=== PATIENT | male | born 1945 | race Caucasian/White ===

== ENCOUNTER 2016-07-23 11:49 | Inpatient (IN) ==
--- NOTE | 2016-07-23 12:56 | Emergency Department Note ---
Disposition Clinical Impression: Fever of unknown origin, Acute renal insufficiency Altered mental status Qualifiers: Altered mental status type: unspecified Qualified Code(s): R41.82 - Altered mental status, unspecified Disposition: Admitted As Inpatient Condition: Fair Referrals: NO,PCP [Non-Partnered Physician] - Forms: ED Satisfaction Letter General Adult HPI - General Chief complaint: ED Shortness of Breath/Dyspnea Stated complaint: JOSIAH/Hallucinations/Swelling feet Time Seen by Provider: 07/23/16 12:44 Source: patient, family Limitations: no limitations - History of Present Illness HPI Narrative: 71-year-old male presents to the emergency department complaining of intermittent fevers, cough and vomiting up black fluid today. He has been in the hospital 2 times over the past 2-3 months for pneumonia. He has been on multiple antibiotics but states he still been spiking fevers. His girlfriend notes he is becoming confused and usually associated when he has a high fever around 102. He complains of lower extremity swelling and swelling in his abdomen. He denies any history of liver disease or heart disease. Denies any history of strokes or MIs. Today he vomited one time and noted that the fluid was black. He has had normal bowel movements without any melena or hematochezia. He denies any abdominal pain, pain into his back or pain in his chest. Denies any lightheadedness or passing out. Denies any weakness in his extremities. Denies any numbness in his extremities. Pain Scale: 5 - Related Data Home Medications Medication Instructions Recorded Confirmed Duloxetine HCl [Cymbalta] 60 mg PO BID 05/07/16 07/23/16 Gabapentin [Neurontin] 800 mg PO TID 05/07/16 07/23/16 HYDROcodone/Acet 10/325 mg [[place] 1 tab PO QID PRN 05/07/16 07/23/16 10-325 mg] Losartan Potassium [Cozaar] 100 mg PO DAILY 05/07/16 07/23/16 Lovastatin 40 mg PO DAILY 05/07/16 07/23/16 Montelukast [Singulair] 10 mg PO DAILY 05/07/16 07/23/16 Omeprazole [PriLOSEC] 40 mg PO BID 05/07/16 07/23/16 Tizanidine HCl [Zanaflex] 4 mg PO Q8H PRN 05/07/16 07/23/16 Aspirin 81 mg PO DAILY 05/24/16 07/23/16 Budesonide/Formoterol 160/4.5 2 puff IH BIDR 05/24/16 07/23/16 [Symbicort 160/4.5] Cholecalciferol (Vitamin D3) 50,000 unit PO OTT 05/24/16 07/23/16 [Vitamin D3] Fluticasone Propionate Nasal 1 spray NS DAILY PRN 05/24/16 07/23/16 [Flonase] Previous Rx's Medication Instructions Recorded Ipratropium/Albuterol Neb [Duoneb] 3 ml IH Q6HR PRN #30 inhsol 05/09/16 Amlodipine [Norvasc] 10 mg PO DAILY #30 tablet 05/27/16 Cyanocobalamin (B-12) [Vitamin B12] 1,000 mcg PO DAILY #30 tablet 05/27/16 Ferrous Sulfate 325 mg PO BIDWM #60 tablet 05/27/16 Folic Acid 5 mg PO DAILY #30 tablet 05/27/16 Allergies Allergy/AdvReac Type Severity Reaction Status Date / Time clonazepam [From Klonopin] AdvReac Nausea Verified 05/21/16 16:48 Oxycodone AdvReac Nausea Verified 05/24/16 10:21 Oxymorphone [From Opana] AdvReac Nausea Verified 05/24/16 10:20 All systems ED: reviewed and negative except as stated. Constitutional: Reports: fever Eyes: Denies: vision change Cardiovascular: Denies: chest pain, palpitations, dyspnea on exertion, syncope Respiratory: Reports: cough, wheezes Gastrointestinal: Denies: abdominal pain, nausea, vomiting, melena, hematochezia Musculoskeletal: Denies: back pain, neck pain Integumentary: Denies: rash Neurological: Denies: headache, weakness, numbness Past Medical History - Past Medical History Medical history: Reports: COPD, hyperlipidemia, hypertension, other Surgical history: Reports: herniorrhaphy Psychiatric history: Reports: no psych history - Social History Smoking Status: Former smoker Smokeless Tobacco Status: No Alcohol use: Reports: none Drug use: Reports: none Physical Exam General: He appears well, he is talkative and appropriate, he is alert and oriented 3 but does get intermittently confused. Cardiovascular: Regular rate and rhythm. S1, S2. No murmurs, rubs or gallops. Respiratory: Expiratory wheezes throughout. No respiratory distress. Intermittent dry coughing. Abdomen: Soft, nontender. No guarding, rebound or rigidity. Pulsatile abdominal mass. No palpable organomegaly including the liver. No epigastric tenderness. No palpable hernias. Eyes: Pupils equally round and reactive to light, extraocular muscles intact, conjunctiva clear, no scleral icterus HENT: Normocephalic, no signs of head injury. No oral mucosal lesions. Moist mucous membranes. No pharyngeal swelling. No tenderness over the TMJs. No difficulty swallowing, breathing or speaking. He does have some cervical, nontender adenopathy. Neuro: Cranial nerves intact. No motor or sensory deficit. 5/5 upper and lower shoulder strength throughout. Sensation intact throughout. Musculoskeletal: No joint tenderness or swelling. Bilateral lower extremity edema which is symmetric and involves the shins and ankles bilaterally. He has no tenderness or overlying redness. No signs of infection. Skin: No lesions. No diaphoresis. Normal turgor. Normal color Psych: Appropriate - General Limitations: no limitations General appearance: alert, in no apparent distress Course Course Narrative: 71-year-old male presents to the emergency department with ongoing intermittent fevers as high as 104. He gets very altered and confused and had reported hallucinations at home per his . He was recently in the hospital for pneumonia and has a history of COPD and underlying lung disease. A CT scan chest was performed one week ago on an outpatient basis which showed resolution of the pneumonia. On exam today he does appear intermittently confused but is awake and oriented. His vitals are stable. At this time is unclear what is causing his fever but after reviewing his chart he did have a CT scan of his neck performed 2 months ago which did show a mass on his vocal cords and some reactive adenopathy, there is concern that this could be malignancy and perhaps causing his fever. His labs reveal an acute renal insufficiency with a GFR of 39 in the presence of normal renal function previously. I feel the patient requires admission for acute renal failure and fever of unknown origin with altered mental status. Chest x-ray today is normal, urine is normal, blood cultures pending. I do not have a source of infection so I do not feel the patient is septic or needs septic protocol initiated at this time. Patient will require further evaluation in the hospital. I discussed with the on-call hospitalist, Dr. Ross who acccept for admission, no further orders at this time Vital Signs Temperature 99.1 F 07/23/16 12:17 Pulse Rate 102 07/23/16 12:17 Respiratory Rate 22 07/23/16 12:17 Blood Pressure 118/68 07/23/16 12:17 O2 Sat by Pulse Oximetry 95 07/23/16 12:17 Temperature 99.1 F 07/23/16 12:17 Pulse Rate 102 07/23/16 12:17 Respiratory Rate 18 07/23/16 13:41 Blood Pressure 118/68 07/23/16 12:17 O2 Sat by Pulse Oximetry 89 L 07/23/16 13:41 Oxygen Delivery Oxygen Delivery Room Air Medical Decision Making - Lab Data Result diagrams: 07/23/16 13:26 07/23/16 13:26 Lab Results 07/23/16 07/23/16 07/23/16 Range/Units 13:26 13:26 13:26 WBC 13.4 H (4.3-11.1) K/mcL RBC 3.48 L (4.19-5.50) M/mcL Hgb 10.4 L (12.9-16.9) g/dL Hct 32.3 L (37.5-50.1) % MCV 92.8 (83.0-100.0) fL MCH 29.9 (28.0-33.3) pg MCHC 32.2 (31.6-35.5) g/dL RDW 13.7 (11.5-14.5) % Plt Count 265 (140-400) K/mcL MPV 9.8 (9.4-12.4) fL Immature Gran % 0.4 (0-4) % Seg Neutrophils % 69.3 % Lymphocytes % 14.1 % Monocytes % 6.1 % Eosinophils % 9.5 % Basophils % 0.6 % Neutrophils # 9.3 H (1.6-8.9) K/mcL Lymphocytes # 1.9 (0.6-4.6) K/mcL Monocytes # 0.8 (0.0-1.3) K/mcL Eosinophils # 1.3 H (0.0-0.6) K/mcL Basophils # 0.1 (0.0-0.2) K/mcL Nucleated RBCs/100 WBC 0.2 H (0) /100 WBC Platelet Estimate Normal (Normal) Sodium 137 (136-145) mEq/L Potassium 4.5 (3.5-4.5) mEq/L Chloride 104 (98-109) mEq/L Carbon Dioxide 25 (19-29) mEq/L BUN 29 H (8-26) mg/dL Creatinine 1.75 H (0.72-1.25) mg/dL Est GFR ( Amer) 47 L (> 60) Est GFR (Non-Af Amer) 39 L (> 60) BUN/Creatinine Ratio 17 (6-26) Glucose 92 (70-99) mg/dL Calculated Osmolality 289 (280-300) Calcium 8.9 (8.6-10.8) mg/dL Total Bilirubin 0.5 (0.2-1.2) mg/dL Direct Bilirubin 0.2 (0.0-0.5) mg/dL Indirect Bilirubin 0.3 (0.0-1.2) mg/dL AST 23 (5-34) Units/L ALT 19 (0-55) Units/L Alkaline Phosphatase 69 (38-126) Units/L Ammonia (18-72) mcmol/L Troponin I 0.01 (0-0.03) ng/mL B-Natriuretic Peptide (0-100) pg/mL Serum Total Protein 6.6 (6.0-8.3) g/dL Albumin 3.1 L (3.5-5.0) g/dL Globulin 3.5 (2.4-3.5) g/dL Albumin/Globulin Ratio 0.9 L (1.1-2.2) Urine Color (Yellow) Urine Clarity (Clear) Urine pH (5.0-8.0) pH Units Ur Specific [place] (1.010-1.025) Urine Protein (Neg-Trace) mg/dL Urine Glucose (UA) (Normal) mg/dL Urine Ketones (Negative) mg/dL Urine Blood (Negative) Urine Nitrite (Negative) Urine Bilirubin (Negative) Urine Urobilinogen (Normal) mg/dL Ur Leukocyte Esterase (Negative) Ur Culture Indicated? (NO) 07/23/16 07/23/16 07/23/16 Range/Units 13:26 14:24 14:34 WBC (4.3-11.1) K/mcL RBC (4.19-5.50) M/mcL Hgb (12.9-16.9) g/dL Hct (37.5-50.1) % MCV (83.0-100.0) fL MCH (28.0-33.3) pg MCHC (31.6-35.5) g/dL RDW (11.5-14.5) % Plt Count (140-400) K/mcL MPV (9.4-12.4) fL Immature Gran % (0-4) % Seg Neutrophils % % Lymphocytes % % Monocytes % % Eosinophils % % Basophils % % Neutrophils # (1.6-8.9) K/mcL Lymphocytes # (0.6-4.6) K/mcL Monocytes # (0.0-1.3) K/mcL Eosinophils # (0.0-0.6) K/mcL Basophils # (0.0-0.2) K/mcL Nucleated RBCs/100 WBC (0) /100 WBC Platelet Estimate (Normal) Sodium (136-145) mEq/L Potassium (3.5-4.5) mEq/L Chloride (98-109) mEq/L Carbon Dioxide (19-29) mEq/L BUN (8-26) mg/dL Creatinine (0.72-1.25) mg/dL Est GFR ( Amer) (> 60) Est GFR (Non-Af Amer) (> 60) BUN/Creatinine Ratio (6-26) Glucose (70-99) mg/dL Calculated Osmolality (280-300) Calcium (8.6-10.8) mg/dL Total Bilirubin (0.2-1.2) mg/dL Direct Bilirubin (0.0-0.5) mg/dL Indirect Bilirubin (0.0-1.2) mg/dL AST (5-34) Units/L ALT (0-55) Units/L Alkaline Phosphatase (38-126) Units/L Ammonia 9 L (18-72) mcmol/L Troponin I (0-0.03) ng/mL B-Natriuretic Peptide 10 (0-100) pg/mL Serum Total Protein (6.0-8.3) g/dL Albumin (3.5-5.0) g/dL Globulin (2.4-3.5) g/dL Albumin/Globulin Ratio (1.1-2.2) Urine Color Yellow (Yellow) Urine Clarity Clear (Clear) Urine pH 6.0 (5.0-8.0) pH Units Ur Specific [place] 1.011 (1.010-1.025) Urine Protein Negative (Neg-Trace) mg/dL Urine Glucose (UA) Normal (Normal) mg/dL Urine Ketones Negative (Negative) mg/dL Urine Blood Negative (Negative) Urine Nitrite Negative (Negative) Urine Bilirubin Negative (Negative) Urine Urobilinogen Normal (Normal) mg/dL Ur Leukocyte Esterase Negative (Negative) Ur Culture Indicated? NO (NO) - EKG Data EKG #1 EKG results narrative: EKG shows a sinus rhythm with a rate of 94 bpm. There is no ST elevation or depression. UT, QRS, QT interval within normal limits. Normal axis. Normal R- wave progression. No T wave changes. Previous EKG on 05/06/16 shows similar wave morphology without any acute ischemic changes. Attestation Statement - Attestation Attestation: I examined this patient and my medical decision-making was reviewed with the [employer] MANAGER/PA/Advanced Practice Nurse/Resident Physician. I agree with the documented findings, disposition and treatment plan as described except to the extent set forth below. Patient presents to the emergency department from home. Family states is not having periods of confusion that are associated with fevers. Abdomen on for a few weeks. Has been treated for pneumonia couple of times. It continues. Had a fever 104 last night. On examination he is awake alert and appropriate for me. He is oriented 3. Lungs with diffuse expiratory wheezing. Abdomen soft nontender. Plan. Chest x-ray does not show any acute infections. He does have an elevated white blood cell count. Low-grade temp. Culture sent. Patient is admitted for further workup of his fever.
[2016-07-23] MEDS ORDERED: Ipratropium/Albuterol Neb 3 ML IH ONE (13:29)
[2016-07-23 13:41] LABS: Basophils # 0.1 K/mcL (0.0-0.2); Basophils % 0.6 %; Eosinophils # 1.3 K/mcL (0.0-0.6); Eosinophils % 9.5 %; Hematocrit 32.3 % (37.5-50.1); Hemoglobin 10.4 g/dL (12.9-16.9); Immature Granulocytes % 0.4 % (0-4); Lymphocytes # 1.9 K/mcL (0.6-4.6); Lymphocytes % 14.1 %; Mean Corpuscular HGB Conc 32.2 g/dL (31.6-35.5); Mean Corpuscular Hemoglobin 29.9 pg (28.0-33.3); Mean Corpuscular Volume 92.8 fL (83.0-100.0); Mean Platelet Volume 9.8 fL (9.4-12.4); Monocytes # 0.8 K/mcL (0.0-1.3); Monocytes % 6.1 %; Neutrophils # 9.3 K/mcL (1.6-8.9); Nucleated Red Blood Cells 0.2 /100 WBC (0); Platelet Count 265 K/mcL (140-400); Red Blood Count 3.48 M/mcL (4.19-5.50); Red Cell Distribution Width 13.7 % (11.5-14.5); Segmented Neutrophils % 69.3 %
[2016-07-23 13:53] LABS: Albumin 3.1 g/dL (3.5-5.0); Albumin/Globulin Ratio 0.9 (1.1-2.2); Bilirubin,Direct 0.2 mg/dL (0.0-0.5); Bilirubin,Indirect 0.3 mg/dL (0.0-1.2); Bilirubin,Total 0.5 mg/dL (0.2-1.2); Calcium 8.9 mg/dL (8.6-10.8); Globulin 3.5 g/dL (2.4-3.5); Total Protein 6.6 g/dL (6.0-8.3)
[2016-07-23 13:54] LABS: Potassium 4.5 mEq/L (3.5-4.5)
[2016-07-23] MEDS ORDERED: 0.9 % Sodium Chloride 1,000 ML IV ONE ×2 (14:03→14:20)
[2016-07-23 14:05] LABS: Platelet Estimate Normal (Normal)
[2016-07-23 14:38] LABS: Bilirubin,Urine Negative (Negative); Blood,Urine Negative (Negative); Clarity,Urine Clear (Clear); Color,Urine Yellow (Yellow); Glucose,Urine (UA) Normal (Normal); Ketones,Urine Negative (Negative); Leukocyte Esterase,Urine Negative (Negative); Nitrite,Urine Negative (Negative); Protein,Urine Negative (Neg-Trace); Specific Gravity,Urine 1.011 (1.010-1.025); Urobilinogen,Urine Normal (Normal)
[2016-07-23] MEDS ORDERED: Acetaminophen 325 MG TABLET PO PRN (16:49)
--- NOTE | 2016-07-23 16:49 | Internal Med History&Physical ---
<John Chaudhary - Last Filed: 07/23/16 17:09> Date of Encounter: 07/23/16 Time of Encounter: 16:00 Assessment and Plan (1) Sepsis Current visit: No Status: Acute - 4/4 SIRS criteria (tachycardia, tachypnea, leukocytosis and intermittent fevers per patient). - Possible sources of infection include pneumonia (bacterial, histoplasmosis, aspergillosis) and GI. 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 - UA doesn't suggest UTI. - Blood cultures pending. - Check respiratory infection panel, HIV, viral hepatitis panel, ESR, CRP, ferritin. - Plan to have CT chest & A/P with IV contrast for further evaluation once renal function improves. - Start vancomycin, Zosyn and Levaquin. - IV NS bolus and maintenance. - Closely monitor. Qualifiers: Sepsis type: sepsis due to unspecified organism Qualified Code(s): A41.9 - Sepsis, unspecified organism (2) Healthcare-associated pneumonia Current visit: No Status: Acute - Concern of HCAP given recent hospitalization, despite CXR seems to be unremarkable. - Check respiratory infection panel. - Start vancomycin, Zosyn, Levaquin. (3) LAURYN (acute kidney injury) Current visit: No Status: Acute - SCr 1.75 on initial presentation, elevated from baseline ~ 1.1. - Likely secondary to dehydration (given reported poor oral intake) and/or sepsis. - IV NS bolus and maintenance. - Continue to monitor renal function and electrolytes. (4) Anemia Current visit: No Status: Chronic - Hgb 10.4 today, relative stable compared to 9.9 two months ago. - Concern of possible hemoptysis/hematemesis given reported coughing/throwing up black content. - Fecal Hemoccult pending. - Closely monitor H&H. Qualifiers: Anemia type: folate deficiency Folate deficiency anemia type: dietary Qualified Code(s): 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 (5) COPD (chronic obstructive pulmonary disease) Current visit: No Status: Chronic - bronchodilator prn. Qualifiers: COPD type: COPD with acute lower respiratory infection Qualified Code(s): J44.0 - Chronic obstructive pulmonary disease with acute lower respiratory infection (6) HTN (hypertension) Current visit: No Status: Chronic - Continue home regimen anti-hypertensive. Qualifiers: Hypertension type: essential hypertension Qualified Code(s): I10 - Essential (primary) hypertension (7) DVT prophylaxis Current visit: No Status: Acute - EPCD. - No pharmacological DVT prophylaxis for now given the concern of potential hemoptysis/hematemesis. Internal Medicine - H&P: HPI Chief complaint: Intermittent fever & altered mental status History of present illness: Mr. Sweet is a 71 yo male with PMH of COPD, HTN and black lung disease. Patient presented with intermittent fevers and AMS. Per patient's family at bedside, patient has fever as high as 104 at home and it's associated with altered mental status. Patient also recalls cough/throwing up black content. Patient has significant cough and chronic shortness of breath. Patient also complains of abdominal distension & bilateral lower extremity swelling. Patient also has some difficulty urinating but denies dysuria or hematuria. Patient denies weight loss, night sweat, nausea, vomiting, diarrhea, hematochezia, melena, vision change, hearing change, numbness/tingling, focal weakness. Patient does have some right ear pain and occasional pink discharge from ear to nose. Patient was seen by Dr. Mazariegos of [facility] who thinks patient has TMJ arthritis. Patient was hospitalized in April & May 2016 for pneumonia. Patient and his family have significant concern about the intermittent fever and likes to have complete work-up. Patient agrees to be checked for HIV. Past Med Surg Social Fam HX - Past Medical History Medical history: COPD, hyperlipidemia, hypertension, other Psychiatric history: no psych history - Past Surgical History Surgical History: herniorrhaphy - Social History Smoking Status: Former smoker Smokeless Tobacco Status: No Alcohol use: none Drug use: none Internal Medicine - H&P: Meds Duloxetine HCl [Cymbalta] 60 mg PO BID 05/07/16 [History] Gabapentin [Neurontin] 800 mg PO TID 05/07/16 [History] HYDROcodone/Acet 10/325 mg [[place] 10-325 mg] 1 tab PO QID PRN 05/07/16 [History] Losartan Potassium [Cozaar] 100 mg PO DAILY 05/07/16 [History] Lovastatin 40 mg PO DAILY 05/07/16 [History] Montelukast [Singulair] 10 mg PO DAILY 05/07/16 [History] Omeprazole [PriLOSEC] 40 mg PO BID 05/07/16 [History] Tizanidine HCl [Zanaflex] 4 mg PO Q8H PRN 05/07/16 [History] Ipratropium/Albuterol Neb [Duoneb] 3 ml IH Q6HR PRN #30 inhsol 05/09/16 [Rx] Aspirin 81 mg PO DAILY 05/24/16 [History] Budesonide/Formoterol 160/4.5 [Symbicort 160/4.5] 2 puff IH BIDR 05/24/16 [ History] Cholecalciferol (Vitamin D3) [Vitamin D3] 50,000 unit PO OTT 05/24/16 [History] Fluticasone Propionate Nasal [Flonase] 1 spray NS DAILY PRN 05/24/16 [History] Amlodipine [Norvasc] 10 mg PO DAILY #30 tablet 05/27/16 [Rx] Cyanocobalamin (B-12) [Vitamin B12] 1,000 mcg PO DAILY #30 tablet 05/27/16 [Rx] Ferrous Sulfate 325 mg PO BIDWM #60 tablet 05/27/16 [Rx] Folic Acid 5 mg PO DAILY #30 tablet 05/27/16 [Rx] Allergies clonazepam [From Klonopin] Adverse Reaction (Verified 05/21/16 16:48) Nausea Oxycodone Adverse Reaction (Verified 05/24/16 10:21) Nausea Oxymorphone [From Opana] Adverse Reaction (Verified 05/24/16 10:20) Nausea tiotropium [From Spiriva with HandiHaler] Adverse Reaction (Verified 07/23/16 16 :41) Itching All Systems PM: A 10-system review of systems was performed and is negative for pertinent findings except as documented above in the HPI. - Constitutional Constitutional: anorexia, chills, fever(s), no weight loss - EENT Eyes: no change in vision Ears: no decreased hearing Nose, mouth and throat: no dysphagia, no nasal congestion, no odynophagia, no sore throat - Cardiovascular Cardiovascular ROS IM: no chest pain, no lightheadedness, no palpitations, no syncope - Respiratory Respiratory: cough, dyspnea, hemoptysis - Gastrointestinal Gastrointestinal: as per HPI, no abdominal pain, no diarrhea, no hematochezia, no melena, no nausea, no vomiting - Genitourinary Genitourinary ROS male: difficulty urinating, no dysuria, no hematuria - Musculoskeletal Musculoskeletal ROS IM: back pain, no arthralgias, no myalgias - Integumentary Integumentary IM: no pruritus, no rash - Neurological Neurological ROS: no focal weakness, no numbness, no tingling - Hematologic/Lymphatic Hematologic/Lymphatic: easy bruising, no easy bleeding - Constitutional Vitals: Temp Pulse Resp BP Pulse Ox 98.1 F 92 18 138/80 97 07/23/16 16:41 07/23/16 15:13 07/23/16 16:41 07/23/16 16:41 07/23/16 15:13 General appearance: Present: cooperative, A&O X 3, no acute distress - Head Head exam: Present: atraumatic, normocephalic - Eye Eye exam: Present: PERRL, conjuntiva pink, sclera anicteric - Neck Neck exam general surgery: Present: supple, trachea midline. Absent: lymphadenopathy - Respiratory Respiratory exam: Present: rhonchi, wheezes. Absent: accessory muscle use, rales - Cardiovascular Cardiovascular exam: Present: +S1, +S2, tachycardia. Absent: diastolic murmur, gallop, rubs, systolic murmur - GI/Abdominal GI/Abdominal exam: Present: distended, normal bowel sounds, soft, no peritoneal signs. Absent: tenderness - Extremities Exam Extremities exam: Present: pedal edema (Mild), warm, radial pulses palpable and symetrical. Absent: calf tenderness, cyanotic - Neurological Exam Neurological exam: Present: CN II-XII intact, oriented X3, no focal deficits. Absent: pronater drift, facial droop, speech deficit - Skin Skin exam: Present: dry, intact, warm Internal Med - H&P Results - Labs CBC & Chem 7: 07/23/16 13:26 07/23/16 13:26 <Kael Ross - Last Filed: 07/23/16 18:59> Date of Encounter: 07/23/16 Internal Medicine - H&P: HPI History of present illness: Mr. Sweet is a 71 year old male Past Med Surg Social Fam HX - Family History Mother Living Status: Hx Family Cardiac Disorders: Yes (HTN) Father Living Status: Hx Family Cardiac Disorders: Yes (HTN) All Systems PM: A 10-system review of systems was performed and is negative for pertinent findings except as documented above in the HPI. - Constitutional Vitals: Temp Pulse Resp BP Pulse Ox 98.5 F 92 16 131/59 96 07/23/16 16:51 07/23/16 16:51 07/23/16 16:51 07/23/16 16:51 07/23/16 16:51 Internal Med - H&P Results - Labs CBC & Chem 7: 07/23/16 13:26 07/23/16 13:26 - Attending Attestation I have seen and examined this patient independently. I have discussed the case with the resident, Dr. Ernestina Chaudhary. I agree with the data gathering in the HPI, physical examination findings, assessment and plan as documented by the resident. Fever, needs workup, will start empiric coverage. LAURYN, will give iv fluids prior to CT. D/W patient.
[2016-07-23] MEDS ORDERED: Levofloxacin 750 MG/150 ML 750 MG/150 ML BAG IVPB SCH (17:00)
[2016-07-23] MEDS ORDERED: Vancomycin 1,000 MG in D5% in Water 250 ML IVPB SCH (17:00)
[2016-07-23] MEDS ORDERED: 0.9 % Sodium Chloride 1,000 ML IVC ONE (17:10)
[2016-07-23] MEDS ORDERED: Vancomycin 1,500 MG in D5% in Water 250 ML IVPB ONE (17:52)
--- NOTE | 2016-07-23 17:55 | Electrocardiograph Report ---
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
[2016-07-23 18:32] LABS: % Iron Saturation 6 % (20-55); C-Reactive Protein 63 mg/L (Less than 5); Iron 18 mcg/dL (65-175); Transferrin 222 mg/dL (174-364)
[2016-07-23 18:54] LABS: Ferritin 94 ng/ml (22-275)
[2016-07-23] MEDS: 0.9 % Sodium Chloride 1,000 ML IVC SCH (19:08)
[2016-07-23] MEDS: Budesonide/Formoterol 160/4.5 MDI IH SCH (21:05)
[2016-07-23] MEDS: Ipratropium/Albuterol Neb 3 ML IH PRN (21:05)
[2016-07-23] MEDS: Gabapentin 400 MG CAPSULE PO SCH (21:21)
[2016-07-23] MEDS: Piperacillin/Tazobactam 3.375 GM in D5% in Water (Mini-Bag+) 100 ML IVPB SCH (23:24)
[2016-07-24 00:15] LABS: Adenovirus Not Detected (Not Detect); Bordetella Pertussis Not Detected (Not Detect); Chlamydophila pneumoniae Not Detected (Not Detect); Coronavirus 229E Not Detected (Not Detect); Coronavirus HKU1 Not Detected (Not Detect); Coronavirus NL63 Not Detected (Not Detect); Coronavirus OC43 Not Detected (Not Detect); Human Metapneumovirus Not Detected (Not Detect); Human Rhinovirus/Enterovirus Not Detected (Not Detect); Influenza A Subtype 2009 H1 Not Detected (Not Detect); Influenza A Untypeable Not Detected (Not Detect); Influenza B Not Detected (Not Detect); Mycoplasma pneumoniae Not Detected (Not Detect); Parainfluenza Virus 1 Not Detected (Not Detect); Parainfluenza Virus 2 Not Detected (Not Detect); Parainfluenza Virus 3 Not Detected (Not Detect); Parainfluenza Virus 4 Not Detected (Not Detect); Respiratory Syncytial Virus Not Detected (Not Detect)
[2016-07-24 01:37] LABS: HIV-1&2 Antibody & p24 Ag Nonreactive (Nonreactive); Hepatitis A Antibody IgM Nonreactive (Nonreactive); Hepatitis B Core IgM Nonreactive (Nonreactive); Hepatitis B Surface Antigen Nonreactive (Nonreactive); Hepatitis C Virus Antibody Nonreactive (Nonreactive)
[2016-07-24 05:02] LABS: Basophils % 0.5 %; Eosinophils # 1.2 K/mcL (0.0-0.6); Eosinophils % 16.5 %; Hematocrit 32.3 % (37.5-50.1); Hemoglobin 10.1 g/dL (12.9-16.9); Immature Granulocytes % 0.4 % (0-4); Lymphocytes # 1.6 K/mcL (0.6-4.6); Lymphocytes % 21.3 %; Mean Corpuscular HGB Conc 31.3 g/dL (31.6-35.5); Mean Corpuscular Hemoglobin 29.3 pg (28.0-33.3); Mean Corpuscular Volume 93.6 fL (83.0-100.0); Mean Platelet Volume 9.3 fL (9.4-12.4); Monocytes # 0.5 K/mcL (0.0-1.3); Monocytes % 6.5 %; Neutrophils # 4.1 K/mcL (1.6-8.9); Platelet Count 232 K/mcL (140-400); Red Blood Count 3.45 M/mcL (4.19-5.50); Red Cell Distribution Width 13.7 % (11.5-14.5); Segmented Neutrophils % 54.8 %
[2016-07-24 05:26] LABS: BUN/Creatinine Ratio 14 (6-26); Calcium 8.8 mg/dL (8.6-10.8); Carbon Dioxide 25 mEq/L (19-29); Chloride 111 mEq/L (98-109); Glucose 88 mg/dL (70-99); Osmolality,Calculated 297 (280-300); Sodium 143 mEq/L (136-145); eGFR For African Americans > 60 (> 60); eGFR For Non-African Americans 60 (> 60)
[2016-07-24 05:27] LABS: Blood Urea Nitrogen 17 mg/dL (8-26)
[2016-07-24 05:28] LABS: Potassium 4.3 mEq/L (3.5-4.5)
[2016-07-24] MEDS: 0.9 % Sodium Chloride 1,000 ML IVC SCH ×2 (07:36→23:06)
[2016-07-24] MEDS: amLODIPine 5 MG TABLET PO SCH (07:37)
[2016-07-24] MEDS: Piperacillin/Tazobactam 3.375 GM in D5% in Water (Mini-Bag+) 100 ML IVPB SCH ×3 (07:37→23:06)
[2016-07-24] MEDS: Gabapentin 400 MG CAPSULE PO SCH ×3 (07:38→20:28)
[2016-07-24] MEDS: Aspirin 81 MG TAB.CHEW PO SCH (07:38)
[2016-07-24] MEDS: Budesonide/Formoterol 160/4.5 MDI IH SCH ×2 (08:18→20:00)
[2016-07-24] MEDS: Ipratropium/Albuterol Neb 3 ML IH PRN (13:28)
--- NOTE | 2016-07-24 14:16 | Internal Med Progress Note ---
<Iraida Botello Niharika - Last Filed: 07/24/16 14:11> Date of Encounter: 07/24/16 Time of Encounter: 09:10 - Assessment and plan (1) Sepsis Current Visit: Yes Status: Acute Assessment and plan: 4/4 SIRS criteria on admission (tachycardia, tachypnea, leukocytosis, intermittent fevers per patient) Today--T:97.9F, P:106, R:17, BP:131/68, O2:93% (RA) Pneumonia possible source of infection UA completed and not suggestive of UTI Blood cultures pending Respiratory panel, HIV, viral hepatitis panel negative CRP elevated at 63, ESR elevated at 30 CT abd/pelvis, CT chest, CT neck with contrast ordered Vanc, Zosyn, Levaquin for antibiotic coverage IVF Continue to monitor Qualifiers: Sepsis type: sepsis due to unspecified organism Qualified Code(s): A41.9 - Sepsis, unspecified organism (2) Healthcare-associated pneumonia Current Visit: No Status: Acute Assessment and plan: Possible HCAP given recent hospitalization Respiratory panel negative Antibiotic coverage with Vanc, Zosyn, Levaquin (3) LAURYN (acute kidney injury) Current Visit: No Status: Acute Assessment and plan: Creatinine 1.20 today (1.75 yesterday) IVF for rehydration Continue to monitor (4) Anemia Current Visit: No Status: Chronic Assessment and plan: Hgb 10.1 today (10.4 yesterday), 9.9 two months ago Concern for possible hemoptysis/hematemesis given reported coughing/throating up black stuff Continue to monitor Qualifiers: Anemia type: folate deficiency Folate deficiency anemia type: dietary Qualified Code(s): 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 (5) COPD (chronic obstructive pulmonary disease) Current Visit: No Status: Chronic Assessment and plan: Bronchodilators prn Qualifiers: COPD type: COPD with acute lower respiratory infection Qualified Code(s): J44.0 - Chronic obstructive pulmonary disease with acute lower respiratory infection (6) HTN (hypertension) Current Visit: No Status: Chronic Assessment and plan: Continue home medications Qualifiers: Hypertension type: essential hypertension Qualified Code(s): I10 - Essential (primary) hypertension (7) DVT prophylaxis Current Visit: No Status: Acute Assessment and plan: EPCDs for DVT prophylaxis now - Subjective Interval history: Pt reports that he is feeling better today. He denies any subjective fevers over night and that his abdominal distention seems to have improved. He continues to have a cough and shortness of breath which he states is chronic for him. He reports that the cough is still productive. He denies any blood or dark tarry stools since arrival. He admits that before being admitted to [facility], he had an episode of dark emesis which filled the toilet. - Constitutional Vitals: Temp Pulse Resp BP Pulse Ox 97.9 F 98 16 115/65 91 L 07/24/16 11:20 07/24/16 11:20 07/24/16 11:20 07/24/16 11:20 07/24/16 11:20 General appearance: Present: cooperative, A&O X 3, no acute distress - Head Head exam: Present: atraumatic, normocephalic - Eye Eye exam: Present: PERRL, conjuntiva pink, sclera anicteric Pupils: Present: PERRL - ENT ENT exam: Present: mucous membranes moist - Neck Neck exam general surgery: Present: lymphadenopathy (Left anterior cervical lymphadenopathy), supple, trachea midline - Respiratory Respiratory exam: Present: wheezes (Course breath sounds and wheezing scattered throughout) - Cardiovascular Cardiovascular exam: Present: +S1, +S2, tachycardia. Absent: diastolic murmur, gallop, rubs, systolic murmur - GI/Abdominal GI/Abdominal exam: Present: normal bowel sounds, soft, tenderness (RUQ and epigastric pain, negative Nye's sign). Absent: distended, guarding, rebound , rigid - Extremities Exam Extremities exam: Present: warm, radial pulses palpable and symetrical. Absent : calf tenderness, cyanotic, pedal edema - Neurological Exam Neurological exam: Present: CN II-XII intact, oriented X3, no focal deficits. Absent: pronater drift, facial droop, speech deficit - Skin Skin exam: Present: dry, intact Internal Medicine: Result - Labs CBC & Chem 7: 07/24/16 04:45 07/24/16 04:45 Labs: Short CBC 07/24/16 Range/Units 04:45 WBC 7.5 (4.3-11.1) K/mcL Hgb 10.1 L (12.9-16.9) g/dL Hct 32.3 L (37.5-50.1) % Plt Count 232 (140-400) K/mcL Neutrophils # 4.1 (1.6-8.9) K/mcL [facility] 07/24/16 04:45 Sodium 143 Potassium 4.3 Chloride 111 H Carbon Dioxide 25 BUN 17 D Creatinine 1.20 Glucose 88 Calcium 8.8 - VTE Documentation of Mechanical Device: Intermittent pneumatic compression device Consult Discharge Plan - Plan Referrals: Leonor Russo CNP [Primary Care Provider] - 07/31/16 1:00 pm <Kael Ross - Last Filed: 07/24/16 18:18> Date of Encounter: 07/24/16 - Constitutional Vitals: Temp Pulse Resp BP Pulse Ox 98.5 F 101 18 129/65 95 07/24/16 15:56 07/24/16 15:56 07/24/16 15:56 07/24/16 15:56 07/24/16 15:56 Internal Medicine: Result - Labs CBC & Chem 7: 07/24/16 04:45 07/24/16 04:45 Labs: Short CBC 07/24/16 Range/Units 04:45 WBC 7.5 (4.3-11.1) K/mcL Hgb 10.1 L (12.9-16.9) g/dL Hct 32.3 L (37.5-50.1) % Plt Count 232 (140-400) K/mcL Neutrophils # 4.1 (1.6-8.9) K/mcL [facility] 07/24/16 04:45 Sodium 143 Potassium 4.3 Chloride 111 H Carbon Dioxide 25 BUN 17 D Creatinine 1.20 Glucose 88 Calcium 8.8 - Impressions Impressions Abdomen/Pelvis CT 07/24/16 15:00 IMPRESSION: No acute intra-abdominal abnormality identified. Cholelithiasis without evidence of acute cholecystitis. No bowel obstruction, excessive amount of stool, or ascites. Normal appendix. Small hiatal hernia. D/ / Fernando Roach MD / Fernando Roach MD Interpreting Provider: Fernando Roach MD Chest CT 07/24/16 15:00 IMPRESSION: Scattered small ground-glass opacities throughout the lungs worrisome for diffuse multifocal pneumonia predominantly within the base of the left lower lobe and posterior segment of the right upper lobe. These opacities were not present on the exam of 07/12/2016. No worrisome adenopathy identified in the chest. No finding worrisome for malignancy. D/ / Fernando Roach MD / Fernando Roach MD Interpreting Provider: Fernando Roach MD Soft Tissue Neck CT 07/24/16 15:00 IMPRESSION: No acute abnormality of the soft tissue structures of the neck. Small normal sized lymph nodes in each side of the neck. No evident adenopathy. Overall the lymph nodes appear smaller than on the prior study. No other significant change from the prior study. D/ / Fernando Roach MD / Fernando Roach MD Interpreting Provider: Fernando Roach MD - Attending Attestation The patient was seen and examined with the resident during rounds. I agree with the physical examination findings, assessment and plan as documented by the resident, Dr. Botello. Fever reported prior to admission. No evidence of fever while inhouse. Continue with therapy for HCAP.
[2016-07-24] MEDS: *HR* HYDROcodone/Acet 10/325 mg TABLET PO PRN (15:36)
[2016-07-24] MEDS: Vancomycin 750 MG in D5% in Water 250 ML IVPB SCH (19:47)
[2016-07-24] MEDS: tiZANidine 4 MG TABLET PO PRN (22:00)
[2016-07-25 05:00] LABS: Basophils # 0.1 K/mcL (0.0-0.2); Basophils % 0.7 %; Eosinophils # 1.6 K/mcL (0.0-0.6); Eosinophils % 20.8 %; Hematocrit 31.1 % (37.5-50.1); Hemoglobin 10.1 g/dL (12.9-16.9); Immature Granulocytes % 0.4 % (0-4); Lymphocytes # 1.8 K/mcL (0.6-4.6); Lymphocytes % 24.4 %; Mean Corpuscular HGB Conc 32.5 g/dL (31.6-35.5); Mean Corpuscular Hemoglobin 30.1 pg (28.0-33.3); Mean Corpuscular Volume 92.8 fL (83.0-100.0); Mean Platelet Volume 9.4 fL (9.4-12.4); Monocytes # 0.5 K/mcL (0.0-1.3); Monocytes % 7.1 %; Neutrophils # 3.5 K/mcL (1.6-8.9); Platelet Count 239 K/mcL (140-400); Red Blood Count 3.35 M/mcL (4.19-5.50); Red Cell Distribution Width 13.6 % (11.5-14.5); Segmented Neutrophils % 46.6 %
[2016-07-25 05:04] LABS: BUN/Creatinine Ratio 11 (6-26); Blood Urea Nitrogen 11 mg/dL (8-26); Calcium 9.3 mg/dL (8.6-10.8); Carbon Dioxide 27 mEq/L (19-29); Chloride 108 mEq/L (98-109); Glucose 92 mg/dL (70-99); Osmolality,Calculated 291 (280-300); Sodium 141 mEq/L (136-145); eGFR For African Americans > 60 (> 60); eGFR For Non-African Americans > 60 (> 60)
[2016-07-25 05:41] LABS: Platelet Estimate Normal (Normal)
[2016-07-25] MEDS: Budesonide/Formoterol 160/4.5 MDI IH SCH ×2 (08:08→20:50)
[2016-07-25] MEDS: Ipratropium/Albuterol Neb 3 ML IH PRN (08:08)
[2016-07-25] MEDS: amLODIPine 5 MG TABLET PO SCH (08:41)
[2016-07-25] MEDS: Piperacillin/Tazobactam 3.375 GM in D5% in Water (Mini-Bag+) 100 ML IVPB SCH ×2 (08:43→17:36)
[2016-07-25] MEDS: Gabapentin 400 MG CAPSULE PO SCH ×3 (08:43→20:55)
[2016-07-25] MEDS: Aspirin 81 MG TAB.CHEW PO SCH (08:43)
[2016-07-25] MEDS: *HR* HYDROcodone/Acet 10/325 mg TABLET PO PRN (08:47)
--- NOTE | 2016-07-25 11:22 | Pulmonology Consult Note ---
<Ruben Boston - Last Filed: 07/25/16 11:18> Date of Encounter: 07/25/16 Time of Encounter: 11:19 Assessment and Plan (1) Fever of unknown origin Current Visit: Yes Status: Acute At this point there is no clear-cut explanation for the patient's fever. It should be noted that the patient has had no documented fevers on any of his admissions to the hospital. CT scan of the abdomen is unremarkable, CT scan of the soft tissues of the neck show small normal sized lymph nodes that have decreased in size from previous studies. CT scan of the chest did show scattered extremely small focal areas of groundglass opacities particularly in the left lower lobe. Differential at this time is broad and includes infectious , inflammatory, and malignant causes. As far as infectious causes there is been no pathogen isolated, hepatitis HIV panel are negative. Risk for TB is low given no reported history of exposure but we will test for this. We will perform bronchoscopy with BAL and brushings and sent for microbiology for further examination. The risks and benefits of the procedure were explained to patient and he is agreeable to proceed. Vasculitis is also a concern given his fevers are the patient is not having hemoptysis or hematuria. If the current evaluation does not reveal any cause it may be worthwhile to check an ANCA and get input from rheumatology. (2) COPD (chronic obstructive pulmonary disease) Current Visit: No Status: Chronic Patient may have an element of exacerbation with cough, shortness of breath and wheezing present on exam. Patient is currently on broad-spectrum antibiotics, short acting long-acting bronchodilators. We will add a 5 day course of prednisone 40 mg daily. Qualifiers: COPD type: COPD with acute lower respiratory infection Qualified Code(s): J44.0 - Chronic obstructive pulmonary disease with acute lower respiratory infection History of Present Illness Consult date: 07/25/16 Requesting physician: Kael Ross Reason for consult: other (Fever) Chief complaint: Fever History of present illness: Patient is a 71-year-old male with history of COPD who presents with recurring fevers. Patient states that at home several times a week at night he will have fevers and chills with temperatures measured as high as 104 degrees Fahrenheit. Prior to presentation he did have one episode of vomiting with black emesis. He states his been going on for months now and has had multiple admissions and physician evaluations without a clear-cut cause. In the past several months she has been admitted for pneumonia twice and has been treated with antibiotics. He states he felt a little better for short time on antibiotics but once off the antibiotics his symptoms return. He feels that his breathing is at about his baseline and he does report a mild cough but he said it is not too severe for him. He denies hemoptysis, hematuria. Past Med Surg Social Fam HX - Past Medical History Medical history: COPD, hyperlipidemia, hypertension, other Psychiatric history: no psych history - Past Surgical History Surgical History: herniorrhaphy - Social History Smoking Status: Former smoker Smokeless Tobacco Status: No Alcohol use: none Drug use: none - Family History Mother Living Status: Hx Family Cardiac Disorders: Yes (HTN) Father Living Status: Hx Family Cardiac Disorders: Yes (HTN) Medications and Allergies Duloxetine HCl [Cymbalta] 60 mg PO BID 05/07/16 [History] Gabapentin [Neurontin] 800 mg PO TID 05/07/16 [History] HYDROcodone/Acet 10/325 mg [[place] 10-325 mg] 1 tab PO QID PRN 05/07/16 [History] Losartan Potassium [Cozaar] 100 mg PO DAILY 05/07/16 [History] Lovastatin 40 mg PO DAILY 05/07/16 [History] Montelukast [Singulair] 10 mg PO HS 05/07/16 [History] Omeprazole [PriLOSEC] 40 mg PO BID 05/07/16 [History] Tizanidine HCl [Zanaflex] 4 mg PO Q8H PRN 05/07/16 [History] Ipratropium/Albuterol Neb [Duoneb] 3 ml IH Q6HR PRN #30 inhsol 05/09/16 [Rx] Aspirin 81 mg PO DAILY 05/24/16 [History] Budesonide/Formoterol 160/4.5 [Symbicort 160/4.5] 2 puff IH BIDR 05/24/16 [ History] Cholecalciferol (Vitamin D3) [Vitamin D3] 50,000 unit PO OTT 05/24/16 [History] Fluticasone Propionate Nasal [Flonase] 1 spray NS DAILY PRN 05/24/16 [History] Amlodipine [Norvasc] 10 mg PO DAILY #30 tablet 05/27/16 [Rx] Cyanocobalamin (B-12) [Vitamin B12] 1,000 mcg PO DAILY #30 tablet 05/27/16 [Rx] Ferrous Sulfate 325 mg PO BIDWM #60 tablet 05/27/16 [Rx] Folic Acid 5 mg PO DAILY #30 tablet 05/27/16 [Rx] Allergies clonazepam [From Klonopin] Adverse Reaction (Verified 05/21/16 16:48) Nausea Oxycodone Adverse Reaction (Verified 05/24/16 10:21) Nausea Oxymorphone [From Opana] Adverse Reaction (Verified 05/24/16 10:20) Nausea tiotropium [From Spiriva with HandiHaler] Adverse Reaction (Verified 07/23/16 16 :41) Itching All Systems: A 10-system review of systems was performed and is negative for pertinent findings except as documented above in the HPI. - Constitutional Constitutional: chills, fever(s), night sweats, no weight loss - EENT Nose, mouth and throat: no sinus pain, no sinus pressure, no throat swelling - Cardiovascular Cardiovascular: no chest pain, no diaphoresis, no dyspnea, no edema - Respiratory Respiratory: cough, dyspnea (Baseline), no hemoptysis, no wheezing, no chest congestion, no excessive phlegm production, no change in phlegm color - Gastrointestinal Gastrointestinal: abdominal pain (Lower), vomiting, no diarrhea, no nausea - Genitourinary Genitourinary: no hematuria, no urinary frequency, no urinary hesitancy, no urinary incontinence, no urinary urgency - Musculoskeletal Musculoskeletal: no weakness, no joint swelling, no stiffness - Neurological Neurological: no dizziness, no numbness, no tingling Physical Examination General appearance: no acute distress ENT: oropharynx moist Effort: normal Auscultation: bilateral: wheezes Cardiovascular: regular rate and rhythm Gastrointestinal: normoactive bowel sounds, soft, non-tender, non-distended Extremities: no cyanosis, no edema, no clubbing normal mental status, non-focal exam mood appropriate, affect normal Results - Laboratory Findings CBC and BMP: 07/25/16 04:25 07/25/16 04:25 Abnormal lab findings: Abnormal lab results RBC 3.35 M/mcL (4.19-5.50) L 07/25/16 04:25 Hgb 10.1 g/dL (12.9-16.9) L 07/25/16 04:25 Hct 31.1 % (37.5-50.1) L 07/25/16 04:25 Eosinophils # 1.6 K/mcL (0.0-0.6) H 07/25/16 04:25 Nucleated RBCs/100 WBC 0.2 /100 WBC (0) H 07/23/16 13:26 ESR 30 mm/hr (0-10) H 07/23/16 17:34 Iron 18 mcg/dL (65-175) L 07/23/16 17:34 % Saturation 6 % (20-55) L 07/23/16 17:34 Ammonia 9 mcmol/L (18-72) L 07/23/16 14:34 C-Reactive Protein 63 mg/L (Less than 5) H 07/23/16 17:34 Albumin 3.1 g/dL (3.5-5.0) L 07/23/16 13:26 Albumin/Globulin Ratio 0.9 (1.1-2.2) L 07/23/16 13:26 - Clinical Findings Intake & Output: Intake & Output 07/24/16 07/25/16 07/25/16 23:59 07:59 15:59 Intake Total 1670 / 1670 100 / 100 400 / 400 Output Total 500 / 500 1300 / 1300 Balance 1170 / 1170 -1200 / -1200 400 / 400 Weight 71.5 kg Consult Discharge Plan - Plan Referrals: Leonor Russo, OUTB[employer] SALES AGENT [Primary Care Provider] - 07/31/16 1:00 pm <Yesenia Osorio - Last Filed: 07/25/16 12:47> All Systems: A 10-system review of systems was performed and is negative for pertinent findings except as documented above in the HPI. Physical Examination Vital Signs: Vital Signs, Last 4 Hours Temp Pulse Resp BP Pulse Ox 07/25/16 11:22 98.0 F 92 18 135/74 92 L Results - Laboratory Findings CBC and BMP: 07/25/16 04:25 07/25/16 04:25 Abnormal lab findings: Abnormal lab results RBC 3.35 M/mcL (4.19-5.50) L 07/25/16 04:25 Hgb 10.1 g/dL (12.9-16.9) L 07/25/16 04:25 Hct 31.1 % (37.5-50.1) L 07/25/16 04:25 Eosinophils # 1.6 K/mcL (0.0-0.6) H 07/25/16 04:25 Nucleated RBCs/100 WBC 0.2 /100 WBC (0) H 07/23/16 13:26 ESR 30 mm/hr (0-10) H 07/23/16 17:34 Iron 18 mcg/dL (65-175) L 07/23/16 17:34 % Saturation 6 % (20-55) L 07/23/16 17:34 Ammonia 9 mcmol/L (18-72) L 07/23/16 14:34 C-Reactive Protein 63 mg/L (Less than 5) H 07/23/16 17:34 Albumin 3.1 g/dL (3.5-5.0) L 07/23/16 13:26 Albumin/Globulin Ratio 0.9 (1.1-2.2) L 07/23/16 13:26 - Clinical Findings Intake & Output: Intake & Output 07/24/16 07/25/16 07/25/16 23:59 07:59 15:59 Intake Total 1670 / 1670 100 / 100 400 / 400 Output Total 500 / 500 1300 / 1300 Balance 1170 / 1170 -1200 / -1200 400 / 400 Weight 71.5 kg - Attending Attestation I examined this patient and my medical decision-making was reviewed with the MANAGER MARKETING COMMUNICATIONS/PA/Advanced Practice Nurse/Resident Physician. I agree with the documented findings, disposition and treatment plan as described except to the extent set forth below. Patient seen and examined. Labs, radiology, chart personally reviewed. 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 Patient has expiratory wheezing on examination. Reviewed Ct chest result with patient and bronchoscopy recommended to evaluate for any infectious etiologies. I suspect AECOPD. I feel patient needs to follow up as outpatient and need PFT. Explained to patient all risks, alternatives, and benefits of the procedure and he understand and agreed to have it done.
--- NOTE | 2016-07-25 11:42 | Anesthesia Evaluation PreOp ---
Date of Encounter: 07/25/16 Time of Encounter: 11:39 - Past History Planned Operation: Bronchoscopy Cardiac History: HTN (maintained on Norvasc, Cozaar,), Hyperlipidemia ( maintained on Lovastatin) Pulmonary History: Former smoker, COPD (w/ associated black lung dz - maintained on Symbicort, DuoNeb, Singulair. Acute lower respiratory infection) , Other (HCAP - health care associated pneumonia) MANAGER INPATIENT History: Other (Anxiety/Depression maintained on Cymbalta. Chronic Pain maintained on Gabapentin) Other Medical History: Renal (LAURYN), Other (4/4 SIRS criteria [tachycardia, tachypnea, leukocytosis, intermittent fevers. Sepsis of unknown organism) Anesthesia History: No Prior Anesthetic Complications, Past Anesthesia (Hernia repair) Alcohol Use: none Drug use: none Medications and Allergies Duloxetine HCl [Cymbalta] 60 mg PO BID 05/07/16 [History] Gabapentin [Neurontin] 800 mg PO TID 05/07/16 [History] HYDROcodone/Acet 10/325 mg [[place] 10-325 mg] 1 tab PO QID PRN 05/07/16 [History] Losartan Potassium [Cozaar] 100 mg PO DAILY 05/07/16 [History] Lovastatin 40 mg PO DAILY 05/07/16 [History] Montelukast [Singulair] 10 mg PO HS 05/07/16 [History] Omeprazole [PriLOSEC] 40 mg PO BID 05/07/16 [History] Tizanidine HCl [Zanaflex] 4 mg PO Q8H PRN 05/07/16 [History] Ipratropium/Albuterol Neb [Duoneb] 3 ml IH Q6HR PRN #30 inhsol 05/09/16 [Rx] Aspirin 81 mg PO DAILY 05/24/16 [History] Budesonide/Formoterol 160/4.5 [Symbicort 160/4.5] 2 puff IH BIDR 05/24/16 [ History] Cholecalciferol (Vitamin D3) [Vitamin D3] 50,000 unit PO OTT 05/24/16 [History] Fluticasone Propionate Nasal [Flonase] 1 spray NS DAILY PRN 05/24/16 [History] Amlodipine [Norvasc] 10 mg PO DAILY #30 tablet 05/27/16 [Rx] Cyanocobalamin (B-12) [Vitamin B12] 1,000 mcg PO DAILY #30 tablet 05/27/16 [Rx] Ferrous Sulfate 325 mg PO BIDWM #60 tablet 05/27/16 [Rx] Folic Acid 5 mg PO DAILY #30 tablet 05/27/16 [Rx] Budesonide/Formoterol 160/4.5 [Symbicort 160/4.5] 2 puff IH BIDR 30 Days [Rx] Levofloxacin [Levaquin] 750 mg PO DAILY #1 tablet 07/28/16 [Rx] Montelukast [Singulair] 10 mg PO HS 30 Days 07/28/16 [Rx] PredniSONE 40 mg PO DAILY 1 Days 07/28/16 [Rx] Allergies clonazepam [From Klonopin] Adverse Reaction (Verified 05/21/16 16:48) Nausea Oxycodone Adverse Reaction (Verified 05/24/16 10:21) Nausea Oxymorphone [From Opana] Adverse Reaction (Verified 05/24/16 10:20) Nausea tiotropium [From Spiriva with HandiHaler] Adverse Reaction (Verified 07/23/16 16 :41) Itching - Meds/Allergy Pre-op Review Medications Reviewed: Yes Allergies Reviewed: Yes Beta Blockers on Current Med List: No Anesthesia Results - Labs 07/28/16 04:18 07/28/16 04:18 Laboratory Tests 05/27/16 07/23/16 07:15 17:34 POC Glucose 109 H Iron 18 L % Saturation 6 L Laboratory Results Impressions Chest X-Ray 07/23/16 12:54 IMPRESSION: No acute process. D/ 07/23/2016 13:19:30 Jonathan Dill MD / phylicia Interpreting Provider: Jonathan Dill MD Abdomen/Pelvis CT 07/24/16 15:00 IMPRESSION: No acute intra-abdominal abnormality identified. Cholelithiasis without evidence of acute cholecystitis. No bowel obstruction, excessive amount of stool, or ascites. Normal appendix. Small hiatal hernia. D/ / Fernando Roach MD / Fernando Roach MD Interpreting Provider: Fernando Roach MD Chest CT 07/24/16 15:00 IMPRESSION: Scattered small ground-glass opacities throughout the lungs worrisome for diffuse multifocal pneumonia predominantly within the base of the left lower lobe and posterior segment of the right upper lobe. These opacities were not present on the exam of 07/12/2016. No worrisome adenopathy identified in the chest. No finding worrisome for malignancy. D/ / Fernando Roach MD / Fernando Roach MD Interpreting Provider: Fernando Roach MD Soft Tissue Neck CT 07/24/16 15:00 IMPRESSION: No acute abnormality of the soft tissue structures of the neck. Small normal sized lymph nodes in each side of the neck. No evident adenopathy. Overall the lymph nodes appear smaller than on the prior study. No other significant change from the prior study. D/ / Fernando Roach MD / Fernando Roach MD Interpreting Provider: Fernando Roach MD Laboratory Tests 07/25/16 04:25 Est GFR (Non-Af Amer) > 60 - Imaging EKG: image reviewed (94bpm SR) Anesthesia Exam Vital Signs Temp Pulse Resp BP Pulse Ox 07/25/16 11:22 98.0 F 92 18 135/74 92 L 07/25/16 06:56 98.1 F 97 17 100/72 90 L 07/25/16 03:36 98.0 F 56 15 115/56 96 07/24/16 23:25 97.9 F 112 15 102/56 94 L 07/24/16 20:00 98.6 F 94 17 110/59 94 L 07/24/16 15:56 98.5 F 101 18 129/65 95 07/24/16 13:28 16 91 L Intake and Output 07/24/16 07/25/16 07/25/16 23:59 07:59 15:59 Intake Total 1670 / 1670 100 / 100 400 / 400 Output Total 500 / 500 1300 / 1300 Balance 1170 / 1170 -1200 / -1200 400 / 400 Intake: IV Fluids 1350 / 1350 100 / 100 0.9 % Sodium Chloride 1, 1000 / 1000 000 ML @ 100 mls/hr IVC . Q10H ANNA Rx#:[id number] Zosyn 3.375 GM In 100 / 100 100 / 100 Dextrose 5% (Minibag+) 100 ML 100 ML @ 25 mls/hr IVPB Q8HR ANNA Rx#: [id number] Vancocin 750 MG In 250 / 250 Dextrose 5% 250 ML @ 250 mls/hr IVPB Q24H ANNA Rx#: [id number] Oral 320 / 320 0 / 0 400 / 400 Output: Urine 500 / 500 1300 / 1300 Other: Meal Dinner Percent of Meal Consumed 100% Weight 71.5 kg Patient Weight 07/25/16 23:59 Weight 71.5 kg Height: 5'6" Weight: 157# NPO (# of Hours): MNOc - HEENT Pupil (Motor): Pupils equal, EOMI - MANAGER INPATIENT LOC: Oriented Anesthesia Assess/Plan ASA Score: 4 (SIRS/Sepsis, Black Lung Dz, COPD w/acute pneumonia, HTN, Chol, JHONY ) Modified Alyssa Scale for Level of Consciousness: Cooperative, oriented, and tranquil Anesthetic Plan: General Monitoring Plan: Standard Monitors Recovery Plan: PACU Anes Supervising Prov Stmt: Bronchoscopy rescheduled. Not performed with Anesthesia on this date.
[2016-07-25] MEDS: predniSONE 20 MG TABLET PO SCH (11:45)
[2016-07-25] MEDS ORDERED: methylPREDNISolone 125 MG/2 ML VIAL IVP ONE (13:51)
[2016-07-25] MEDS: 0.9 % Sodium Chloride 1,000 ML IVC SCH ×2 (14:00→14:52)
[2016-07-25] MEDS ORDERED: *HR* FentaNYL (PF) 100 MCG/2 ML VIAL IVP PRN (15:52)
[2016-07-25] MEDS ORDERED: Albuterol 2.5 MG/3 ML NEBULIZER IH ONE (15:52)
[2016-07-25] MEDS ORDERED: Lidocaine Viscous Oral Soln 15 ML SOLUTION MM ONE (15:52)
[2016-07-25] MEDS ORDERED: *HR* Midazolam HCl 5 MG/5 ML VIAL IVP PRN (15:52)
[2016-07-25] MEDS ORDERED: *HR* EPINEPHrine 1 MG/10 ML SYRINGE INTRATRACH PRN (15:52)
--- NOTE | 2016-07-25 15:52 | Pre-Sedation Evaluation ---
Pre-sedation evaluation - Pre-sedation checklist Date of procedure: 07/25/16 Procedure: bronchoscopy Recent Vitals: Last Vital Signs Temp 98.0 F 07/25/16 11:22 Pulse 92 07/25/16 11:22 Resp 18 07/25/16 11:22 BP 135/74 07/25/16 11:22 Pulse Ox 92 L 07/25/16 11:22 H&P (including ROS) documented in medical record: Yes Previous reaction to sedatives/anesthetics: No Dietary Status: No solid food in preceding 4 hrs and no liquid in preceding 2 hrs Dentition: No loose teeth or bridges Possible difficult airway: No ASA Classification *see protocol: CLASS II-Mild systemic disease Plan of Care: Pt appropriate candidate for procedure/moderate/conscious sedation , Risks/benefits of procedure/sedation discussed w/ patient/family
[2016-07-25] MEDS ORDERED: 0.9 % Sodium Chloride 1,000 ML IVC SCH (16:00)
--- NOTE | 2016-07-25 16:22 | Internal Med Progress Note ---
Date of Encounter: 07/25/16 Time of Encounter: 16:19 - Assessment and plan (1) Fever of unknown origin Current Visit: Yes Status: Acute Assessment and plan: Patient with subjective report of fever since the last couple of months. No fevers since admission. On broad spectrum antibiotics. The testing for influenza, Legionella, strep pneumo, multiple bilateral panel has been negative. Hepatitis profile also negative. We will continue with current antibiotic therapy, a consultation with pulmonology has been requested. Patient will undergo a bronchoscopy today. CT scan of the neck, chest, abdomen and pelvis was obtained. Reports noted, no source of infection is identified at this point. We will continue monitoring, continue with current management. Plan of care was discussed in detail with the patient. He expressed understanding. - Time Spent With Patient 25 - 35 minutes - Subjective Interval history: Patient denies fever, he feels better today. There is no documentation of fevers since admission. - Constitutional Vitals: Temp Pulse Resp BP Pulse Ox 98.2 F 79 18 167/85 92 L 07/25/16 15:53 07/25/16 15:53 07/25/16 15:53 07/25/16 15:53 07/25/16 15:53 General appearance: Present: cooperative, A&O X 3, no acute distress - Head Head exam: Present: atraumatic, normocephalic - Eye Eye exam: Present: PERRL, conjuntiva pink, sclera anicteric Pupils: Present: PERRL - Neck Neck exam general surgery: Present: supple, trachea midline. Absent: lymphadenopathy - Respiratory Respiratory exam: Present: decreased breath sounds. Absent: accessory muscle use, rales, rhonchi, wheezes - Cardiovascular Cardiovascular exam: Present: RRR, +S1, +S2. Absent: diastolic murmur, gallop, rubs, systolic murmur - GI/Abdominal GI/Abdominal exam: Present: normal bowel sounds, soft, no peritoneal signs. Absent: distended, tenderness - Extremities Exam Extremities exam: Present: warm, radial pulses palpable and symetrical. Absent : calf tenderness, cyanotic, pedal edema - Neurological Exam Neurological exam: Present: CN II-XII intact, oriented X3, no focal deficits. Absent: pronater drift, facial droop, speech deficit - Skin Skin exam: Present: dry, intact Internal Medicine: Result - Labs CBC & Chem 7: 01/04/17 04:25 07/25/16 04:25 Labs: Short CBC 07/25/16 Range/Units 04:25 WBC 7.5 (4.3-11.1) K/mcL Hgb 10.1 L (12.9-16.9) g/dL Hct 31.1 L (37.5-50.1) % Plt Count 239 (140-400) K/mcL Neutrophils # 3.5 (1.6-8.9) K/mcL BMP 07/25/16 04:25 Sodium 141 Potassium 4.0 Chloride 108 Carbon Dioxide 27 BUN 11 Creatinine 1.04 Glucose 92 Calcium 9.3 - VTE Documentation of Mechanical Device: Intermittent pneumatic compression device Consult Discharge Plan - Plan Referrals: Leonor Russo CNP [Primary Care Provider] - 07/31/16 1:00 pm
[2016-07-25] MEDS ORDERED: 0.9 % Sodium Chloride 500 ML IVC SCH (16:30)
[2016-07-25] MEDS ORDERED: *HR* Midazolam HCl 5 MG/5 ML VIAL IVP ONE (16:32)
[2016-07-25] MEDS ORDERED: *HR* FentaNYL (PF) 100 MCG/2 ML VIAL ONE (16:33)
[2016-07-25] MEDS ORDERED: Lidocaine Viscous Oral Soln 15 ML SOLUTION ONE (16:33)
[2016-07-25] MEDS ORDERED: Albuterol 2.5 MG/3 ML NEBULIZER ONE (16:48)
[2016-07-25] MEDS: Vancomycin 750 MG in D5% in Water 250 ML IVPB SCH (19:20)
[2016-07-25] MEDS: Levofloxacin 750 MG/150 ML 750 MG/150 ML BAG IVPB SCH (20:54)
[2016-07-25] MEDS: tiZANidine 4 MG TABLET PO PRN (20:55)
[2016-07-25 21:36] LABS: Appearance of Body Fluid Cloudy (Clear); Volume of Body Fluid 20 mL
[2016-07-26] MEDS: Piperacillin/Tazobactam 3.375 GM in D5% in Water (Mini-Bag+) 100 ML IVPB SCH ×4 (00:34→23:59)
[2016-07-26 05:08] LABS: Basophils % 0.2 %; Hematocrit 30.5 % (37.5-50.1); Hemoglobin 9.9 g/dL (12.9-16.9); Immature Granulocytes % 0.9 % (0-4); Lymphocytes # 0.9 K/mcL (0.6-4.6); Mean Corpuscular HGB Conc 32.5 g/dL (31.6-35.5); Mean Corpuscular Volume 92.4 fL (83.0-100.0); Mean Platelet Volume 9.5 fL (9.4-12.4); Monocytes # 0.1 K/mcL (0.0-1.3); Monocytes % 1.9 %; Neutrophils # 4.3 K/mcL (1.6-8.9); Platelet Count 253 K/mcL (140-400); Red Cell Distribution Width 13.3 % (11.5-14.5)
[2016-07-26 05:26] LABS: BUN/Creatinine Ratio 11 (6-26); Blood Urea Nitrogen 11 mg/dL (8-26); Calcium 9.1 mg/dL (8.6-10.8); Carbon Dioxide 24 mEq/L (19-29); Chloride 107 mEq/L (98-109); Glucose 157 mg/dL (70-99); Magnesium 1.5 mg/dL (1.6-2.6); Osmolality,Calculated 291 (280-300); Potassium 4.1 mEq/L (3.5-4.5); Sodium 139 mEq/L (136-145); eGFR For African Americans > 60 (> 60); eGFR For Non-African Americans > 60 (> 60)
[2016-07-26] MEDS: Vancomycin 750 MG in D5% in Water 250 ML IVPB SCH ×2 (06:11→17:20)
[2016-07-26] MEDS ORDERED: Magnesium Sulfate 2 GM in D5% in Water 100 ML IVPB ONE (08:34)
[2016-07-26] MEDS: amLODIPine 5 MG TABLET PO SCH (09:00)
[2016-07-26] MEDS: predniSONE 20 MG TABLET PO SCH (09:00)
[2016-07-26] MEDS: Aspirin 81 MG TAB.CHEW PO SCH (09:00)
[2016-07-26] MEDS: Gabapentin 400 MG CAPSULE PO SCH ×3 (09:00→20:19)
[2016-07-26] MEDS: Budesonide/Formoterol 160/4.5 MDI IH SCH ×2 (09:38→20:00)
[2016-07-26] MEDS: Ipratropium/Albuterol Neb 3 ML IH PRN (13:27)
--- NOTE | 2016-07-26 15:39 | Gastroenterology Consult Note ---
<Ruben Watson Candido - Last Filed: 07/26/16 15:37> Date of Encounter: 07/26/16 Time of Encounter: 11:05 - Assessment and plan (1) ELIZABETH (iron deficiency anemia) Current Visit: Yes Status: Acute Assessment and plan: Hgb 9.9, iron 18, and ferritin 94. FOBT positive 07/25/16. pt reports negative EGD and colonoscopy with a polyp and hemorrhoids that were completed 1 year ago. Will complete EGD today and colonoscopy tomorrow. Clear liquid diet today, no red or purple. NPO at midnight. If unable tolerate NuLytely please use MiraLAX prep. If not clear by 6 AM, give 2 tap water enemas. Qualifiers: Iron deficiency anemia type: chronic blood loss Qualified Code(s): D50.0 - Iron deficiency anemia secondary to blood loss (chronic) (2) Fever of unknown origin Current Visit: Yes Status: Acute - Time Spent With Patient Total time spent is greater than 50% in coordination of care (as documented) at patient's floor/unit and/or counseling patient: GI History of Present Illness - Data of Consult Patient: new to practice Consult date: 07/26/16 Requesting Physician: Kael Ross - Consult Narrative Reason for consult: ELIZABETH History of present illness: Mr. Sweet is a 71 year old male with PMHx of COPD, HLD, HTN, and black lung disease who presented with fevers and AMS. Prior to admission, he had one episode of vomiting with black emesis. He reports his fever has been ongoing for several months, without a clear cause. He has had two recent admissions for PNA and treated with antibiotics. After off antibiotics, his fevers return. The pt was also noted to be anemic dating back to May 2016. Hgb on admission was 10.4 and this AM 9.9. Iron level low at 18 but ferritin WNL at 94. FOBT positive on 07/25/16. Procedures: None NSAIDs: ASA Anticoagulation: None Past Med Surg Social Fam HX - Past Medical History Medical history: COPD, hyperlipidemia, hypertension, other Psychiatric history: no psych history - Past Surgical History Surgical History: herniorrhaphy - Social History Smoking Status: Former smoker Smokeless Tobacco Status: No Alcohol use: none Drug use: none - Family History Mother Living Status: Hx Family Cardiac Disorders: Yes (HTN) Father Living Status: Hx Family Cardiac Disorders: Yes (HTN) - Gastrointestinal Gastrointestinal: Present: as per HPI - Constitutional Constitutional: as per HPI - EENT Eyes: as per HPI Ears: Present: as per HPI Nose, mouth and throat: Present: as per HPI - Cardiovascular Cardiovascular ROS: Present: as per HPI - Respiratory Respiratory IM: Present: as per HPI - Genitourinary Genitourinary: Absent: change in color, Urinary frequency - Neurological ROS Neurological GI: Present: as per HPI - Hematologic/Lymphatic Hematologic/Lymphatic pediatric: Present: as per HPI - Musculoskeletal Musculoskeletal ROS GI: Present: as per HPI - Integumentary Integumentary GI: Present: as per HPI - Psychiatric ROS Psychiatric GI: Present: as per HPI - Endocrine Endocrine IM: Present: as per HPI - Constitutional Vitals: Temp Pulse Resp BP Pulse Ox 97.8 F 113 18 136/71 93 L 07/26/16 15:29 07/26/16 15:29 07/26/16 15:29 07/26/16 15:29 07/26/16 15:29 General appearance: Present: cooperative, A&O X 3, no acute distress, answers questions appropriately - Head Head exam: Present: atraumatic, normocephalic - Eye Eye exam: Present: normal appearance, sclera anicteric - ENT ENT exam: Present: mucous membranes moist - Neck Neck exam general surgery: Present: normal inspection, trachea midline - Respiratory Respiratory exam: Present: decreased breath sounds, CTAB. Absent: rales, rhonchi - Cardiovascular Cardiovascular exam: Present: RRR, +S1, +S2 - GI/Abdominal GI/Abdominal exam: Present: soft, no peritoneal signs. Absent: distended, firm , guarding, tenderness - Rectal Rectal exam: Present: deferred - Extremities Exam Extremities exam: Present: warm - Neurological Exam Neurological exam: Present: no focal deficits - Psychiatric Psychiatric exam: Present: normal affect, normal mood - Skin Skin exam: Present: dry, intact, normal color, warm Results - Labs CBC & Chem 7: 07/26/16 04:39 07/26/16 04:39 Labs: Last Result ESR 30 mm/hr (0-10) H 07/23/16 17:34 Calcium 9.1 mg/dL (8.6-10.8) 07/26/16 04:39 Iron 18 mcg/dL (65-175) L 07/23/16 17:34 % Saturation 6 % (20-55) L 07/23/16 17:34 Transferrin 222 mg/dL (174-364) 07/23/16 17:34 Ferritin 94 ng/ml (22-275) 07/23/16 17:34 Troponin I 0.01 ng/mL (0-0.03) 07/23/16 13:26 C-Reactive Protein 63 mg/L (Less than 5) H 07/23/16 17:34 Stool Occult Blood Positive (Negative) A 07/25/16 11:30 Entire Visit Hgb 9.9 g/dL (12.9-16.9) L 07/26/16 04:39 Hct 30.5 % (37.5-50.1) L 07/26/16 04:39 Ferritin 94 ng/ml (22-275) 07/23/16 17:34 Total Bilirubin 0.5 mg/dL (0.2-1.2) 07/23/16 13:26 AST 23 Units/L (5-34) 07/23/16 13:26 ALT 19 Units/L (0-55) 07/23/16 13:26 Ammonia 9 mcmol/L (18-72) L 07/23/16 14:34 Consult Discharge Plan - Plan Referrals: Leonor Russo, MEDICAL ORDERLY [Primary Care Provider] - 07/31/16 1:00 pm <Jimbo Lal - Last Filed: 07/26/16 17:35> Time of Encounter: 17:00 - Time Spent With Patient Total time spent is greater than 50% in coordination of care (as documented) at patient's floor/unit and/or counseling patient: GI History of Present Illness - Data of Consult Requesting Physician: Kael Ross - Consult Narrative History of present illness: Mr. Sweet is a 71 year old male - Constitutional Vitals: Temp Pulse Resp BP Pulse Ox 97.8 F 113 18 136/71 93 L 07/26/16 15:29 07/26/16 15:29 07/26/16 15:29 07/26/16 15:29 07/26/16 15:29 Results - Labs CBC & Chem 7: 07/26/16 04:39 07/26/16 04:39 Labs: Last Result ESR 30 mm/hr (0-10) H 07/23/16 17:34 Calcium 9.1 mg/dL (8.6-10.8) 07/26/16 04:39 Iron 18 mcg/dL (65-175) L 07/23/16 17:34 % Saturation 6 % (20-55) L 07/23/16 17:34 Transferrin 222 mg/dL (174-364) 07/23/16 17:34 Ferritin 94 ng/ml (22-275) 07/23/16 17:34 Troponin I 0.01 ng/mL (0-0.03) 07/23/16 13:26 C-Reactive Protein 63 mg/L (Less than 5) H 07/23/16 17:34 Stool Occult Blood Positive (Negative) A 07/25/16 11:30 Entire Visit Hgb 9.9 g/dL (12.9-16.9) L 07/26/16 04:39 Hct 30.5 % (37.5-50.1) L 07/26/16 04:39 Ferritin 94 ng/ml (22-275) 07/23/16 17:34 Total Bilirubin 0.5 mg/dL (0.2-1.2) 07/23/16 13:26 AST 23 Units/L (5-34) 07/23/16 13:26 ALT 19 Units/L (0-55) 07/23/16 13:26 Ammonia 9 mcmol/L (18-72) L 07/23/16 14:34 - Attending Attestation I examined this patient and my medical decision-making was reviewed with the TRANSACTION PROCESSOR/PA/Advanced Practice Nurse/Resident Physician. I agree with the documented findings, disposition and treatment plan as described except to the extent set forth below. Patient with anemia and right upper quadrant pain. EGD and colonoscopy to rule out causes for anemia and for abdominal pain. If scopes negative then he will need ultrasound the gallbladder for his abdominal pain to rule out gallbladder etiology
[2016-07-26] MEDS: *HR* HYDROcodone/Acet 10/325 mg TABLET PO PRN (15:40)
[2016-07-26] MEDS: Levofloxacin 750 MG/150 ML 750 MG/150 ML BAG IVPB SCH (15:41)
--- NOTE | 2016-07-26 15:46 | Internal Med Progress Note ---
Date of Encounter: 07/26/16 Time of Encounter: 09:00 - Assessment and plan (1) Fever of unknown origin Current Visit: Yes Status: Acute Assessment and plan: Patient with subjective report of fever since the last couple of months. No fevers since admission. On broad spectrum antibiotics. The testing for influenza, Legionella, strep pneumo, multiple bilateral panel has been negative. Hepatitis profile also negative. We will continue with current antibiotic therapy, a consultation with pulmonology was requested. Patient had bronchoscopy yesterday, report noted. CT scan of the neck, chest, abdomen and pelvis was obtained. Reports noted, no source of infection is identified at this point. We will continue monitoring, continue with current management. Workup for autoimmune conditions requested. Negative RF. ANCA and NASEEM pending. Plan of care was discussed in detail with the patient. He expressed understanding. Iron def anemia, GI consulted. Will do both egd and colonoscopy tomorrow. - Time Spent With Patient 25 - 35 minutes - Subjective Interval history: Patient denies fever, he feels better today. There is no documentation of fevers since admission. - Constitutional Vitals: Temp Pulse Resp BP Pulse Ox 97.8 F 113 18 136/71 93 L 07/26/16 15:29 07/26/16 15:29 07/26/16 15:29 07/26/16 15:29 07/26/16 15:29 General appearance: Present: cooperative, A&O X 3, no acute distress - Head Head exam: Present: atraumatic, normocephalic - Eye Eye exam: Present: PERRL, conjuntiva pink, sclera anicteric Pupils: Present: PERRL - Neck Neck exam general surgery: Present: supple, trachea midline. Absent: lymphadenopathy - Respiratory Respiratory exam: Present: decreased breath sounds. Absent: accessory muscle use, rales, rhonchi, wheezes - Cardiovascular Cardiovascular exam: Present: RRR, +S1, +S2. Absent: diastolic murmur, gallop, rubs, systolic murmur - GI/Abdominal GI/Abdominal exam: Present: normal bowel sounds, soft, no peritoneal signs. Absent: distended, tenderness - Extremities Exam Extremities exam: Present: warm, radial pulses palpable and symetrical. Absent : calf tenderness, cyanotic, pedal edema - Neurological Exam Neurological exam: Present: CN II-XII intact, oriented X3, no focal deficits. Absent: pronater drift, facial droop, speech deficit - Skin Skin exam: Present: dry, intact Internal Medicine: Result - Labs CBC & Chem 7: 07/26/16 04:39 07/26/16 04:39 Labs: Short CBC 07/26/16 Range/Units 04:39 WBC 5.3 (4.3-11.1) K/mcL Hgb 9.9 L (12.9-16.9) g/dL Hct 30.5 L (37.5-50.1) % Plt Count 253 (140-400) K/mcL Neutrophils # 4.3 (1.6-8.9) K/mcL BMP 07/26/16 04:39 Sodium 139 Potassium 4.1 Chloride 107 Carbon Dioxide 24 BUN 11 Creatinine 1.02 Glucose 157 H Calcium 9.1 - VTE Documentation of Mechanical Device: Intermittent pneumatic compression device Consult Discharge Plan - Plan Referrals: Leonor Russo CNP [Primary Care Provider] - 07/31/16 1:00 pm
[2016-07-26] MEDS ORDERED: SODIUM CHLORIDE/NAHCO3/KCL/PEG 4,000 ML SOLN.RECON PO ONE (17:00)
[2016-07-27 05:18] LABS: Basophils % 0.1 %; Eosinophils % 0.1 %; Hematocrit 27.6 % (37.5-50.1); Immature Granulocytes % 0.8 % (0-4); Lymphocytes # 1.5 K/mcL (0.6-4.6); Lymphocytes % 14.6 %; Mean Corpuscular HGB Conc 32.6 g/dL (31.6-35.5); Mean Corpuscular Hemoglobin 30.3 pg (28.0-33.3); Mean Corpuscular Volume 92.9 fL (83.0-100.0); Monocytes # 0.7 K/mcL (0.0-1.3); Monocytes % 6.6 %; Neutrophils # 8.1 K/mcL (1.6-8.9); Platelet Count 275 K/mcL (140-400); Red Blood Count 2.97 M/mcL (4.19-5.50); Red Cell Distribution Width 13.9 % (11.5-14.5); Segmented Neutrophils % 77.8 %
[2016-07-27 05:35] LABS: BUN/Creatinine Ratio 14 (6-26); Blood Urea Nitrogen 15 mg/dL (8-26); Calcium 8.6 mg/dL (8.6-10.8); Carbon Dioxide 26 mEq/L (19-29); Chloride 109 mEq/L (98-109); Glucose 109 mg/dL (70-99); Osmolality,Calculated 295 (280-300); Potassium 3.9 mEq/L (3.5-4.5); Sodium 142 mEq/L (136-145); eGFR For African Americans > 60 (> 60); eGFR For Non-African Americans > 60 (> 60)
[2016-07-27 05:47] LABS: C-Reactive Protein 18 mg/L (Less than 5)
[2016-07-27] MEDS: Vancomycin 750 MG in D5% in Water 250 ML IVPB SCH (06:17)
[2016-07-27] MEDS: amLODIPine 5 MG TABLET PO SCH (07:51)
[2016-07-27] MEDS: Gabapentin 400 MG CAPSULE PO SCH ×3 (07:51→20:37)
[2016-07-27] MEDS: Aspirin 81 MG TAB.CHEW PO SCH (07:51)
[2016-07-27] MEDS: predniSONE 20 MG TABLET PO SCH (07:51)
[2016-07-27] MEDS: Budesonide/Formoterol 160/4.5 MDI IH SCH ×2 (08:06→19:31)
[2016-07-27] MEDS ORDERED: Lidocaine -MPF 2% 2 ML VIAL ONE (08:55)
[2016-07-27] MEDS ORDERED: *HR* Propofol 200 MG/20 ML VIAL IVP ONE (08:55)
--- NOTE | 2016-07-27 09:53 | Anesthesia Evaluation PreOp ---
Date of Encounter: 07/27/16 Time of Encounter: 09:51 - Past History Planned Operation: EGD/Colonoscopy Cardiac History: HTN (maintained on NOrvasc & Cozaar,), Hyperlipidemia ( maintained on Lovastatin) Pulmonary History: Former smoker, COPD (w/ associated black lung dz - maintained on Symbicort, DuoNeb, Singulair. 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 Chronic pain maintained on Gabapentin) Other Medical History: Renal (LAURYN), Other (4/4 SIRS criteria this admission [ tacycardia, tachypnea, leukocytosis, intermittent fevers. Sepsis of unknown origin]) Anesthesia History: No Prior Anesthetic Complications, Past Anesthesia (Hernia repair, Ankle surgery, EGD/Colonoscopy) Alcohol Use: none Drug use: none Medications and Allergies Duloxetine HCl [Cymbalta] 60 mg PO BID 05/07/16 [History] Gabapentin [Neurontin] 800 mg PO TID 05/07/16 [History] HYDROcodone/Acet 10/325 mg [[place] 10-325 mg] 1 tab PO QID PRN 05/07/16 [History] Losartan Potassium [Cozaar] 100 mg PO DAILY 05/07/16 [History] Lovastatin 40 mg PO DAILY 05/07/16 [History] Montelukast [Singulair] 10 mg PO HS 05/07/16 [History] Omeprazole [PriLOSEC] 40 mg PO BID 05/07/16 [History] Tizanidine HCl [Zanaflex] 4 mg PO Q8H PRN 05/07/16 [History] Ipratropium/Albuterol Neb [Duoneb] 3 ml IH Q6HR PRN #30 inhsol 05/09/16 [Rx] Aspirin 81 mg PO DAILY 05/24/16 [History] Budesonide/Formoterol 160/4.5 [Symbicort 160/4.5] 2 puff IH BIDR 05/24/16 [ History] Cholecalciferol (Vitamin D3) [Vitamin D3] 50,000 unit PO OTT 05/24/16 [History] Fluticasone Propionate Nasal [Flonase] 1 spray NS DAILY PRN 05/24/16 [History] Amlodipine [Norvasc] 10 mg PO DAILY #30 tablet 05/27/16 [Rx] Cyanocobalamin (B-12) [Vitamin B12] 1,000 mcg PO DAILY #30 tablet 05/27/16 [Rx] Ferrous Sulfate 325 mg PO BIDWM #60 tablet 05/27/16 [Rx] Folic Acid 5 mg PO DAILY #30 tablet 05/27/16 [Rx] Allergies clonazepam [From Klonopin] Adverse Reaction (Verified 05/21/16 16:48) Nausea Oxycodone Adverse Reaction (Verified 05/24/16 10:21) Nausea Oxymorphone [From Opana] Adverse Reaction (Verified 05/24/16 10:20) Nausea tiotropium [From Spiriva with HandiHaler] Adverse Reaction (Verified 07/23/16 16 :41) Itching - Meds/Allergy Pre-op Review Medications Reviewed: Yes Allergies Reviewed: Yes Beta Blockers on Current Med List: No Anesthesia Results - Labs 07/27/16 04:59 07/27/16 04:59 Laboratory Results Impressions Chest X-Ray 07/23/16 12:54 IMPRESSION: No acute process. D/ / 07/23/2016 13:19:30 Jonathan Dill MD / yer Interpreting Provider: Jonathan Dill MD Abdomen/Pelvis CT 07/24/16 15:00 IMPRESSION: No acute intra-abdominal abnormality identified. Cholelithiasis without evidence of acute cholecystitis. No bowel obstruction, excessive amount of stool, or ascites. Normal appendix. Small hiatal hernia. D/ / Fernando Roach MD / Fernando Roach MD Interpreting Provider: Fernando Roach MD Chest CT 07/24/16 15:00 IMPRESSION: Scattered small ground-glass opacities throughout the lungs worrisome for diffuse multifocal pneumonia predominantly within the base of the left lower lobe and posterior segment of the right upper lobe. These opacities were not present on the exam of 07/12/2016. No worrisome adenopathy identified in the chest. No finding worrisome for malignancy. D/ / Fernando Roach MD / Fernando Roach MD Interpreting Provider: Fernando Roach MD Soft Tissue Neck CT 07/24/16 15:00 IMPRESSION: No acute abnormality of the soft tissue structures of the neck. Small normal sized lymph nodes in each side of the neck. No evident adenopathy. Overall the lymph nodes appear smaller than on the prior study. No other significant change from the prior study. D/ / Fernando Roach MD / Fernando Roach MD Interpreting Provider: Fernando Roach MD Anesthesia Exam Vital Signs Temp Pulse Resp BP Pulse Ox 07/27/16 08:06 18 97 07/27/16 06:50 97.9 F 85 16 115/61 95 07/27/16 04:14 98.0 F 87 16 112/63 93 L 07/26/16 23:42 97.4 F L 102 18 138/72 93 L 07/26/16 20:30 95 07/26/16 20:02 18 95 07/26/16 19:39 97.9 F 104 20 122/76 93 L 07/26/16 15:29 97.8 F 113 18 136/71 93 L 07/26/16 13:27 24 95 07/26/16 11:17 98.3 F 108 16 148/68 95 07/26/16 11:14 98.0 F 108 17 149/77 95 Intake and Output 07/26/16 07/27/16 07/27/16 23:59 07:59 15:59 Intake Total 620 / 620 350 / 350 Balance 620 / 620 350 / 350 Intake: IV Fluids 500 / 500 350 / 350 Levaquin 750mg/150 mL 750 150 / 150 mg In 150 ml @ 100 mls/ hr IVPB Q24H ANNA Rx#: [id number] Zosyn 3.375 GM In 100 / 100 100 / 100 Dextrose 5% (Minibag+) 100 ML 100 ML @ 25 mls/hr IVPB Q8HR ANNA Rx#: [id number] Vancocin 750 MG In 250 / 250 250 / 250 Dextrose 5% 250 ML @ 250 mls/hr IVPB Q12H ANNA Rx#: [id number] Oral 120 / 120 Other: Meal NPO for breakfast Weight 70.579 kg Patient Weight 07/27/16 23:59 Weight 70.579 kg Height: 5'6" Weight: 157# BMI = 25 NPO (# of Hours): MNoc - HEENT Pupil (Motor): Pupils equal, EOMI Mallampati: II Teeth: Edentulous Oral Opening: Greater than 3 - 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: Oriented 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 Motor: Normal RUE, Normal LUE, Normal RLE, Normal LLE, Normal Face 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 Sensory: Normal: RUE, LUE, RLE, LLE, Face - Cardiac Rhythm: Regular Murmur: None - Pulmonary Breath Sounds: bilateral Clear Respiratory Effort: Symmetrical Anesthesia Assess/Plan ASA Score: 4 (Sepsis, COPD, HTN, Chol, Black lung dz) Modified Alyssa Scale for Level of Consciousness: Cooperative, oriented, and tranquil Anesthetic Plan: MAC Monitoring Plan: Standard Monitors Recovery Plan: PACU Anes Supervising Prov Stmt: Pt seen/evaluated, R&B Discussed, questions answered and consent obtained. Ayesha Ny MD
[2016-07-27] MEDS: Piperacillin/Tazobactam 3.375 GM in D5% in Water (Mini-Bag+) 100 ML IVPB SCH ×2 (11:30→15:21)
--- NOTE | 2016-07-27 13:50 | Internal Med Progress Note ---
<Benito Basilio - Last Filed: 07/27/16 13:48> Date of Encounter: 07/27/16 Time of Encounter: 08:25 - Assessment and plan (1) Intermittent fever of unknown origin Current Visit: Yes Status: Acute Assessment and plan: Patient with subjective report of fever for the last couple of months. No fevers since admission. On broad spectrum antibiotics. The testing for influenza, Legionella, strep pneumo, multiple bilateral panel has been negative. Hepatitis profile also negative. We will continue with current antibiotic therapy, a consultation with pulmonology was requested. Patient had bronchoscopy 07/25/16, report noted. CT scan of the neck, chest, abdomen and pelvis was obtained. Reports noted, no source of infection is identified at this point. We will continue monitoring, continue with current management. Workup for autoimmune conditions requested. Negative RF. ANCA and NASEEM pending Plan of care was discussed in detail with the patient. He expressed understanding Iron def anemia, GI consulted, both egd and colonoscopy performed today Transfuse as necessary We will consult rheumatology, but she recommendations for continuing management/ care Continue Levaquin and Zosyn Breathing treatments as needed (2) Anemia Current Visit: No Status: Chronic Assessment and plan: Hgb 9.0 today (9.9 yesterday), 9.9 two months ago Patient underwent EGD and colonoscopy today, no signs of active bleeding was seen Transfuse as needed Continue to monitor Qualifiers: Anemia type: folate deficiency Folate deficiency anemia type: dietary Qualified Code(s): 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 (3) LAURYN (acute kidney injury) Current Visit: No Status: Resolved Assessment and plan: Patient LAURYN resolved on 07/24/16 with rehydration We will continue monitor Avoid potential nephrotoxic agents (4) History of chronic obstructive pulmonary disease Current Visit: No Status: Chronic Assessment and plan: Treating with prospector antibiotics Duo nebs as needed Oral prednisone 40 mg by mouth daily (5) DVT prophylaxis Current Visit: No Status: Acute Assessment and plan: EPCDs for DVT prophylaxis now - Subjective Interval history: Patient reports feeling tired today, stemming from all night continually going to the bathroom with his colon prep for colonoscopy today. He denies other complaints at the moment. He denies shortness of breath, denies chest pain, denies fever/chills. - Constitutional Vitals: Temp Pulse Resp BP Pulse Ox 97.8 F 82 16 123/69 94 L 07/27/16 11:34 07/27/16 11:34 07/27/16 11:34 07/27/16 11:34 07/27/16 11:34 General appearance: Present: cooperative, A&O X 3, pleasant, no acute distress, answers questions appropriately - Head Head exam: Present: atraumatic, normocephalic - Eye Eye exam: Present: conjuntiva pink, sclera anicteric - Neck Neck exam general surgery: Present: supple, trachea midline - Respiratory Respiratory exam: Present: CTAB. Absent: accessory muscle use, rales, rhonchi, wheezes - Cardiovascular Cardiovascular exam: Present: RRR, +S1, +S2. Absent: diastolic murmur, gallop, rubs, systolic murmur - GI/Abdominal GI/Abdominal exam: Present: normal bowel sounds, soft, no peritoneal signs. Absent: distended, tenderness - Extremities Exam Extremities exam: Present: warm, radial pulses palpable and symetrical. Absent : calf tenderness, cyanotic, pedal edema - Neurological Exam Neurological exam: Present: alert, oriented X3, no focal deficits. Absent: facial droop, speech deficit - Skin Skin exam: Present: dry, intact Internal Medicine: Result - Labs CBC & Chem 7: 07/27/16 04:59 07/27/16 04:59 Labs: Short CBC 07/27/16 Range/Units 04:59 WBC 10.4 D (4.3-11.1) K/mcL Hgb 9.0 L (12.9-16.9) g/dL Hct 27.6 L (37.5-50.1) % Plt Count 275 (140-400) K/mcL Neutrophils # 8.1 (1.6-8.9) K/mcL BMP 07/27/16 04:59 Sodium 142 Potassium 3.9 Chloride 109 Carbon Dioxide 26 BUN 15 Creatinine 1.09 Glucose 109 H Calcium 8.6 - VTE Documentation of Mechanical Device: Intermittent pneumatic compression device Consult Discharge Plan - Plan Referrals: Leonor Russo CNP [Primary Care Provider] - 07/31/16 1:00 pm <Kael Ross - Last Filed: 07/27/16 18:39> - Assessment and plan (1) Fever of unknown origin Current Visit: Yes Status: Acute - Constitutional Vitals: Temp Pulse Resp BP Pulse Ox 97.5 F L 87 15 107/72 93 L 07/27/16 15:15 07/27/16 15:15 07/27/16 15:15 07/27/16 15:15 07/27/16 15:15 Internal Medicine: Result - Labs CBC & Chem 7: 07/27/16 04:59 07/27/16 04:59 Labs: Short CBC 07/27/16 Range/Units 04:59 WBC 10.4 D (4.3-11.1) K/mcL Hgb 9.0 L (12.9-16.9) g/dL Hct 27.6 L (37.5-50.1) % Plt Count 275 (140-400) K/mcL Neutrophils # 8.1 (1.6-8.9) K/mcL BMP 07/27/16 04:59 Sodium 142 Potassium 3.9 Chloride 109 Carbon Dioxide 26 BUN 15 Creatinine 1.09 Glucose 109 H Calcium 8.6 - Attending Attestation I examined this patient and my medical decision-making was reviewed with the FOOD ASSEMBLER/PA/Advanced Practice Nurse/Resident Physician. I agree with the documented findings, disposition and treatment plan as described except to the extent set forth below. Afebrile since admission, follow cultures. possible d/c tomorrow. appreciate rheum input.
--- NOTE | 2016-07-27 17:03 | Rheumatology Consult Note ---
Date of Encounter: 07/27/16 Time of Encounter: 16:00 Rheumatology Assess and Plan (1) Interstitial lung disease Current Visit: Yes Status: Acute This patient has recurrent pneumonias with no identified infectious source at this time. Infectious workup is pending. Given recurrence of symptoms and ground glass opacities will consider autoimmune workup. - His review of systems is not overall too suggestive of an inflammatory autoimmune disease but pulmonary manifestations could be an initial presentation. - ANCAs and NASEEM pending - Will add CK, Cristina-1, SSA and CCP in the workup - Currently he seems to be improved and will continue to follow. - If he is discharged over the weekend, I can follow-up results and see him as follow-up in clinic. (2) History of fever Current Visit: Yes Status: Acute Fever at this time has resolved with antibiotics. No infectious source. Previous suspected infectious sources noted in Right TMJ and tonsillar region on MRI to which he has followed with ENT. - Agree with antibiotics at this time. - Infectious workup still pending. Possibility of autoimmune disease. Rheumatology HPI Consult date: 07/27/16 Requesting physician: Benito Basilio Consult reason: Fevers, abnormal ct of chest Chief complaint: Fevers History of present illness: Mr. Swete is a 71 year old male with a PMH of COPD, HTN and recurrent pneumonia who presents to [facility] on fevers. This patient reports that he has been hospitalized twice for recurrent pneumonias, he reports. 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 He states that with each hospitalization, he is placed on antibiotics and he then starts to feel better. He reports having a cough chronically and is always mildly short of breath and his symptoms have no necessarily worsened. He also had an ER visit on 05/[address] showed an effusion in the right TMJ with erosions. He thought to have tonsillitis and less likely septic joint. He was given antibiotics and followed up with ENT. He was admitted again for shortness of breath and presumed pneumonia on 05/24/16. He reports at home, having fevers, worsening cough and worsening shortness of breath. Upon coming to the ED, he was afebrile, but CT scan showed scattered ground glass opacities. Workup showed elevated inflammatory markers, Anemia. Initial elevated creatinine that corrected and a nromal UA. Bronchoscopy showed a mucous plug, blood-tinged and couly return on fluid. Cultures unremarkable at this point. The patient states that he denies a history of frequent sinus infections, otitis media, nasal bleeding/crusting, oral ulcerations, dry eyes, dry mouth, swollen glands. Recently with TMJ pain and tonsillitis though. He states he had hematuria in the past but attributed this to prostatitis. No history of muscle weakness, no triphasic color changes to his fingers, no rashes, no history of blood clot. No swelling of joints. He reports feeling well at this time. Autoimmune Labs RF negative Infectious Labs Bronch - AFB negative, Cultures (normal nichol) 07/23/16 - Blood cultures negative x 2 08/07 - HIV and Acute hepatitis Panel Negative 08/07 - Viral panel negative for influenza, PCR for chlamydia and mycoplasma neg Other Labs 07/27/16 CBC - Hb 9 BMP - Cr WNL (1.75 no 07/23/16) ESR 37 CRP 18 (63 on 07/23/16) 07/23/16 UA WNL Radiology 07/24/16 - CT Chest - Scattered small ground-glass opacities throughout the lungs worrisome for diffuse m 07/24/16 - CT Abd/pelvis - Reviewed. 07/12/16 - CT Chest - Residual airspace in the RUL with bronchiectasis. Left lower lobe infiltrate resolved. 05/06 - CT Neck - Small erosions on the right mandibular condyle with associated effusion. Asymmetric right palatine tonsil. Mild 05/06 - CT Chest - Focal airspace consolidation in left lower lobe, nodule appacities in right upper lung. 05/06 - Ct Abd/Pelvis - cholelithiasis 05/06 CT Head - No sinus abnormalities. Small vessed chronic changes. 05/06 - CT Hip right - Degenerative change of the hip, lumbar spine and SI joints. Past Med Surg Social Fam HX - Past Medical History Medical history: COPD, hyperlipidemia, hypertension, other Psychiatric history: no psych history - Past Surgical History Surgical History: herniorrhaphy - Social History Smoking Status: Former smoker Smokeless Tobacco Status: No Alcohol use: none Drug use: none - Family History Mother Living Status: Hx Family Cardiac Disorders: Yes (HTN) Father Living Status: Hx Family Cardiac Disorders: Yes (HTN) Medications and Allergies Duloxetine HCl [Cymbalta] 60 mg PO BID 05/07/16 [History] Gabapentin [Neurontin] 800 mg PO TID 05/07/16 [History] HYDROcodone/Acet 10/325 mg [[place] 10-325 mg] 1 tab PO QID PRN 05/07/16 [History] Losartan Potassium [Cozaar] 100 mg PO DAILY 05/07/16 [History] Lovastatin 40 mg PO DAILY 05/07/16 [History] Montelukast [Singulair] 10 mg PO HS 05/07/16 [History] Omeprazole [PriLOSEC] 40 mg PO BID 05/07/16 [History] Tizanidine HCl [Zanaflex] 4 mg PO Q8H PRN 05/07/16 [History] Ipratropium/Albuterol Neb [Duoneb] 3 ml IH Q6HR PRN #30 inhsol 05/09/16 [Rx] Aspirin 81 mg PO DAILY 05/24/16 [History] Budesonide/Formoterol 160/4.5 [Symbicort 160/4.5] 2 puff IH BIDR 05/24/16 [ History] Cholecalciferol (Vitamin D3) [Vitamin D3] 50,000 unit PO OTT 05/24/16 [History] Fluticasone Propionate Nasal [Flonase] 1 spray NS DAILY PRN 05/24/16 [History] Amlodipine [Norvasc] 10 mg PO DAILY #30 tablet 05/27/16 [Rx] Cyanocobalamin (B-12) [Vitamin B12] 1,000 mcg PO DAILY #30 tablet 05/27/16 [Rx] Ferrous Sulfate 325 mg PO BIDWM #60 tablet 05/27/16 [Rx] Folic Acid 5 mg PO DAILY #30 tablet 05/27/16 [Rx] Allergies clonazepam [From Klonopin] Adverse Reaction (Verified 05/21/16 16:48) Nausea Oxycodone Adverse Reaction (Verified 05/24/16 10:21) Nausea Oxymorphone [From Opana] Adverse Reaction (Verified 05/24/16 10:20) Nausea tiotropium [From Spiriva with HandiHaler] Adverse Reaction (Verified 07/23/16 16 :41) Itching All Systems Review: A 10-system review of systems was performed and is negative for pertinent findings except as documented above in the HPI. Review of Systems: General - no recent weight loss, weight gain, fatigue, + fevers Eyes - no redness, loss of vision, dryness/itching/foreign body sensation ENT - no dryness of mouth, oral ulcerations, nasal ulcerations, sore throat. + recent TMJ evaluation. + recent tonsillitis. Cardiovascular - no chest pain, palpitations, lightheadedness, syncope Respiratory - + chronic shortness of breath, no pleuritic chest pain and no cough Gastrointestinal - no nausea, vomiting, diarrhea, bloating, black/tarry stools, blood in stools or heartburn. + hemoccult. Genitourinary - no pain on urination, hematuria, frothy urine or ulcerations. No history of gonorrheal/chlamydial infections Musculoskeletal - no morning stiffness, joint swelling, muscle aches, tendon/ ligament swelling or tenderness. + chronic back pain. Integumentary - no easy bruising, rashes, hives, photosensitivity, skin thickening, alopecia, color changes of hands. Neurological - no muscle weakness or paresthesias Hematologic/lymphatic - no tender or swollen glands, history of anemia or blood clots Rheumatology Exam Vital Signs, Last 4 Hours Temp Pulse Resp BP Pulse Ox 07/27/16 15:15 97.5 F L 87 15 107/72 93 L Exam: General - Alert and oriented x 3, no acute distress and appears comfortable HEENT - Conjunctiva clear, no facial rash, no nasal or oral mucosal lesions/ ulcerations. Mild tenderness at right TMJ. Heme/Lymph - No cervical or supraclavicular lymph node enlargement or tenderness. No pallor. Heart - S1S2 regular in rate and rhythm without murmurs, clicks or rubs. Lungs - Unlabored breathing, clear to auscultation bilaterally without wheezes or crackles Abdomen - Soft, nontender, nondistended. Unable to palpate any hepatosplenomegaly Skin - No clubbing, nodules, tophi, psoriasis, erythema, petichiae, malar rash, telangiectasias, sclerodactyly, nail pitting, onycholysis, digital ulcers Neurological - In bed and did not assess gait, muscle strength 5/5 in all four extremities Musculoskeletal - Full ROM of upper and lower extremities, no synovitis, no joint tenderness Rheumatology Results 07/27/16 04:59 07/27/16 04:59 Immunology Rheumatoid Factor < 15 IU/mL (0-29) 07/26/16 04:39 All other labs normal. Consult Discharge Plan - Plan Referrals: Leonor Russo CNP [Primary Care Provider] - 07/31/16 1:00 pm
[2016-07-27] MEDS: Levofloxacin 750 MG/150 ML 750 MG/150 ML BAG IVPB SCH (17:17)
[2016-07-27] MEDS: *HR* HYDROcodone/Acet 10/325 mg TABLET PO PRN ×2 (17:17→22:47)
[2016-07-28] MEDS: Piperacillin/Tazobactam 3.375 GM in D5% in Water (Mini-Bag+) 100 ML IVPB SCH ×2 (00:39→08:21)
[2016-07-28 04:37] LABS: Basophils % 0.7 %; Eosinophils # 0.3 K/mcL (0.0-0.6); Eosinophils % 4.2 %; Hematocrit 33.9 % (37.5-50.1); Immature Granulocytes % 0.7 % (0-4); Lymphocytes # 2.1 K/mcL (0.6-4.6); Lymphocytes % 34.3 %; Mean Corpuscular HGB Conc 32.2 g/dL (31.6-35.5); Mean Corpuscular Hemoglobin 29.9 pg (28.0-33.3); Mean Corpuscular Volume 93.1 fL (83.0-100.0); Monocytes # 0.5 K/mcL (0.0-1.3); Neutrophils # 3.1 K/mcL (1.6-8.9); Platelet Count 301 K/mcL (140-400); Red Blood Count 3.64 M/mcL (4.19-5.50); Red Cell Distribution Width 13.7 % (11.5-14.5); Segmented Neutrophils % 52.1 %
[2016-07-28 04:52] LABS: Hemoglobin 10.9 g/dL (12.9-16.9)
[2016-07-28 04:54] LABS: BUN/Creatinine Ratio 14 (6-26); Blood Urea Nitrogen 16 mg/dL (8-26); Calcium 8.9 mg/dL (8.6-10.8); Carbon Dioxide 27 mEq/L (19-29); Chloride 106 mEq/L (98-109); Glucose 88 mg/dL (70-99); Magnesium 1.8 mg/dL (1.6-2.6); Osmolality,Calculated 293 (280-300); Potassium 3.7 mEq/L (3.5-4.5); Sodium 141 mEq/L (136-145); eGFR For African Americans > 60 (> 60); eGFR For Non-African Americans > 60 (> 60)
[2016-07-28] MEDS: amLODIPine 5 MG TABLET PO SCH (08:21)
[2016-07-28] MEDS: Gabapentin 400 MG CAPSULE PO SCH (08:22)
[2016-07-28] MEDS: predniSONE 20 MG TABLET PO SCH (08:22)
[2016-07-28] MEDS: Aspirin 81 MG TAB.CHEW PO SCH (08:22)
[2016-07-28] MEDS: *HR* HYDROcodone/Acet 10/325 mg TABLET PO PRN (08:25)
[2016-07-28] MEDS: Budesonide/Formoterol 160/4.5 MDI IH SCH (08:25)
[2016-07-28 11:26] VITALS: BP 134/72
[2016-07-28 11:36] LABS: Myeloperoxidase Ab 5 AU/mL (0-19); Serine Protease-3 Antibody 0 AU/mL (0-19)
[2016-07-28 11:47] LABS: ANA IgG by ELISA NONE DETECTED (None Detected)
--- NOTE | 2016-07-28 13:39 | Discharge Summary ---
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 (3) LAURYN (acute kidney injury) Priority: Primary Status: Resolved (4) History of chronic obstructive pulmonary disease Priority: Primary Status: Chronic (5) DVT prophylaxis Priority: Secondary Status: Acute - Discharge Medications Prescriptions: Budesonide/Formoterol 160/4.5 [Symbicort 160/4.5] 2 puff IH BIDR 30 Days Levofloxacin [Levaquin] 750 mg PO DAILY #1 tablet Montelukast [Singulair] 10 mg PO HS 30 Days PredniSONE 40 mg PO DAILY 1 Days Home Medications: Duloxetine HCl [Cymbalta] 60 mg PO BID 05/07/16 [History] Gabapentin [Neurontin] 800 mg PO TID 05/07/16 [History] HYDROcodone/Acet 10/325 mg [[place] 10-325 mg] 1 tab PO QID PRN 05/07/16 [History] Losartan Potassium [Cozaar] 100 mg PO DAILY 05/07/16 [History] Lovastatin 40 mg PO DAILY 05/07/16 [History] Montelukast [Singulair] 10 mg PO HS 05/07/16 [History] Omeprazole [PriLOSEC] 40 mg PO BID 05/07/16 [History] Tizanidine HCl [Zanaflex] 4 mg PO Q8H PRN 05/07/16 [History] Ipratropium/Albuterol Neb [Duoneb] 3 ml IH Q6HR PRN #30 inhsol 05/09/16 [Rx] Aspirin 81 mg PO DAILY 05/24/16 [History] Budesonide/Formoterol 160/4.5 [Symbicort 160/4.5] 2 puff IH BIDR 05/24/16 [ History] Cholecalciferol (Vitamin D3) [Vitamin D3] 50,000 unit PO OTT 05/24/16 [History] Fluticasone Propionate Nasal [Flonase] 1 spray NS DAILY PRN 05/24/16 [History] Amlodipine [Norvasc] 10 mg PO DAILY #30 tablet 05/27/16 [Rx] Cyanocobalamin (B-12) [Vitamin B12] 1,000 mcg PO DAILY #30 tablet 05/27/16 [Rx] Ferrous Sulfate 325 mg PO BIDWM #60 tablet 05/27/16 [Rx] Folic Acid 5 mg PO DAILY #30 tablet 05/27/16 [Rx] Budesonide/Formoterol 160/4.5 [Symbicort 160/4.5] 2 puff IH BIDR 30 Days [Rx] Levofloxacin [Levaquin] 750 mg PO DAILY #1 tablet 07/28/16 [Rx] Montelukast [Singulair] 10 mg PO HS 30 Days 07/28/16 [Rx] PredniSONE 40 mg PO DAILY 1 Days 07/28/16 [Rx] Allergies/Adverse Reactions: Allergies clonazepam [From Klonopin] Adverse Reaction (Verified 05/21/16 16:48) Nausea Oxycodone Adverse Reaction (Verified 05/24/16 10:21) Nausea Oxymorphone [From Opana] Adverse Reaction (Verified 05/24/16 10:20) Nausea tiotropium [From Spiriva with HandiHaler] Adverse Reaction (Verified 07/23/16 16 :41) Itching Date of admission: 07/24/16 00:29 Primary care physician: Leonor Russo, Consults: 07/25/16 08:56 Consult to Physician [CONS] Routine Consulting Provider: Yesenia Osorio Reason for Consult: multifocal pneumonia, possible bronchoscopy Call Completed: Yes 07/26/16 08:36 Consult to Gastroenterology [CONS] Routine Consulting Provider: Gastroenterology Twyla Reason for Consult: iron def anemia, positve blood in stool, fever under evaluation Call Completed: No 07/27/16 13:52 Consult to Physician [CONS] Routine Consulting Provider: Vincenzo Murphy Reason for Consult: Concern for periodic fevers, as reported by patient. Infectious disease so far negative, no immediate signs of cancer, ESR -, CRP slightly elevated, RHF -, ANCAs pending. Want to make sure we are not missing a possible auto-immune reason for periodic fevers or amyloidosis Call Completed: Yes Discharging clinician: Benito Basilio Anticipated date of discharge: 07/28/16 - Patient Status Disposition: Home, Self-Care Condition: Good Functional capacity at discharge: independent ambulation Overall status at discharge: patient is progressing back to baseline - Ambulatory Orders Ambulatory Orders: SP PFT ba bronchodilator Time Frame: 1 Month, Facility: [facility], Location: Lab SP PFT body box lung volumes Time Frame: 1 Month, Facility: [facility], Location: Lab SP PFT DLCO Time Frame: 1 Month, Facility: [facility], Location: Lab - Discharge Instructions Instructions: Prednisone (By mouth), Levofloxacin (By mouth), Montelukast (By mouth), Budesonide/Formoterol (By breathing), Acute Kidney Injury (DC), Urinary Tract Infection in Men (DC), Chronic Obstructive Pulmonary Disease (DC), Sepsis (DC), Chronic Hypertension (DC), Anemia (GEN), Pneumonia (DC) Follow Up With: Leonor Russo CNP [Primary Care Provider] - 07/31/16 1:00 pm Additional Instructions: Follow-up with her PCP in 1-2 weeks Follow-up with rheumatology (Dr. Murphy) in 1-2 weeks for further workup of intermittent fever Follow-up with pulmonology (Dr. Osorio) in one month after having PFTs performed Take all medications as prescribed: Levaquin for additional day, prednisone for additional day, continue albuterol/Tiotroprium, start Symbicort, start Singulair Return to emergency room if worsening shortness of breath, return if fever, or development of chest pain - Diet and Activity Activity: increase activity as tolerated Diet: advance to your usual diet Interval History: Patient is doing well today, supplemental oxygen as lying on bedside next to him when seen. He has no concerns/complaints this morning. He reports feeling like he can go home and states that he would like to try to go home this afternoon if possible. He has no shortness of breath, no nausea/vomiting, no fever/chills, no chest pain, no abdominal pain, no nausea, no vomiting. Hospital course: Patient would present to [facility] with chief concern of intermittent fevers and altered mental status. 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 During workup he was also found to have an acute kidney injury. He was treated for healthcare associated pneumonia with empiric antibiotics including vancomycin, Levaquin, and Zosyn. His acute kidney injury was addressed with normal saline. He had no documented fevers while admitted to [facility]. Initial blood and sputum culture obtained did not show any growth. Pulmonology was consulted because of concerns of possible hemoptysis, he underwent bronchoscopy and was found to have mucus plugging and some slightly blood-tinged bronchoalveolar lavage washings. He presented to the hospital with a low hemoglobin at 10.1 and during his admission his hemoglobin trended down to 9.0, he was found to be fecal occult blood positive in his stool, but no point did he need transfusion. GI was consulted to assist with patient apparent GI bleed and he underwent upper endoscopy and colonoscopy. No active bleeding was identified in either upper or lower endoscopies. Internal hemorrhoids were found on colonoscopy and salmon-colored mucosa and medium size hiatal hernia were identified on upper endoscopy. These were biopsied. Following the endoscopy's the patient's hemoglobin rebounded and return to preadmission levels. At time of discharge, patient was clinically improved, hemodynamically stable, progressing to baseline, and agreeable with plan of care. Patient was advised to seek immediate medical attention for any new or worsening symptoms including but not limited to fever, chills, chest pain, chest pressure, dyspnea, cough, abdominal pain, nausea, vomiting, diarrhea, bloody stool, urine and the patient voiced understanding. Patient will follow-up with primary care physician: - Time Spent with Patient Total time spent providing and/or coordinating discharge services: - Constitutional Vitals: Temp Pulse Resp BP Pulse Ox 97.4 F L 87 16 134/72 94 L 07/28/16 11:25 07/28/16 11:25 07/28/16 11:25 07/28/16 11:25 07/28/16 11:25 General appearance: Present: cooperative, A&O X 3, pleasant, no acute distress, answers questions appropriately Exam: General: Cooperative, pleasant, no acute distress, alert and oriented 3, answers questions appropriately Head: Normocephalic, atraumatic Eye: Conjunctiva pink, sclera anicteric, EOMI, PERRL Neck: Supple, trachea midline Respiratory: No accessory muscle usage, clear to auscultation bilaterally, no wheezes/rhonchi/rales appreciated Cardiovascular: Regular rate and rhythm, S1 and S2 present, no murmurs/rubs/ gallops/clicks appreciated GI/abdominal: Nondistended, nontender, soft, normal bowel sounds, no peritoneal signs Extremities: No calf tenderness, noncyanotic, no pedal edema appreciated, warm, lower extremity pulses palpable and symmetrical Neurological: Alert and oriented 3, no facial droop,deficits, no focal deficits Skin: Dry, intact, normal color - VTE Documentation of Mechanical Device: Intermittent pneumatic compression device <Kael Ross - Last Filed: 07/29/16 07:24> - Discharge Diagnosis (1) Fever of unknown origin Status: Acute Date of admission: 07/24/16 00:29 Primary care physician: Leonor Russo, Consults: 07/25/16 08:56 Consult to Physician [CONS] Routine Consulting Provider: Yesenia Osorio Reason for Consult: multifocal pneumonia, possible bronchoscopy Call Completed: Yes 07/26/16 08:36 Consult to Gastroenterology [CONS] Routine Consulting Provider: Gastroentercarolyn Wakefield Reason for Consult: iron def anemia, positve blood in stool, fever under evaluation Call Completed: No 07/27/16 13:52 Consult to Physician [CONS] Routine Consulting Provider: Vincenzo Murphy Reason for Consult: Concern for periodic fevers, as reported by patient. Infectious disease so far negative, no immediate signs of cancer, ESR -, CRP slightly elevated, RHF -, ANCAs pending. Want to make sure we are not missing a possible auto-immune reason for periodic fevers or amyloidosis Call Completed: Yes Hospital course: Mr. Sweet is a 71 year old male - Time Spent with Patient Total time spent providing and/or coordinating discharge services: - Constitutional Vitals: Temp Pulse Resp BP Pulse Ox 97.4 F L 87 16 134/72 94 L 07/28/16 11:25 07/28/16 11:25 07/28/16 11:25 07/28/16 11:25 07/28/16 11:25 - Attending Attestation I examined this patient and my medical decision-making was reviewed with the SHIP/REC/DOC CONTROL/PA/Advanced Practice Nurse/Resident Physician. I agree with the documented findings, disposition and treatment plan as described except to the extent set forth below. Afebrile during admission. Will discharge home to complete antibiotic course for hcap and follow up as outpatient with rheumatology and pulmonology. D/W patient.
[2016-07-28] MEDS ORDERED: Aminoglycoside Consult 1 EACH MC ONE (15:05)
[2016-07-30 15:16] LABS: AFP Tumor Marker Non-Pregnant 6 ng/mL (0-9); Cancer Antigen-GI (CA 19-9) 8 U/mL (0-37)
[2016-07-30 15:24] LABS: SSA 52 (Anti-RO) Antibody 16 AU/mL (0-40); SSA 60 (Anti-RO) Antibody 6 AU/mL (0-40)
== END 2016-07-28 15:06 | disposition home or self-care (01) | DRG 871 ==
LOC: EMEROO 11:49 → 3BNU 11:49 → SUATTDRO 07-24 00:29
PROVIDERS: ADMIT Internal Medicine; ATTEND Internal Medicine
PROC: ENDOEBX (2016-07-27 09:35)

== ENCOUNTER 2016-11-07 07:10 | Observation (INO) ==
[2016-11-07] MEDS ORDERED: 0.9 % Sodium Chloride 1,000 ML IVC ONE ×2 (07:22→08:07)
--- NOTE | 2016-11-07 07:42 | Emergency Department Note ---
Disposition Clinical Impression: Fever, Nausea and vomiting, Leukocytosis, Renal insufficiency Disposition: Admitted As Inpatient Condition: Fair General Adult HPI - General Chief complaint: ED Nausea/Vomiting/Diarrhea Stated complaint: N/V, fever Time Seen by Provider: 11/07/16 07:14 Source: patient, family Limitations: no limitations Nursing Notes Reviewed: Yes Vital Signs Reviewed: Yes - History of Present Illness Pain Scale: 7 - Related Data Home Medications Medication Instructions Recorded Confirmed Duloxetine HCl [Cymbalta] 60 mg PO BID 05/07/16 11/07/16 Gabapentin [Neurontin] 800 mg PO TID 05/07/16 11/07/16 HYDROcodone/Acet 10/325 mg [[place] 1 tab PO QID PRN 05/07/16 11/07/16 10-325 mg] Losartan Potassium [Cozaar] 100 mg PO DAILY 05/07/16 11/07/16 Lovastatin 40 mg PO DAILY 05/07/16 11/07/16 Montelukast [Singulair] 10 mg PO HS 05/07/16 11/07/16 Omeprazole [PriLOSEC] 40 mg PO BID 05/07/16 11/07/16 Tizanidine HCl [Zanaflex] 4 mg PO Q8H PRN 05/07/16 11/07/16 Cholecalciferol (Vitamin D3) 50,000 unit PO OTT 05/24/16 11/07/16 [Vitamin D3] Fluticasone Propionate Nasal 50 mcg NS DAILY PRN 05/24/16 11/07/16 [Flonase] Ferrous Sulfate 325 mg PO DAILY 11/07/16 11/07/16 Previous Rx's Medication Instructions Recorded Ipratropium/Albuterol Neb [Duoneb] 3 ml IH Q6HR PRN #30 inhsol 05/09/16 Amlodipine [Norvasc] 10 mg PO DAILY #30 tablet 05/27/16 Cyanocobalamin (B-12) [Vitamin B12] 1,000 mcg PO DAILY #30 tablet 05/27/16 Folic Acid 5 mg PO DAILY #30 tablet 05/27/16 Budesonide/Formoterol 160/4.5 2 puff IH BIDR 30 Days 07/28/16 [Symbicort 160/4.5] Allergies Allergy/AdvReac Type Severity Reaction Status Date / Time tiotropium Allergy Itching Verified 11/07/16 09:48 [From Spiriva with HandiHaler] clonazepam [From Klonopin] AdvReac Nausea Verified 11/07/16 07:16 Oxycodone AdvReac Nausea Verified 11/07/16 07:16 Oxymorphone [From Opana] AdvReac Nausea Verified 11/07/16 07:16 Past Medical History - Past Medical History Medical history: Reports: COPD, hyperlipidemia, hypertension, other Surgical history: Reports: herniorrhaphy Psychiatric history: Reports: no psych history - Social History Smoking Status: Never smoker Smokeless Tobacco Status: No Alcohol use: Reports: none Drug use: Reports: none Physical Exam - General Limitations: no limitations General appearance: alert, in no apparent distress Course Vital Signs Temperature 97.6 F 11/07/16 07:17 Pulse Rate 109 11/07/16 07:17 Respiratory Rate 20 11/07/16 07:17 Blood Pressure 142/92 11/07/16 07:17 O2 Sat by Pulse Oximetry 95 11/07/16 07:17 Temperature 98.0 F 11/07/16 11:34 Pulse Rate 106 11/07/16 11:34 Respiratory Rate 18 11/07/16 11:34 Blood Pressure 142/65 11/07/16 11:34 O2 Sat by Pulse Oximetry 95 11/07/16 11:34 Oxygen Delivery Oxygen Delivery Room Air Medical Decision Making - MDM Narrative Medical decision making narrative: I examined this patient and my medical decision-making was reviewed with the INSOLE FILLER/PA/Advanced Practice Nurse/Resident Physician. I agree with the documented findings, disposition and treatment plan as described except to the extent set forth below. I evaluated this patient with Dr. Fisher, agree with his evaluation and management plan, supervised care the patient's stay. Patient 's been getting fevers at home. Had a history of pneumonia that is apparently resolved. He is still complaining of these fevers at home. He has had a chronic headache also which she has had since he had a subarachnoid bleed. He is stable at this time, will start a workup on him. CXR and CT of his head and make sure he does not have anything obvious for infection and consider admission. He is in agreement this plan. 0815 hrs.: Patient's white count is 17,000, he is still a little tachycardic is negative second liter fluids. He is not acidotic his lactate is normal. Waiting on CT and chest x-ray. Chest X-Ray 11/07/16 07:25 IMPRESSION: No acute pulmonary process. D/ / 11/07/2016 08:38:35 Porsha Lee MD / kirill Interpreting Provider: Porsha Lee MD Head CT 11/07/16 07:40 IMPRESSION: No acute intracranial abnormality. D/ / Lars Mccollum MD / Lars Mccollum MD Interpreting Provider: Lars Mccollum MD 0915 hrs.: Awaiting on urinalysis. And then we will go and bring him in for admission. Chest x-ray shows no signs of pneumonia, head CT shows no acute pathology. - Lab Data Result diagrams: 11/07/16 07:41 11/07/16 07:41 Lab Results 11/07/16 11/07/16 11/07/16 Range/Units 07:41 07:41 07:41 WBC 17.4 H (4.3-11.1) K/mcL RBC 4.43 (4.19-5.50) M/mcL Hgb 13.2 (12.9-16.9) g/dL Hct 39.7 (37.5-50.1) % MCV 89.6 (83.0-100.0) fL MCH 29.8 (28.0-33.3) pg MCHC 33.2 (31.6-35.5) g/dL RDW 13.4 (11.5-14.5) % Plt Count 256 (140-400) K/mcL MPV 10.2 (9.4-12.4) fL Immature Gran % 0.4 (0-4) % Seg Neutrophils % 85.8 % Lymphocytes % 6.9 % Monocytes % 6.4 % Eosinophils % 0.0 % Basophils % 0.5 % Neutrophils # 14.9 H (1.6-8.9) K/mcL Lymphocytes # 1.2 (0.6-4.6) K/mcL Monocytes # 1.1 (0.0-1.3) K/mcL Eosinophils # 0.0 (0.0-0.6) K/mcL Basophils # 0.1 (0.0-0.2) K/mcL PT 14.7 H (9.4-12.1) Seconds INR 1.4 APTT 33.7 (26.0-36.0) Seconds Sodium (136-145) mEq/L Potassium (3.5-4.5) mEq/L Chloride (98-109) mEq/L Carbon Dioxide (19-29) mEq/L BUN (8-26) mg/dL Creatinine (0.72-1.25) mg/dL Est GFR ( Amer) (> 60) Est GFR (Non-Af Amer) (> 60) BUN/Creatinine Ratio (6-26) Glucose (70-99) mg/dL Calculated Osmolality (280-300) Lactic Acid (0.5-2.2) mmol/L Calcium (8.6-10.8) mg/dL Phosphorus (2.3-4.7) mg/dL Magnesium (1.6-2.6) mg/dL Total Bilirubin (0.2-1.2) mg/dL Direct Bilirubin (0.0-0.5) mg/dL Indirect Bilirubin (0.0-1.2) mg/dL AST (5-34) Units/L ALT (0-55) Units/L Alkaline Phosphatase (38-126) Units/L Troponin I (0-0.03) ng/mL B-Natriuretic Peptide 14 (0-100) pg/mL Serum Total Protein (6.0-8.3) g/dL Albumin (3.5-5.0) g/dL Globulin (2.4-3.5) g/dL Albumin/Globulin Ratio (1.1-2.2) Lipase (8-78) Units/L Influ A (H1N1/09) PCR (Not Detect) Influenza Type A (PCR) (Negative) Influenza Type B (PCR) (Negative) 11/07/16 11/07/16 11/07/16 Range/Units 07:41 07:41 07:41 WBC (4.3-11.1) K/mcL RBC (4.19-5.50) M/mcL Hgb (12.9-16.9) g/dL Hct (37.5-50.1) % MCV (83.0-100.0) fL MCH (28.0-33.3) pg MCHC (31.6-35.5) g/dL RDW (11.5-14.5) % Plt Count (140-400) K/mcL MPV (9.4-12.4) fL Immature Gran % (0-4) % Seg Neutrophils % % Lymphocytes % % Monocytes % % Eosinophils % % Basophils % % Neutrophils # (1.6-8.9) K/mcL Lymphocytes # (0.6-4.6) K/mcL Monocytes # (0.0-1.3) K/mcL Eosinophils # (0.0-0.6) K/mcL Basophils # (0.0-0.2) K/mcL PT (9.4-12.1) Seconds INR APTT (26.0-36.0) Seconds Sodium 136 (136-145) mEq/L Potassium 4.0 (3.5-4.5) mEq/L Chloride 101 (98-109) mEq/L Carbon Dioxide 23 (19-29) mEq/L BUN 15 (8-26) mg/dL Creatinine 1.32 H (0.72-1.25) mg/dL Est GFR ( Amer) > 60 (> 60) Est GFR (Non-Af Amer) 53 L (> 60) BUN/Creatinine Ratio 11 (6-26) Glucose 107 H (70-99) mg/dL Calculated Osmolality 283 (280-300) Lactic Acid 1.3 (0.5-2.2) mmol/L Calcium 10.3 (8.6-10.8) mg/dL Phosphorus 3.1 (2.3-4.7) mg/dL Magnesium 1.8 (1.6-2.6) mg/dL Total Bilirubin 1.2 (0.2-1.2) mg/dL Direct Bilirubin 0.6 H (0.0-0.5) mg/dL Indirect Bilirubin 0.6 (0.0-1.2) mg/dL AST 17 (5-34) Units/L ALT 16 (0-55) Units/L Alkaline Phosphatase 89 (38-126) Units/L Troponin I 0.03 (0-0.03) ng/mL B-Natriuretic Peptide (0-100) pg/mL Serum Total Protein 8.1 (6.0-8.3) g/dL Albumin 3.9 (3.5-5.0) g/dL Globulin 4.2 H (2.4-3.5) g/dL Albumin/Globulin Ratio 0.9 L (1.1-2.2) Lipase 19 (8-78) Units/L Influ A (H1N1/) PCR (Not Detect) Influenza Type A (PCR) (Negative) Influenza Type B (PCR) (Negative) 11/07/16 Range/Units 08:37 WBC (4.3-11.1) K/mcL RBC (4.19-5.50) M/mcL Hgb (12.9-16.9) g/dL Hct (37.5-50.1) % MCV (83.0-100.0) fL MCH (28.0-33.3) pg MCHC (31.6-35.5) g/dL RDW (11.5-14.5) % Plt Count (140-400) K/mcL MPV (9.4-12.4) fL Immature Gran % (0-4) % Seg Neutrophils % % Lymphocytes % % Monocytes % % Eosinophils % % Basophils % % Neutrophils # (1.6-8.9) K/mcL Lymphocytes # (0.6-4.6) K/mcL Monocytes # (0.0-1.3) K/mcL Eosinophils # (0.0-0.6) K/mcL Basophils # (0.0-0.2) K/mcL PT (9.4-12.1) Seconds INR APTT (26.0-36.0) Seconds Sodium (136-145) mEq/L Potassium (3.5-4.5) mEq/L Chloride (98-109) mEq/L Carbon Dioxide (19-29) mEq/L BUN (8-26) mg/dL Creatinine (0.72-1.25) mg/dL Est GFR ( Amer) (> 60) Est GFR (Non-Af Amer) (> 60) BUN/Creatinine Ratio (6-26) Glucose (70-99) mg/dL Calculated Osmolality (280-300) Lactic Acid (0.5-2.2) mmol/L Calcium (8.6-10.8) mg/dL Phosphorus (2.3-4.7) mg/dL Magnesium (1.6-2.6) mg/dL Total Bilirubin (0.2-1.2) mg/dL Direct Bilirubin (0.0-0.5) mg/dL Indirect Bilirubin (0.0-1.2) mg/dL AST (5-34) Units/L ALT (0-55) Units/L Alkaline Phosphatase (38-126) Units/L Troponin I (0-0.03) ng/mL B-Natriuretic Peptide (0-100) pg/mL Serum Total Protein (6.0-8.3) g/dL Albumin (3.5-5.0) g/dL Globulin (2.4-3.5) g/dL Albumin/Globulin Ratio (1.1-2.2) Lipase (8-78) Units/L Influ A (H1N1/09) PCR NOT DETECTED (Not Detect) Influenza Type A (PCR) Negative (Negative) Influenza Type B (PCR) Negative (Negative)
--- NOTE | 2016-11-07 07:44 | Emergency Department Note ---
Disposition Clinical Impression: Renal insufficiency Fever Qualifiers: Fever type: unspecified Qualified Code(s): R50.9 - Fever, unspecified Nausea and vomiting Qualifiers: Vomiting type: unspecified Vomiting Intractability: non-intractable Qualified Code(s): R11.2 - Nausea with vomiting, unspecified Leukocytosis Qualifiers: Leukocytosis type: unspecified Qualified Code(s): D72.829 - Elevated white blood cell count, unspecified Disposition: Admitted As Inpatient Condition: Fair Referrals: NO,PCP [Non-Partnered Physician] - Forms: ED Satisfaction Letter Time of Disposition: 09:18 General Adult HPI - General Chief complaint: ED Nausea/Vomiting/Diarrhea Stated complaint: N/V, fever Time Seen by Provider: 11/07/16 07:14 Source: patient, family Mode of arrival: ambulatory Limitations: no limitations Nursing Notes Reviewed: Yes Vital Signs Reviewed: Yes - History of Present Illness HPI Narrative: Patient presents to the ED with his with the chief complaint of fever and nausea and vomiting. is the primary historian. She states that the patient has been battling pneumonia since April 2016. Has been admitted 3 times for this. 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 The patient states that he thinks a lot of this is medication related. States that he feels fine in the morning. However, after he takes his "handful of pills." He starts to feel very nauseated and tired. Over the last few days, He has stopped taking his Cymbalta and Zanaflex, but is unsure if this is helped his symptoms. He presents to the ED today for a fever of 102 at home, which was treated with acetaminophen. He also is complaining of some nausea and vomiting today. 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 He was on blood thinners, but is unsure what this was for, but they told him to stop taking those. He has not taken those in several months. His main complaint is nausea and is only vomited a few times, been nonbloody. There is no abdominal pain, chest pain, neck pain, changes in vision, worsening difficulty breathing, diarrhea, pain or swelling in his legs. Pain Scale: 7 - Related Data Home Medications Medication Instructions Recorded Confirmed Duloxetine HCl [Cymbalta] 60 mg PO BID 05/07/16 07/23/16 Gabapentin [Neurontin] 800 mg PO TID 05/07/16 07/23/16 HYDROcodone/Acet 10/325 mg [[place] 1 tab PO QID PRN 05/07/16 07/23/16 10-325 mg] Losartan Potassium [Cozaar] 100 mg PO DAILY 05/07/16 07/23/16 Lovastatin 40 mg PO DAILY 05/07/16 07/23/16 Montelukast [Singulair] 10 mg PO HS 05/07/16 07/24/16 Omeprazole [PriLOSEC] 40 mg PO BID 05/07/16 07/23/16 Tizanidine HCl [Zanaflex] 4 mg PO Q8H PRN 05/07/16 07/23/16 Aspirin 81 mg PO DAILY 05/24/16 07/23/16 Budesonide/Formoterol 160/4.5 2 puff IH BIDR 05/24/16 07/23/16 [Symbicort 160/4.5] Cholecalciferol (Vitamin D3) 50,000 unit PO OTT 05/24/16 07/23/16 [Vitamin D3] Fluticasone Propionate Nasal 1 spray NS DAILY PRN 05/24/16 07/23/16 [Flonase] Previous Rx's Medication Instructions Recorded Ipratropium/Albuterol Neb [Duoneb] 3 ml IH Q6HR PRN #30 inhsol 05/09/16 Amlodipine [Norvasc] 10 mg PO DAILY #30 tablet 05/27/16 Cyanocobalamin (B-12) [Vitamin B12] 1,000 mcg PO DAILY #30 tablet 05/27/16 Ferrous Sulfate 325 mg PO BIDWM #60 tablet 05/27/16 Folic Acid 5 mg PO DAILY #30 tablet 05/27/16 Budesonide/Formoterol 160/4.5 2 puff IH BIDR 30 Days 07/28/16 [Symbicort 160/4.5] Levofloxacin [Levaquin] 750 mg PO DAILY #1 tablet 07/28/16 Montelukast [Singulair] 10 mg PO HS 30 Days 07/28/16 PredniSONE 40 mg PO DAILY 1 Days 07/28/16 Allergies Allergy/AdvReac Type Severity Reaction Status Date / Time clonazepam [From Klonopin] AdvReac Nausea Verified 11/07/16 07:16 Oxycodone AdvReac Nausea Verified 11/07/16 07:16 Oxymorphone [From Opana] AdvReac Nausea Verified 11/07/16 07:16 tiotropium AdvReac Itching Verified 11/07/16 07:16 [From Spiriva with HandiHaler] All systems ED: reviewed and negative except as stated. Constitutional: Reports: fever. Denies: chills Eyes: Denies: vision change ENT ED: Denies: dysphagia Cardiovascular: Denies: chest pain, edema Respiratory: Reports: cough, sputum production (chronic ). Denies: dyspnea, wheezes Gastrointestinal: Reports: nausea, vomiting. Denies: abdominal pain, diarrhea, constipation Genitourinary: Denies: hematuria Musculoskeletal: Denies: back pain, neck pain Integumentary: Denies: rash Neurological: Reports: headache (chronic ). Denies: weakness, numbness, paresthesias Endocrine: Reports: fatigue Past Medical History - Past Medical History Attestation: Yes The following information was validated with the patient. Source: patient, obtained from family Medical history: Reports: COPD, hyperlipidemia, hypertension, other Surgical history: Reports: herniorrhaphy Psychiatric history: Reports: no psych history - Social History Smoking Status: Never smoker Smokeless Tobacco Status: No Alcohol use: Reports: none Drug use: Reports: none Physical Exam - General Limitations: no limitations General appearance: alert, in no apparent distress - Head Head exam: atraumatic, normocephalic, normal inspection - Eye Eye exam: Present: normal appearance, PERRL, EOMI. Absent: scleral icterus - ENT ENT exam: normal exam, normal oropharynx, mucous membranes moist - Neck Neck exam: Present: normal inspection, full ROM, trachea midline - Chest Chest inspection: Present: normal inspection, symmetric chest wall rise - Respiratory Respiratory exam: Present: other (Decreased breath sounds throughout, coarse). Absent: normal lung sounds bilaterally, respiratory distress, wheezes - Cardiovascular Cardiovascular exam: Present: tachycardia, normal heart sounds - Abdominal Exam Abdominal exam: Present: soft, Non-Tender. Absent: tenderness, distention, guarding, rebound, rigidity - Extremities Exam Extremities exam: Present: normal inspection, full ROM. Absent: tenderness, pedal edema - Neurological Exam Neurological exam: Present: alert, oriented X3 - Psychiatric Psychiatric exam: Present: flat affect - Skin Skin exam: Present: warm, dry, intact, normal color. Absent: diaphoresis Course Course Narrative: 71-year-old male presenting with fever home of 102, nausea and vomiting. Has a history of suspected subdural hematoma over the last 2 months with chronic headaches. No change from baseline. No changes in vision. Also has history of recurrent pneumonia in the setting of COPD. Presenting today with nausea and vomiting. No abdominal pain. Patient is slightly tachycardic. Broad workup initiated including chest x-ray and CT head. - Reevaluation(s) Reevaluation #1: Patient returned from CT at this time, white blood cell count 17,000 with a normal lactate area. Will order another liter of fluid at this time. Rest of the workup pending. The patient will likely need to be admitted. Time: 08:09 Reevaluation #2: Patient has responded to fluids. He is attempted to have a bowel movement, multiple times as he feels like he has to however, he has been unable to. 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 His abdominal exam still benign. He has not had any vomiting while in the emergency department. I do not think he is acutely obstructed. He will be admitted to the hospitalist service for further workup and evaluation. Vital Signs Temperature 97.6 F 11/07/16 07:17 Pulse Rate 109 11/07/16 07:17 Respiratory Rate 20 11/07/16 07:17 Blood Pressure 142/92 11/07/16 07:17 O2 Sat by Pulse Oximetry 95 11/07/16 07:17 Temperature 97.6 F 11/07/16 07:17 Pulse Rate 101 11/07/16 08:21 Respiratory Rate 22 11/07/16 07:46 Blood Pressure 142/72 11/07/16 08:21 O2 Sat by Pulse Oximetry 94 11/07/16 08:21 Oxygen Delivery Oxygen Delivery Room Air Medical Decision Making - Medical Records Medical records reviewed: Yes I reviewed the patient's medical records. - Lab Data Lab results reviewed: Yes I reviewed the patient's lab results. Result diagrams: 11/07/16 07:41 11/07/16 07:41 Lab Results 11/07/16 11/07/16 11/07/16 Range/Units 07:41 07:41 07:41 WBC 17.4 H (4.3-11.1) K/mcL RBC 4.43 (4.19-5.50) M/mcL Hgb 13.2 (12.9-16.9) g/dL Hct 39.7 (37.5-50.1) % MCV 89.6 (83.0-100.0) fL MCH 29.8 (28.0-33.3) pg MCHC 33.2 (31.6-35.5) g/dL RDW 13.4 (11.5-14.5) % Plt Count 256 (140-400) K/mcL MPV 10.2 (9.4-12.4) fL Immature Gran % 0.4 (0-4) % Seg Neutrophils % 85.8 % Lymphocytes % 6.9 % Monocytes % 6.4 % Eosinophils % 0.0 % Basophils % 0.5 % Neutrophils # 14.9 H (1.6-8.9) K/mcL Lymphocytes # 1.2 (0.6-4.6) K/mcL Monocytes # 1.1 (0.0-1.3) K/mcL Eosinophils # 0.0 (0.0-0.6) K/mcL Basophils # 0.1 (0.0-0.2) K/mcL PT 14.7 H (9.4-12.1) Seconds INR 1.4 APTT 33.7 (26.0-36.0) Seconds Sodium (136-145) mEq/L Potassium (3.5-4.5) mEq/L Chloride (98-109) mEq/L Carbon Dioxide (19-29) mEq/L BUN (8-26) mg/dL Creatinine (0.72-1.25) mg/dL Est GFR ( Amer) (> 60) Est GFR (Non-Af Amer) (> 60) BUN/Creatinine Ratio (6-26) Glucose (70-99) mg/dL Calculated Osmolality (280-300) Lactic Acid (0.5-2.2) mmol/L Calcium (8.6-10.8) mg/dL Phosphorus (2.3-4.7) mg/dL Magnesium (1.6-2.6) mg/dL Total Bilirubin (0.2-1.2) mg/dL Direct Bilirubin (0.0-0.5) mg/dL Indirect Bilirubin (0.0-1.2) mg/dL AST (5-34) Units/L ALT (0-55) Units/L Alkaline Phosphatase (38-126) Units/L Troponin I (0-0.03) ng/mL B-Natriuretic Peptide 14 (0-100) pg/mL Serum Total Protein (6.0-8.3) g/dL Albumin (3.5-5.0) g/dL Globulin (2.4-3.5) g/dL Albumin/Globulin Ratio (1.1-2.2) Lipase (8-78) Units/L 11/07/16 11/07/16 11/07/16 Range/Units 07:41 07:41 07:41 WBC (4.3-11.1) K/mcL RBC (4.19-5.50) M/mcL Hgb (12.9-16.9) g/dL Hct (37.5-50.1) % MCV (83.0-100.0) fL MCH (28.0-33.3) pg MCHC (31.6-35.5) g/dL RDW (11.5-14.5) % Plt Count (140-400) K/mcL MPV (9.4-12.4) fL Immature Gran % (0-4) % Seg Neutrophils % % Lymphocytes % % Monocytes % % Eosinophils % % Basophils % % Neutrophils # (1.6-8.9) K/mcL Lymphocytes # (0.6-4.6) K/mcL Monocytes # (0.0-1.3) K/mcL Eosinophils # (0.0-0.6) K/mcL Basophils # (0.0-0.2) K/mcL PT (9.4-12.1) Seconds INR APTT (26.0-36.0) Seconds Sodium 136 (136-145) mEq/L Potassium 4.0 (3.5-4.5) mEq/L Chloride 101 (98-109) mEq/L Carbon Dioxide 23 (19-29) mEq/L BUN 15 (8-26) mg/dL Creatinine 1.32 H (0.72-1.25) mg/dL Est GFR ( Amer) > 60 (> 60) Est GFR (Non-Af Amer) 53 L (> 60) BUN/Creatinine Ratio 11 (6-26) Glucose 107 H (70-99) mg/dL Calculated Osmolality 283 (280-300) Lactic Acid 1.3 (0.5-2.2) mmol/L Calcium 10.3 (8.6-10.8) mg/dL Phosphorus 3.1 (2.3-4.7) mg/dL Magnesium 1.8 (1.6-2.6) mg/dL Total Bilirubin 1.2 (0.2-1.2) mg/dL Direct Bilirubin 0.6 H (0.0-0.5) mg/dL Indirect Bilirubin 0.6 (0.0-1.2) mg/dL AST 17 (5-34) Units/L ALT 16 (0-55) Units/L Alkaline Phosphatase 89 (38-126) Units/L Troponin I 0.03 (0-0.03) ng/mL B-Natriuretic Peptide (0-100) pg/mL Serum Total Protein 8.1 (6.0-8.3) g/dL Albumin 3.9 (3.5-5.0) g/dL Globulin 4.2 H (2.4-3.5) g/dL Albumin/Globulin Ratio 0.9 L (1.1-2.2) Lipase 19 (8-78) Units/L - Radiology Data Radiology results reviewed: Yes I reviewed the patient's radiology results. - EKG Data EKG #1 EKG attestation: Yes I reviewed and interpreted this EKG. EKG results narrative: EKG shows sinus tach, rate 103, NH interval 144, QRS 102, QTC 369, normal axis, no ischemic changes. S.B.A.R. - S.B.A.R. Situation: Demographics, MOA Background: Presenting Complaint, Relevant PMH, Meds, & Allergies Assessment: Vital Signs, Course and respsone to treatment, Exam Concerns, Patient/Family Expectation, Pertinant Lab Results, Outstanding Labs Recommendation: Recommendation based on pending studies, treatments, or consults S.B.A.RScott Report Given to: Dr. José Luis Johnston Repor Time: 09:17
[2016-11-07 07:57] LABS: Basophils # 0.1 K/mcL (0.0-0.2); Basophils % 0.5 %; Hematocrit 39.7 % (37.5-50.1); Hemoglobin 13.2 g/dL (12.9-16.9); INR 1.4; Immature Granulocytes % 0.4 % (0-4); Lymphocytes # 1.2 K/mcL (0.6-4.6); Lymphocytes % 6.9 %; Mean Corpuscular HGB Conc 33.2 g/dL (31.6-35.5); Mean Corpuscular Hemoglobin 29.8 pg (28.0-33.3); Mean Corpuscular Volume 89.6 fL (83.0-100.0); Mean Platelet Volume 10.2 fL (9.4-12.4); Monocytes # 1.1 K/mcL (0.0-1.3); Monocytes % 6.4 %; Neutrophils # 14.9 K/mcL (1.6-8.9); Platelet Count 256 K/mcL (140-400); Prothrombin Time 14.7 Seconds (9.4-12.1); Red Blood Count 4.43 M/mcL (4.19-5.50); Red Cell Distribution Width 13.4 % (11.5-14.5); Segmented Neutrophils % 85.8 %
[2016-11-07 07:59] LABS: Activated Partial Thrombo Time 33.7 Seconds (26.0-36.0)
[2016-11-07 08:08] LABS: Alanine Aminotransferase 16 Units/L (0-55); Albumin 3.9 g/dL (3.5-5.0); Albumin/Globulin Ratio 0.9 (1.1-2.2); Alkaline Phosphatase 89 Units/L (38-126); Aspartate Amino Transferase 17 Units/L (5-34); BUN/Creatinine Ratio 11 (6-26); Bilirubin,Direct 0.6 mg/dL (0.0-0.5); Bilirubin,Indirect 0.6 mg/dL (0.0-1.2); Bilirubin,Total 1.2 mg/dL (0.2-1.2); Blood Urea Nitrogen 15 mg/dL (8-26); Calcium 10.3 mg/dL (8.6-10.8); Carbon Dioxide 23 mEq/L (19-29); Chloride 101 mEq/L (98-109); Globulin 4.2 g/dL (2.4-3.5); Glucose 107 mg/dL (70-99); Lipase 19 Units/L (8-78); Magnesium 1.8 mg/dL (1.6-2.6); Osmolality,Calculated 283 (280-300); Phosphorous 3.1 mg/dL (2.3-4.7); Sodium 136 mEq/L (136-145); Total Protein 8.1 g/dL (6.0-8.3); eGFR For African Americans > 60 (> 60); eGFR For Non-African Americans 53 (> 60)
[2016-11-07] MEDS ORDERED: Levalbuterol Neb 1.25 MG/3 ML IH SCH (10:00)
[2016-11-07] MEDS ORDERED: Vancomycin 1,000 MG in D5% in Water 250 ML IVPB SCH (10:00)
[2016-11-07] MEDS ORDERED: Ondansetron 4 MG/2 ML VIAL IVP PRN (10:03)
[2016-11-07] MEDS ORDERED: Magnesium Sulfate 1 GM in D5% in Water 100 ML IVPB ONE (10:06)
--- NOTE | 2016-11-07 10:09 | Internal Med History&Physical ---
Date of Encounter: 11/07/16 Time of Encounter: 10:07 Assessment and Plan (1) Sepsis Current visit: Yes Status: Acute Source of sepsis include possibly acute bronchitis versus urinary tract infection/prostatitis. Urine analysis will be performed immediately. I will also get a scrotal ultrasound. He has been noticing some increasing cough sputum production which is currently light yellowish in color, so possibly acute bronchitis is another differential. Patient had multiple similar presentations the past few month. Workup was on revealing and it was therefore thought that bronchitis was the culprit. Prior workup included negative rheumatologic workup, negative HIV and other viral serologies. etc. there was no fungal or mycobacterial disease on bronchoscopy aspirates done in July of this year. I will also get an echocardiogram transthoracic to look for any vegetations. Empiric antibiotics with vancomycin, cefepime, and Levaquin will be started. Hydration. He had received 2 L of normal saline in the emergency room continue normal soon 80 ml/h. Qualifiers: Qualified Code(s): A41.9 - Sepsis, unspecified organism (2) Acute kidney injury Current visit: Yes Status: Acute Due to sepsis and decreased PO fluids. Hydrate. Follow urine output. I would also get a bladder scan to make sure there is no urine obstruction. (3) Acute bronchitis Current visit: Yes Status: Acute Patient will be started on broad-spectrum antibiotics include vancomycin cefepime and Levaquin. I will give IV steroids today. Nebulizer treatments. Sputum culture. He is acquiring 2 L of nasal oxygen Qualifiers: Qualified Code(s): J20.9 - Acute bronchitis, unspecified (4) History of intracranial hemorrhage Current visit: Yes Status: Acute Patient is having chronic headaches. He denies any worsening headaches. CT scan performed in the emergency room shows no evidence of bleed. It was thought according to the patient to be related to aspirin therapy and this has been discontinued. (5) DVT prophylaxis Current visit: Yes Status: Acute Given history of subzero bleed, I will give the patient SCD boots for DVT prophylaxis today Internal Medicine - H&P: HPI Chief complaint: fever History of present illness: Mr. 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 He presents again to the emergency room today because of fever. He had elevated temperature the past 3 days up to 102. His girl friend has been noticing some increasing cough with sputum being light yellowish color and ocasionally pink. He appeared short of breath during my interview in the emergency room and was saturating early 90s. Patient also mentioned that he has been having frequent urination, urinating almost every hour. He has pain in the perineal area. He also mentioned that he is having pain in the right testicle. He has history of prior prostatitis. No loin pain. He has been constipated the past few days. He is still passing gas. He had an episode of non-bloody non bilious vomiting this morning. He denies any new neck pain or stiffness different from his chronic neck pain. No confusion. No skin rash. He denies any weight loss. No diarrhea. He denies any chest pain. No prior history of DVT or pulmonary embolism. Past Med Surg Social Fam HX - Past Medical History Medical history: COPD, hyperlipidemia, hypertension, other Psychiatric history: no psych history - Past Surgical History Surgical History: herniorrhaphy - Social History Smoking Status: Never smoker Smokeless Tobacco Status: No Alcohol use: none Drug use: none - Family History Mother Living Status: Hx Family Cardiac Disorders: Yes (HTN) Father Living Status: Hx Family Cardiac Disorders: Yes (HTN) Internal Medicine - H&P: Meds Duloxetine HCl [Cymbalta] 60 mg PO BID 05/07/16 [History] Gabapentin [Neurontin] 800 mg PO TID 05/07/16 [History] HYDROcodone/Acet 10/325 mg [Dexter 10-325 mg] 1 tab PO QID PRN 05/07/16 [History] Losartan Potassium [Cozaar] 100 mg PO DAILY 05/07/16 [History] Lovastatin 40 mg PO DAILY 05/07/16 [History] Montelukast [Singulair] 10 mg PO HS 05/07/16 [History] Omeprazole [PriLOSEC] 40 mg PO BID 05/07/16 [History] Tizanidine HCl [Zanaflex] 4 mg PO Q8H PRN 05/07/16 [History] Ipratropium/Albuterol Neb [Duoneb] 3 ml IH Q6HR PRN #30 inhsol 05/09/16 [Rx] Cholecalciferol (Vitamin D3) [Vitamin D3] 50,000 unit PO OTT 05/24/16 [History] Fluticasone Propionate Nasal [Flonase] 50 mcg NS DAILY PRN 05/24/16 [History] Amlodipine [Norvasc] 10 mg PO DAILY #30 tablet 05/27/16 [Rx] Cyanocobalamin (B-12) [Vitamin B12] 1,000 mcg PO DAILY #30 tablet 05/27/16 [Rx] Folic Acid 5 mg PO DAILY #30 tablet 05/27/16 [Rx] Budesonide/Formoterol 160/4.5 [Symbicort 160/4.5] 2 puff IH BIDR 30 Days [Rx] Ferrous Sulfate 325 mg PO DAILY 11/07/16 [History] Allergies tiotropium [From Spiriva with HandiHaler] Allergy (Verified 11/07/16 09:48) Itching clonazepam [From Klonopin] Adverse Reaction (Verified 11/07/16 07:16) Nausea Oxycodone Adverse Reaction (Verified 11/07/16 07:16) Nausea Oxymorphone [From Opana] Adverse Reaction (Verified 11/07/16 07:16) Nausea All Systems PM: A 10-system review of systems was performed and is negative for pertinent findings except as documented above in the HPI. Review of systems: 10 points review of systems is negative except for HPI - Constitutional Vitals: Temp Pulse Resp BP Pulse Ox 97.6 F 115 22 142/72 96 11/07/16 07:17 11/07/16 09:28 11/07/16 09:28 11/07/16 09:28 11/07/16 09:28 Exam: Gen.: patient is alert oriented, restless Cardiac: Normal S1 S2 no additional sounds or murmurs, tachycardic chest: Diminished air entry. Expiratory wheezing abdomen mildly distended, BS present, some voluntry guarding lower extremity: lax calf muscles neuro no focal deficit Internal Med - H&P Results - Labs CBC & Chem 7: 11/07/16 07:41 11/07/16 07:41
[2016-11-07 10:12] LABS: 2009 H1N1 PCR NOT DETECTED (Not Detect); Influenza A PCR Negative (Negative); Influenza B PCR Negative (Negative)
[2016-11-07] MEDS ORDERED: Fluticasone Propionate Nasal 50 MCG/SPRAY BOTTLE NS PRN (10:52)
[2016-11-07] MEDS ORDERED: *HR* HYDROcodone/Acet 5/325 mg TABLET PO PRN (10:54)
[2016-11-07] MEDS: 0.9 % Sodium Chloride 1,000 ML IVC SCH ×2 (10:59→23:31)
[2016-11-07] MEDS ORDERED: Azithromycin 500 MG in D5% in Water 250 ML IVPB SCH (11:00)
[2016-11-07] MEDS ORDERED: Levofloxacin 750 MG/150 ML 750 MG/150 ML BAG IVPB SCH (11:00)
[2016-11-07 11:33] LABS: Bilirubin,Urine Negative (Negative); Blood,Urine Moderate (Negative); Clarity,Urine Clear (Clear); Color,Urine Yellow (Yellow); Glucose,Urine (UA) Normal (Normal); Ketones,Urine 40 mg/dL (Negative); Leukocyte Esterase,Urine Negative (Negative); Nitrite,Urine Negative (Negative); Protein,Urine 30 mg/dL (Neg-Trace); Specific Gravity,Urine 1.017 (1.010-1.025); Urobilinogen,Urine Normal (Normal)
[2016-11-07 11:43] LABS: RBC,Urine 15-30 per hpf (0-3); WBC,Urine 0-3 per hpf (0-3)
[2016-11-07 11:44] LABS: Bacteria,Urine None Seen per hpf (None-Few); Hyaline Casts,Urine Few per lpf (None-Few); Squamous Epithelial Cell,Urine Moderate per lpf (None-Few)
[2016-11-07] MEDS: methylPREDNISolone 125 MG/2 ML VIAL IVP SCH ×3 (12:08→23:31)
[2016-11-07] MEDS: Cefepime HCl 1,000 MG in D5% in Water (Mini-Bag+) 100 ML IVPB SCH ×2 (12:08→17:31)
--- NOTE | 2016-11-07 12:29 | Electrocardiograph Report ---
[address] [address] Test Date: 2016-11-07 Pat Name: Bernard Sweet Department: 104 Room: 3B Gender: M [employer]er [employer]: MARY ANN : 1945 Requested By: Billy Fisher Order Number: [id number] Reading MD: Lukas Hills MD Measurements Intervals [place] Rate: 103 P: 67 WV: 144 QRS: 57 QRSD: 102 T: 53 QT: 309 QTc: 369 Interpretive Statements SINUS TACHYCARDIA Electronically Signed On 11-07-2016 12:27:42 EDT by Lukas Hills MD
[2016-11-07] MEDS: Vancomycin 1,000 MG in D5% in Water 250 ML IVPB SCH (13:00)
[2016-11-07] MEDS ORDERED: *HR* Heparin 5,000 UNIT/ML VIAL SQ SCH (14:00)
[2016-11-07] MEDS: Levalbuterol Neb 1.25 MG/3 ML IH SCH ×4 (15:37→23:12)
[2016-11-07] MEDS: amLODIPine 5 MG TABLET PO SCH (16:03)
[2016-11-07] MEDS: Gabapentin 300 MG CAPSULE PO SCH ×2 (16:03→20:25)
[2016-11-07] MEDS ORDERED: *HR* LORazepam 0.5 MG TABLET PO ONE (17:44)
[2016-11-07] MEDS: Budesonide/Formoterol 160/4.5 MDI IH SCH (20:27)
[2016-11-07] MEDS: Lactulose Oral Soln 20 GM/30 ML UDC PO SCH (20:29)
[2016-11-08] MEDS: 0.9 % Sodium Chloride 1,000 ML IVC SCH (02:05)
[2016-11-08] MEDS: Levalbuterol Neb 1.25 MG/3 ML IH SCH ×4 (03:50→11:52)
[2016-11-08 05:03] LABS: Hematocrit 34.7 % (37.5-50.1); Hemoglobin 11.5 g/dL (12.9-16.9); Immature Granulocytes % 0.3 % (0-4); Lymphocytes # 0.5 K/mcL (0.6-4.6); Lymphocytes % 8.1 %; Mean Corpuscular HGB Conc 33.1 g/dL (31.6-35.5); Mean Corpuscular Volume 87.6 fL (83.0-100.0); Mean Platelet Volume 10.6 fL (9.4-12.4); Monocytes # 0.1 K/mcL (0.0-1.3); Monocytes % 1.5 %; Neutrophils # 5.3 K/mcL (1.6-8.9); Platelet Count 201 K/mcL (140-400); Red Blood Count 3.96 M/mcL (4.19-5.50); Red Cell Distribution Width 12.9 % (11.5-14.5); Segmented Neutrophils % 90.1 %
[2016-11-08 05:04] LABS: BUN/Creatinine Ratio 12 (6-26); Blood Urea Nitrogen 10 mg/dL (8-26); Calcium 9.2 mg/dL (8.6-10.8); Carbon Dioxide 22 mEq/L (19-29); Chloride 104 mEq/L (98-109); Glucose 135 mg/dL (70-99); Osmolality,Calculated 287 (280-300); Potassium 3.7 mEq/L (3.5-4.5); Sodium 138 mEq/L (136-145); eGFR For African Americans > 60 (> 60); eGFR For Non-African Americans > 60 (> 60)
[2016-11-08 05:05] LABS: C-Reactive Protein 337 mg/L (Less than 5)
[2016-11-08] MEDS: Cefepime HCl 1,000 MG in D5% in Water (Mini-Bag+) 100 ML IVPB SCH ×2 (05:18→18:46)
[2016-11-08] MEDS: methylPREDNISolone 125 MG/2 ML VIAL IVP SCH ×3 (05:19→18:47)
[2016-11-08] MEDS: Budesonide/Formoterol 160/4.5 MDI IH SCH ×2 (07:55→20:33)
--- NOTE | 2016-11-08 08:28 | ECHO - Doppler Report ---
Echocardiogram Name: Bernard Sweet Date of Study: 11/07/2016 Date: 1945 Ht: 66.0 in Medical Record#: [id number] Age: 71 Wt: 157.0 lb Gender: Male BSA: 1.8 Order #: [id number] Location: [facility] Room #: 3b14 Reading Physician: Ruben Welch MD, [facility] Panel Installer: Paxton Dotson RDCS Ordering Physician: Hans Ordonez MD Primary Physician: Indications: Rule out Vegetation Impressions: Incomplete echocardiogram. Patient had altered mental status and kept grabbing the probe and shaking during the exam. Normal LV systolic function, LVEF 70%. Not all myocardial segments were adequately visualized. Diastolic function not assessed. Normal right ventricular size and function. No evidence of significant valvular dysfunction on limited assessment. Consider repeating an echocardiogram when the patient can tolerate the study. Left Ventricular Wall Motion: Rest Echo Findings The apical inferior, basal inferior, apical anterior and basal anterior arana were not visualized. All other wall segments showed normal motion. Findings: Study Quality * Incomplete echocardiogram. Patient had altered mental status and kept grabbing the probe and shaking during the exam. ECG Findings * Sinus tachycardia. Left Ventricle * Normal LV systolic function, LVEF 70%. Not all myocardial segments were adequately visualized. * Normal LV chamber size and wall thickness. * Diastolic function not assessed. Right Ventricle * Normal right ventricular size and function. Left Atrium * Normal left atrial size. Right Atrium * Normal right atrial size. Aorta * Normally sized aortic root. Pericardium * There is a trivial pericardial effusion present. IVC * The IVC was not visualized. Aortic Valve * Aortic valve not well visualized. * Function was not adequately assessed. Mitral Valve * Normal mitral valve structure. * No mitral stenosis. * Trace mitral regurgitation. Tricuspid Valve * Tricuspid valve not well visualized. * No tricuspid stenosis. * Trace tricuspid regurgitation. * Unable to estimate RVSP due to lack of TR jet. Pulmonic Valve * Pulmonic valve not well visualized. * No pulmonic stenosis. * No pulmonic regurgitation. Measurements: BP: 142/ 58 2D Normal Values RVIDd: 3.50 cm IVSd: 1.00 cm 0.6 - 1.0 cm LVIDd: 4.40 cm 3.7 - 5.6 cm LVPWd: .90 cm 0.6 - 1.1 cm LVIDs: 2.50 cm 1.5 - 3.6 cm AO: 2.90 cm < 4.0 cm %FS: 43.20 cm >25 % LA volume: 42 Updated by Ruben Welch MD, [facility] on 11/08/2016 8:21:47 AM electronically signed on 11/08/2016 8:22:39 AM with status of Final Wall Motion Ayala: 1=Normal, 2=Hypokinesis, 3=Akinesis, 4=Dyskinesis, 5=Aneurysmal, 6=Hyperkinetic, X=Not Visualized (Blank)=Missing
[2016-11-08] MEDS ORDERED: amLODIPine 5 MG TABLET PO SCH (09:00)
[2016-11-08] MEDS: amLODIPine 5 MG TABLET PO SCH (09:03)
[2016-11-08] MEDS: Pantoprazole 40 MG VIAL IVP SCH (09:03)
[2016-11-08] MEDS: Gabapentin 300 MG CAPSULE PO SCH ×3 (09:03→21:28)
[2016-11-08] MEDS: Hydrocortisone 100 MG/60 ML ENEMA RC SCH ×2 (09:04→22:34)
--- NOTE | 2016-11-08 11:25 | Event Note ---
Date of Encounter: 11/08/16 Time of Encounter: 11:00 Pt away for testing. Chart reviewed. CT A/P with mild stranding surrounding the rectum suspicious for proctitis. No pelvic abscess or perforation. Colonoscopy 07/27/[address] Lal with internal hemorrhoids. Plan for flex sig today. Give 2 tap water enemas at 15:00.
[2016-11-08] MEDS ORDERED: Levofloxacin 750 MG/150 ML 750 MG/150 ML BAG IVPB SCH (12:00)
[2016-11-08] MEDS: Vancomycin 1,000 MG in D5% in Water 250 ML IVPB SCH (12:03)
--- NOTE | 2016-11-08 12:56 | Internal Med Progress Note ---
Date of Encounter: 11/08/16 Time of Encounter: 10:30 (and 1230) - Assessment and plan (1) Altered mental status Current Visit: No Status: Resolved Assessment and plan: Patient has been alert and oriented 3 since admission. His family is upset and stated he has polypharmacy. We will continue his home medications none of which are new and evaluate his response. In review of his chart, patient has been seen numerous times for fever of unknown origin that is associated with acute onset of confusion. He has seen several subspecialty's name and has had several tests performed all of which have been inconclusive at this time. He was unable to see edi programmer Dr. Alvarez as he was inpatient at another hospital for the same complaint. He has been afebrile since admission. He did meet SIRS criteria initially with leukocytosis and tachycardia however his leukocytosis has resolved. Vital signs are stable. Unclear causation. Chest x -ray negative. Head CT negative. Abdominal CT revealing bronchiolitis and improvement in his prior pneumonia. Abdominal CT also revealing proctitis and GI is now on board. Unfortunately, do not have infectious disease services at this time for this chief complaint. Inflammatory markers are elevated consistent with inflammatory process with proctitis. Plan is for flexible sigmoidoscopy later today. Continue cefepime, level Floxin, and vancomycin. Patient complaining of severe right lower quadrant abdominal pain along his inguinal canal. He states that he had a hernia repaired in 1999 and has convinced himself that the mesh from the surgery has caused blockage or an issue. He believes is because of [employer] commercials he has seen recently regarding surgical mesh implants. I spoke to surgery who will come by and evaluate patient mostly to reassure him. Abdominal examination benign. Patient also endorsing severe right testicular pain, ultrasound of right testicle unremarkable. On examination, patient is restless, irritated, and with pressured speech at times. He clearly has underlying anxiety but this would not account for his fevers and confusion and leukocytosis. ITS Impressions Chest X-Ray 11/07/16 07:25 IMPRESSION: No acute pulmonary process. D/ / 11/07/2016 08:38:35 Porsha Lee MD / kirill Interpreting Provider: Porsha Lee MD Head CT 11/07/16 07:40 IMPRESSION: No acute intracranial abnormality. D/ / Lars Mccollum MD / Lars Mccollum MD Interpreting Provider: Lars Mccollum MD Abdomen/Pelvis CT 11/07/16 13:15 IMPRESSION: Interval development of mild stranding surrounding the rectum suspicious for proctitis. No pelvic abscess or perforation is identified. No other acute process is seen. Cholelithiasis and small hiatal hernia. Micronodular changes noted which appear scattered in the lung bases, some of which demonstrating a tree-in-bud like appearance suspicious for bronchiolitis. There is an area of resolved bronchiolitis noted in the left lower lobe as well. No spiculated lung mass. D/ / Yobany Haley MD / Yobany Haley MD Interpreting Provider: Yobany Haley MD Scrotum Ultrasound 11/08/16 10:30 IMPRESSION: Unremarkable testicular ultrasound with normal Doppler flow. D/ / Malorie Crews MD / Malorie Crews MD Interpreting Provider: Malorie Crews MD (2) Intermittent fever of unknown origin Current Visit: No Status: Acute Assessment and plan: See prior note for altered mental status (3) Proctitis Current Visit: Yes Status: Acute Assessment and plan: Imaging consistent with acute proctitis. Unclear causation. Patient stating he has a history of diverticulitis and states that he went home in 83 cans of cashews. Unlikely to be causative factor. Twice a day hydrocortisone suppositories for the inflammation. GI brought on board, plan is for a flexible sigmoidoscopy later today. Inflammatory markers elevated, ESR 79, CRP 337 ITS Impressions Abdomen/Pelvis CT 11/07/16 13:15 IMPRESSION: Interval development of mild stranding surrounding the rectum suspicious for proctitis. No pelvic abscess or perforation is identified. No other acute process is seen. Cholelithiasis and small hiatal hernia. Micronodular changes noted which appear scattered in the lung bases, some of which demonstrating a tree-in-bud like appearance suspicious for bronchiolitis. There is an area of resolved bronchiolitis noted in the left lower lobe as well. No spiculated lung mass. D/ / Yobany Haley MD / Yobany Haley MD Interpreting Provider: Yobany Haley MD (4) SIRS (systemic inflammatory response syndrome) Current Visit: Yes Status: Resolved Assessment and plan: Leukocytosis resolved. Patient has been afebrile since admission. He remains tachycardic however he states that he is in pain and is anxious at this time. He is hemodynamically stable and perfusing well. We will continue to monitor. (5) COPD (chronic obstructive pulmonary disease) Current Visit: No Status: Chronic Assessment and plan: No acute exacerbation. Patient denies shortness of breath above his norm. Patient upset that he was receiving his Xopenex scheduled every 4 hours stating that he takes it as needed at home. He states that he did not need it and now states that he feels more agitated and shaky. Changed to when necessary at this time. (6) DVT prophylaxis Current Visit: No Status: Acute Assessment and plan: IPC's ordered (7) HTN (hypertension) Current Visit: No Status: Chronic Assessment and plan: Blood pressure has been controlled up until now. He is currently borderline hypotensive however he is in pain and was upset earlier this morning, we will continue to trend. No indication for IV medications or adjustments to his medications at this time. At home, he is on losartan 100 mg daily, amlodipine 10 mg daily. Losartan was held due to his acute kidney injury which has since resolved, will resume at this time. Amlodipine has been continued as well. Qualifiers: Hypertension type: essential hypertension Qualified Code(s): I10 - Essential (primary) hypertension (8) LAURYN (acute kidney injury) Current Visit: No Status: Resolved (9) Acute and chronic respiratory failure Current Visit: No Status: Chronic Assessment and plan: On oxygen at home, patient denies shortness of breath above his norm. Qualifiers: Respiratory failure complication: hypoxia Qualified Code(s): J96.21 - Acute and chronic respiratory failure with hypoxia (10) Diabetes mellitus, type 2 Current Visit: No Status: Inactive Assessment and plan: It does not appear as if this patient has diabetes. He is on no medications at home. We will check an A1c. Qualifiers: Diabetes mellitus complication status: without complication Diabetes mellitus leather polisher insulin use: without leather polisher use Qualified Code(s): E11.9 - Type 2 diabetes mellitus without complications (11) Anemia Current Visit: No Status: Chronic Assessment and plan: Acute on chronic, we will continue to trend. Currently at the high end of his normal. Qualifiers: Anemia type: folate deficiency Folate deficiency anemia type: dietary Qualified Code(s): 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 (12) Interstitial lung disease Current Visit: No Status: Chronic (13) Nausea and vomiting Current Visit: Yes Status: Resolved Qualifiers: Vomiting type: unspecified Vomiting Intractability: non-intractable Qualified Code(s): R11.2 - Nausea with vomiting, unspecified (14) Leukocytosis Current Visit: Yes Status: Resolved (15) History of intracranial hemorrhage Current Visit: Yes Status: Chronic Assessment and plan: Head CT negative for acute processes. - Time Spent With Patient Greater than 35 minutes (investigation of numerous prior visits and lengthy discussion wiht patient and family) - Subjective Interval history: Patient seen and examined on his way to [facility], [place] and at that time, patient was very upset stating he wanted to go home immediately. Patient then seen and reexamined upon his return. Patient was much more calm and is highly concerned about his right lower quadrant abdominal pain. He is requesting to speak to a surgeon. He is also endorsing right testicular pain. He denies shortness of breath above his norm at this time. He states frustration over not being out of figure out "what is wrong with me." - Constitutional Vitals: Temp Pulse Resp BP Pulse Ox 98.1 F 107 20 167/80 93 11/08/16 11:37 11/08/16 11:37 11/08/16 11:52 11/08/16 11:37 11/08/16 11:52 General appearance: Present: A&O X 3, pleasant, no acute distress, answers questions appropriately - Head Head exam: Present: atraumatic, normocephalic - Eye Eye exam: Present: PERRL, conjuntiva pink, sclera anicteric Pupils: Present: PERRL - Neck Neck exam general surgery: Present: supple, trachea midline. Absent: lymphadenopathy - Respiratory Respiratory exam: Present: decreased breath sounds. Absent: accessory muscle use, rales, respiratory distress, rhonchi, wheezes - Cardiovascular Cardiovascular exam: Present: RRR, +S1, +S2, tachycardia. Absent: diastolic murmur, gallop, rubs, systolic murmur - GI/Abdominal GI/Abdominal exam: Present: distended, normal bowel sounds, soft, tenderness ( RLQ), no peritoneal signs - Extremities Exam Extremities exam: Present: warm, radial pulses palpable and symetrical. Absent : calf tenderness, cyanotic, pedal edema - Neurological Exam Neurological exam: Present: alert, CN II-XII intact, oriented X3, no focal deficits, strengths equal and symetr throughout. Absent: pronater drift, facial droop, speech deficit - Psychiatric Psychiatric exam: Present: agitated, anxious - Expanded Psychiatric Exam Focused psych exam: Present: pressured speech (at fatimah es), psychomotor agitation , restlessness - Skin Skin exam: Present: dry, intact, pallor, warm Internal Medicine: Result - Labs CBC & Chem 7: 11/08/16 03:19 11/08/16 03:19 Labs: Short CBC 11/08/16 Range/Units 03:19 WBC 5.9 D (4.3-11.1) K/mcL Hgb 11.5 L D (12.9-16.9) g/dL Hct 34.7 L (37.5-50.1) % Plt Count 201 (140-400) K/mcL Neutrophils # 5.3 (1.6-8.9) K/mcL BMP 11/08/16 03:19 Sodium 138 Potassium 3.7 Chloride 104 Carbon Dioxide 22 BUN 10 Creatinine 0.84 Glucose 135 H Calcium 9.2 - ABG Interpretation ABG results: PT/INR, D-dimer PT 14.7 Seconds (9.4-12.1) H 11/07/16 07:41 - Impressions Impressions Abdomen/Pelvis CT 11/07/16 13:15 IMPRESSION: Interval development of mild stranding surrounding the rectum suspicious for proctitis. No pelvic abscess or perforation is identified. No other acute process is seen. Cholelithiasis and small hiatal hernia. Micronodular changes noted which appear scattered in the lung bases, some of which demonstrating a tree-in-bud like appearance suspicious for bronchiolitis. There is an area of resolved bronchiolitis noted in the left lower lobe as well. No spiculated lung mass. D/ / Yobany Haley MD / Yobany Haley MD Interpreting Provider: Yobany Haley MD Scrotum Ultrasound 11/08/16 10:30 IMPRESSION: Unremarkable testicular ultrasound with normal Doppler flow. D/ / Malorie Crews MD / Malorie Crews MD Interpreting Provider: Malorie Crews MD Consult Discharge Plan - Plan Referrals: Leonor Russo, JOCELYNE [Primary Care Provider] -
[2016-11-08] MEDS ORDERED: Levalbuterol Neb 1.25 MG/3 ML IH PRN (13:26)
[2016-11-08] MEDS ORDERED: tiZANidine 4 MG TABLET PO PRN (13:31)
[2016-11-08] MEDS ORDERED: *HR* HYDROcodone/Acet 10/325 mg TABLET PO PRN (13:31)
[2016-11-08] MEDS ORDERED: *HR* Morphine 2 MG/ML SYRINGE IVP PRN (13:32)
[2016-11-08] MEDS ORDERED: Naloxone 0.4 MG/ML INJ IVP PRN (13:32)
[2016-11-08] MEDS ORDERED: Acetaminophen 325 MG TABLET PO PRN (13:32)
[2016-11-08] MEDS ORDERED: *HR* Midazolam HCl 5 MG/5 ML VIAL IVP ONE (16:21)
[2016-11-08] MEDS ORDERED: *HR* FentaNYL (PF) 100 MCG/2 ML VIAL ONE (16:22)
[2016-11-08] MEDS ORDERED: Simethicone 40 MG/0.6 ML MLS IR ONE (17:12)
[2016-11-08] MEDS: *HR* FentaNYL (PF) 100 MCG/2 ML VIAL IVP PRN ×2 (17:13→17:14)
[2016-11-08] MEDS: *HR* Midazolam HCl 5 MG/5 ML VIAL IVP PRN ×2 (17:13→17:14)
--- NOTE | 2016-11-08 17:13 | Pre-Sedation Evaluation ---
Pre-sedation evaluation - Pre-sedation checklist Procedure: bronchoscopy Recent Vitals: Last Vital Signs Temp 98.0 F 11/08/16 15:11 Pulse 95 11/08/16 16:32 Resp 16 11/08/16 16:32 BP 145/74 11/08/16 16:32 Pulse Ox 97 11/08/16 16:32 H&P (including ROS) documented in medical record: Yes Previous reaction to sedatives/anesthetics: No Dietary Status: No solid food in preceding 4 hrs and no liquid in preceding 2 hrs Dentition: No loose teeth or bridges ASA Classification *see protocol: CLASS III-Severe systemic disease Plan of Care: Pt appropriate candidate for procedure/moderate/conscious sedation , Risks/benefits of procedure/sedation discussed w/ patient/family
[2016-11-08] MEDS: Lactulose Oral Soln 20 GM/30 ML UDC PO SCH (21:27)
[2016-11-08] MEDS ORDERED: Vancomycin 750 MG in D5% in Water 250 ML IVPB SCH (23:00)
[2016-11-09] MEDS: methylPREDNISolone 125 MG/2 ML VIAL IVP SCH ×2 (00:14→06:28)
[2016-11-09 04:59] LABS: Hematocrit 32.7 % (37.5-50.1); Hemoglobin 10.8 g/dL (12.9-16.9); Immature Granulocytes % 0.5 % (0-4); Lymphocytes # 0.6 K/mcL (0.6-4.6); Lymphocytes % 7.6 %; Mean Corpuscular Hemoglobin 28.8 pg (28.0-33.3); Mean Corpuscular Volume 87.2 fL (83.0-100.0); Mean Platelet Volume 9.9 fL (9.4-12.4); Monocytes # 0.3 K/mcL (0.0-1.3); Monocytes % 3.7 %; Neutrophils # 7.2 K/mcL (1.6-8.9); Platelet Count 252 K/mcL (140-400); Red Blood Count 3.75 M/mcL (4.19-5.50); Red Cell Distribution Width 13.1 % (11.5-14.5); Segmented Neutrophils % 88.2 %
[2016-11-09 05:07] LABS: BUN/Creatinine Ratio 13 (6-26); Blood Urea Nitrogen 13 mg/dL (8-26); C-Reactive Protein 117 mg/L (Less than 5); Calcium 8.9 mg/dL (8.6-10.8); Carbon Dioxide 22 mEq/L (19-29); Chloride 104 mEq/L (98-109); Glucose 168 mg/dL (70-99); Osmolality,Calculated 294 (280-300); Potassium 3.2 mEq/L (3.5-4.5); Sodium 140 mEq/L (136-145); eGFR For African Americans > 60 (> 60); eGFR For Non-African Americans > 60 (> 60)
[2016-11-09 05:21] LABS: Hemoglobin A1C 5.4 %
[2016-11-09] MEDS: Cefepime HCl 1,000 MG in D5% in Water (Mini-Bag+) 100 ML IVPB SCH (06:28)
[2016-11-09] MEDS: Hydrocortisone 100 MG/60 ML ENEMA RC SCH (09:37)
[2016-11-09] MEDS: amLODIPine 5 MG TABLET PO SCH (09:41)
[2016-11-09] MEDS: Pantoprazole 40 MG VIAL IVP SCH ×2 (09:42→10:11)
[2016-11-09] MEDS: Gabapentin 300 MG CAPSULE PO SCH (09:42)
--- NOTE | 2016-11-09 10:12 | Event Note ---
Date of Encounter: 11/08/16 Time of Encounter: 16:00 Patient seen and examined for RLQ/groin discomfort. He states that he had his hernia repaired in 1999 and did have mesh placed at that time. He states that he has had constant pain in the RLQ/groin for the past 2 years without relief. The pain started suddenly after he strained/twisted "the wrong way". He has been examined and his CT/US reviewed with Dr. Reyes. No abnormality evident to account for the RLQ discomfort. Patient with no indication for surgical intervention. Recommendation is for pain management consult and Dr. Hammer has been notified per Dr. Reyes.
[2016-11-09] MEDS: Budesonide/Formoterol 160/4.5 MDI IH SCH (10:45)
[2016-11-09] MEDS ORDERED: Levofloxacin 750 MG/150 ML 750 MG/150 ML BAG IVPB SCH (11:00)
[2016-11-09 11:05] VITALS: BP 132/69
--- NOTE | 2016-11-09 11:38 | Discharge Summary ---
Date of Encounter: 11/09/16 Time of Encounter: 09:30 - Discharge Diagnosis (1) Altered mental status Priority: Primary Status: Resolved Comments: Patient remained alert and oriented 3 throughout this admission. Followup outpatient. (2) Intermittent fever of unknown origin Priority: Primary Status: Chronic Comments: See prior note for altered mental status (3) Proctitis Priority: Primary Status: Acute Comments: Confirmed via flexible sigmoidoscopy per GI. Biopsied with clip placement. We will send on hydrocortisone suppositories. (4) SIRS (systemic inflammatory response syndrome) Priority: Primary Status: Resolved (5) COPD (chronic obstructive pulmonary disease) Priority: Secondary Status: Chronic Comments: No acute exacerbation (6) DVT prophylaxis Priority: Primary Status: Acute Comments: IPC's ordered while admitted (7) HTN (hypertension) Priority: Secondary Status: Chronic Comments: Blood pressure has been controlled during this admission with resumption of his home regimen. At home, he is on losartan 100 mg daily, amlodipine 10 mg daily. Losartan was held due to his acute kidney injury which has since resolved and it was resumed. Qualifiers: Hypertension type: essential hypertension Qualified Code(s): I10 - Essential (primary) hypertension (8) LAURYN (acute kidney injury) Priority: Primary Status: Resolved (9) Acute and chronic respiratory failure Priority: Secondary Status: Chronic Comments: On oxygen at home, patient denied shortness of breath above his norm. Qualifiers: Respiratory failure complication: hypoxia Qualified Code(s): J96.21 - Acute and chronic respiratory failure with hypoxia (10) Diabetes mellitus, type 2 Priority: Secondary Status: Inactive Comments: THIS PATIENT DOES NOT HAVE DIABETES. A1C 5.4%. He is on no medications at home. Qualifiers: Diabetes mellitus complication status: without complication Diabetes mellitus terminal manager insulin use: without mcfp use Qualified Code(s): E11.9 - Type 2 diabetes mellitus without complications (11) Anemia Priority: Secondary Status: Chronic Comments: Acute on chronic, remained stable. Followup outpatient. 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 - Discharge Medications Prescriptions: Docusate [Colace] 100 mg PO BID #60 capsule Hydrocortisone Rectal CRM [Proctosol-Hc] 1 appl RC BID #1 tube PredniSONE 40 mg PO DAILY #10 tablet Home Medications: Duloxetine HCl [Cymbalta] 60 mg PO BID 05/07/16 [History] Gabapentin [Neurontin] 800 mg PO TID 05/07/16 [History] HYDROcodone/Acet 10/325 mg [[place] 10-325 mg] 1 tab PO QID PRN 05/07/16 [History] Losartan Potassium [Cozaar] 100 mg PO DAILY 05/07/16 [History] Lovastatin 40 mg PO DAILY 05/07/16 [History] Montelukast [Singulair] 10 mg PO HS 05/07/16 [History] Omeprazole [PriLOSEC] 40 mg PO BID 05/07/16 [History] Tizanidine HCl [Zanaflex] 4 mg PO Q8H PRN 05/07/16 [History] Ipratropium/Albuterol Neb [Duoneb] 3 ml IH Q6HR PRN #30 inhsol 05/09/16 [Rx] Cholecalciferol (Vitamin D3) [Vitamin D3] 50,000 unit PO OTT 05/24/16 [History] Fluticasone Propionate Nasal [Flonase] 50 mcg NS DAILY PRN 05/24/16 [History] Amlodipine [Norvasc] 10 mg PO DAILY #30 tablet 05/27/16 [Rx] Cyanocobalamin (B-12) [Vitamin B12] 1,000 mcg PO DAILY #30 tablet 05/27/16 [Rx] Folic Acid 5 mg PO DAILY #30 tablet 05/27/16 [Rx] Budesonide/Formoterol 160/4.5 [Symbicort 160/4.5] 2 puff IH BIDR 30 Days [Rx] Ferrous Sulfate 325 mg PO DAILY 11/07/16 [History] Docusate [Colace] 100 mg PO BID #60 capsule 11/09/16 [Rx] Hydrocortisone Rectal CRM [Proctosol-Hc] 1 appl RC BID #1 tube 11/09/16 [Rx] PredniSONE 40 mg PO DAILY #10 tablet 11/09/16 [Rx] Allergies/Adverse Reactions: Allergies tiotropium [From Spiriva with HandiHaler] Allergy (Verified 11/07/16 09:48) Itching clonazepam [From Klonopin] Adverse Reaction (Verified 11/07/16 07:16) Nausea Oxycodone Adverse Reaction (Verified 11/07/16 07:16) Nausea Oxymorphone [From Opana] Adverse Reaction (Verified 11/07/16 07:16) Nausea Procedures/tests Complete & Pending: Procedures Performed prior 72 hours Category Date Time Status abdominal/pelvis CT without contrast [CT abd pelvis wo Cat Scan 11/07/16 13: 15 Completed iv oral only] [CT] Stat Testicular Ultrasound [US scrotum doppler] [US] Stat Exams 11/08/16 10:30 Completed EV echocardiogram Routine Y 11/07/16 09:57 Completed Date of admission: 11/07/16 09:55 Primary care physician: Leonor Russo, Consults: 11/07/16 12:20 Consult to Jewel Bearing Broacher [CONS] Routine Reason for SW Consult: financial concerns r/t hospital bills 11/08/16 08:15 Consult to Gastroenterology [CONS] Routine Consulting Provider: Gastroenterology [place] Reason for Consult: ongoing fever of unknown origin. admitted july for same. abd ct reveals proctitis. Time Notified: 08:16 Call Completed: Yes 11/08/16 09:00 Consult to Infectious Diseases [CONS] Routine Consulting Provider: [facility] [place] Reason for Consult: fever of unknown origin. was admitted in july for same. +proctitis Time Notified: 09:01 Call Completed: Yes 11/08/16 12:47 Consult to Surgery [CONS] Routine Consulting Provider: Doc Reyes Reason for Consult: pt with right inguinal canal hernia repair in 1999. Severe pain to RLQ/inguinal area. Pt very concerned and demands to see a surgeon. Time Notified: 12:48 Call Completed: Yes 11/09/16 09:08 Consult to Pain Management [CONS] Routine Consulting Provider: [facility] [place] Reason for Consult: RLQ pain; s/p RIH repair in 1999; pain for 2 years Time Notified: 09:09 Call Completed: Yes Discharging clinician: Mary Aguirre Anticipated date of discharge: 11/09/16 - Patient Status Disposition: Home, Self-Care Condition: Fair Functional capacity at discharge: independent ambulation Overall status at discharge: patient is back to baseline - Discharge Instructions Follow Up With: Leonor Russo CNP [Primary Care Provider] - 11/15/16 1:00 pm Vincenzo Murphy DO [Partnered Physician] - Additional Instructions: Follow-up with primary care provider as scheduled, follow-up with rheumatology as scheduled - Diet and Activity Activity: increase activity as tolerated Diet: low fat, low cholesterol, low salt diet Hospital course: Mr. Sweet is a 71 year old male with past medical history of COPD on oxygen as needed at home, occupational lung injury due to/2: Exposure, history of subdural hematoma, several recent hospitalizations with chief complaint of fever of unknown etiology. Patient stating he presented to the emergency department chief complaint of a fever. Patient stating he has had a fever up to 102 for 3 days. His girlfriend also noticed increasing coughing with sputum that was occasionally pink. Patient also appeared short of breath upon presentation to the emergency department. Patient also endorsed having frequent urination and perianal pain. Patient also endorsed having pain to his right testicle. Furthermore, patient complaining of constipation for the past few days which he states is normal for him. He had one episode of vomiting on the morning of presentation. Workup in the emergency department unremarkable. Chest x-ray negative. Head CT negative. Patient was admitted to the hospitalist service for further evaluation and management. He technically met SIRS criteria initially with mild leukocytosis and tachycardia however his leukocytosis quickly resolved and his vital signs remained stable. Mild acute kidney injury resolved. Abdominal CT revealing bronchiolitis and improvement in his prior pneumonia. Abdominal CT also revealing proctitis so GI was brought on board he performed a flexible sigmoidoscopy which again confirmed proctitis with moderate inflammation of the rectum that was biopsied and a clip was placed. Scrotal ultrasound obtained which was unremarkable. Patient was also concerned about his right lower quadrant abdominal pain that he states he has had for the past 2 years. He states that he had a hernia repaired back in 1999 and he states that the television commercials telling him that problems with mesh have led him to feel that he has an issue with his hernia repair. Surgery was brought on board and cleared him for outpatient follow-up with no surgical intervention indicated. No abnormalities to right lower quadrant noted on abdominal CT. Patient remained afebrile throughout this admission. His proctitis was treated with hydrocortisone suppositories. He denied pain on day of discharge. Unfortunately, infectious disease services were not available at the time of this admission. Due to his initial confusion and leukocytosis, he was initially treated with cefepime, Levaquin, and vancomycin. After he improved, there is no indication for antibiotics. Urinalysis was negative. Influenza swab negative. Inflammatory markers were elevated consistent with inflammatory process with proctitis and trended down. He was also treated with systemic steroids. He was able to tolerate a regular diet while admitted. In review of his chart, patient has been seen numerous times for fever of unknown origin that is associated with acute onset of confusion. He has also been seen at several other [facility] hospitals for the same complaint. He has seen several subspecialty's and has had several tests performed all of which have been inconclusive at this time. He was unable to see grooving lathe tender Dr. Alvarez as he was inpatient at another hospital for the same complaint- he has been strongly encouraged to make his appointment that is scheduled for 12/14/16 for suspicion of autoimmune etiology. Initially upon his admission, there was possible discussion of transferring the patient to [facility] for an infectious disease consult however this was not clinically indicated as his SIRS criteria quickly resolved and he remained afebrile. His vital signs remain stable and he remained alert and oriented 3. He was able to tolerate a regular diet and there was no clinical indication to transfer the patient to another hospital. He was discharged home in stable condition with close outpatient follow-up recommended. ITS Impressions Chest X-Ray 11/07/16 07:25 IMPRESSION: No acute pulmonary process. D/ / 11/07/2016 08:38:35 Porsha Lee MD / kirill Interpreting Provider: Porsha Lee MD Head CT 11/07/16 07:40 IMPRESSION: No acute intracranial abnormality. D/ / Lars Mccollum MD / Lars Mccollum MD Interpreting Provider: Lars Mccollum MD Abdomen/Pelvis CT 11/07/16 13:15 IMPRESSION: Interval development of mild stranding surrounding the rectum suspicious for proctitis. No pelvic abscess or perforation is identified. No other acute process is seen. Cholelithiasis and small hiatal hernia. Micronodular changes noted which appear scattered in the lung bases, some of which demonstrating a tree-in-bud like appearance suspicious for bronchiolitis. There is an area of resolved bronchiolitis noted in the left lower lobe as well. No spiculated lung mass. D/ / Yobany Haley MD / Yobany Haley MD Interpreting Provider: Yobany Haley MD Scrotum Ultrasound 11/08/16 10:30 IMPRESSION: Unremarkable testicular ultrasound with normal Doppler flow. D/ / Malorie Crews MD / Malorie Crews MD Interpreting Provider: Malorie Crews MD Echocardiogram impressions: Incomplete echocardiogram. Patient had altered mental status and kept grabbing the probe and shaking during the exam. Normal LV systolic function, LVEF 70%. Not all myocardial segments were adequately visualized. Diastolic function not assessed. Normal right ventricular size and function. No evidence of significant valvular dysfunction on this limited assessment. - Time Spent with Patient Total time spent providing and/or coordinating discharge services: Greater than 30 minutes (time with patient and chart review) - Constitutional Vitals: Temp Pulse Resp BP Pulse Ox 97.8 F 100 16 132/69 95 11/09/16 07:29 11/09/16 07:29 11/09/16 10:45 11/09/16 07:29 11/09/16 10:45 General appearance: Present: A&O X 3, pleasant, no acute distress, answers questions appropriately - Head Head exam: Present: atraumatic, normocephalic - Eye Eye exam: Present: PERRL, conjuntiva pink, sclera anicteric Pupils: Present: PERRL - Neck Neck exam general surgery: Present: supple, trachea midline. Absent: lymphadenopathy - Respiratory Respiratory exam: Present: decreased breath sounds. Absent: accessory muscle use, rales, respiratory distress, rhonchi, wheezes - Cardiovascular Cardiovascular exam: Present: RRR, +S1, +S2. Absent: diastolic murmur, gallop, rubs, systolic murmur - GI/Abdominal GI/Abdominal exam: Present: normal bowel sounds, soft, tenderness (RLQ), no peritoneal signs. Absent: distended - Extremities Exam Extremities exam: Present: warm, radial pulses palpable and symetrical. Absent : calf tenderness, cyanotic, pedal edema - Neurological Exam Neurological exam: Present: alert, CN II-XII intact, normal gait, oriented X3, no focal deficits, strengths equal and symetr throughout. Absent: pronater drift, facial droop, speech deficit - Skin Skin exam: Present: dry, intact, normal color, warm - VTE Documentation of Mechanical Device: Intermittent pneumatic compression device
--- NOTE | 2016-11-09 11:51 | Gastroenterology Consult Note ---
<Ruben Watson - Last Filed: 11/09/16 11:49> Date of Encounter: 11/09/16 Time of Encounter: 10:55 - Time Spent With Patient Total time spent is greater than 50% in coordination of care (as documented) at patient's floor/unit and/or counseling patient: GI History of Present Illness - Data of Consult Patient: known to practice within the last 3 years Consult date: 11/09/16 Requesting Physician: Mary Garcia - Consult Narrative Reason for consult: Proctitis History of present illness: Mr. Sweet is a 71 year old male with PMHx of COPD, HLD, HTN, and black lung disease who presented to the ED with fever for 3 days prior to admission up to 102. He had been having increasing cough with occasional pink sputum. He reported osmani in the perineal area and right testicle. He denies confusion, rash , weight loss, diarrhea, chest pain. CT A/P with mild stranding surrounding the rectum suspicious for proctitis. No pelvic abscess or perforation. He reports some mild constipation if he takes iron supplement. Procedures: Colonoscopy 07/27/2016 Dr. Lal: Internal hemorrhoids, repeat in 5 years as prep was fair EGD 07/27/2016 Dr. Lal: Up's esophagus, medium hiatal hernia, gastritis. NSAIDs: ASA Anticoagulation: None A/P Proctitis: Flexible sigmoidoscopy completed yesterday with localized moderate inflammation found in the rectum secondary to proctitis, biopsied, clip placed. Constipation: Start daily fiber supplement. Past Med Surg Social Fam HX - Past Medical History Medical history: COPD, hyperlipidemia, hypertension, other Psychiatric history: no psych history - Past Surgical History Surgical History: herniorrhaphy - Social History Smoking Status: Never smoker Smokeless Tobacco Status: No Alcohol use: none Drug use: none - Family History Mother Living Status: Hx Family Cardiac Disorders: Yes (HTN) Father Living Status: Hx Family Cardiac Disorders: Yes (HTN) - Gastrointestinal Gastrointestinal: Present: as per HPI - Constitutional Constitutional: as per HPI - EENT Eyes: as per HPI Ears: Present: as per HPI Nose, mouth and throat: Present: as per HPI - Cardiovascular Cardiovascular ROS: Present: as per HPI - Respiratory Respiratory IM: Present: as per HPI - Genitourinary Genitourinary: Absent: change in color, Urinary frequency - Neurological ROS Neurological GI: Present: as per HPI - Hematologic/Lymphatic Hematologic/Lymphatic pediatric: Present: as per HPI - Musculoskeletal Musculoskeletal ROS GI: Present: as per HPI - Integumentary Integumentary GI: Present: as per HPI - Psychiatric ROS Psychiatric GI: Present: as per HPI - Endocrine Endocrine IM: Present: as per HPI - Constitutional Vitals: Temp Pulse Resp BP Pulse Ox 97.8 F 100 16 132/69 95 11/09/16 07:29 11/09/16 07:29 11/09/16 10:45 11/09/16 07:29 11/09/16 10:45 General appearance: Present: cooperative, A&O X 3, no acute distress, answers questions appropriately - Head Head exam: Present: atraumatic, normocephalic - Eye Eye exam: Present: normal appearance, sclera anicteric - ENT ENT exam: Present: mucous membranes moist - Neck Neck exam general surgery: Present: normal inspection, trachea midline - Respiratory Respiratory exam: Present: CTAB. Absent: rales, rhonchi - Cardiovascular Cardiovascular exam: Present: RRR, +S1, +S2 - GI/Abdominal GI/Abdominal exam: Present: soft, no peritoneal signs. Absent: distended, firm , guarding, tenderness - Rectal Rectal exam: Present: deferred - Extremities Exam Extremities exam: Present: warm - Neurological Exam Neurological exam: Present: no focal deficits - Psychiatric Psychiatric exam: Present: normal affect, normal mood - Skin Skin exam: Present: dry, intact, normal color, warm Results - Labs CBC & Chem 7: 11/09/16 04:04 11/09/16 04:04 Labs: Last Result ESR 87 mm/hr (0-10) H 11/09/16 04:04 Calcium 8.9 mg/dL (8.6-10.8) 11/09/16 04:04 Troponin I 0.03 ng/mL (0-0.03) 11/07/16 07:41 C-Reactive Protein 117 mg/L (Less than 5) H 11/09/16 04:04 Entire Visit Hgb 10.8 g/dL (12.9-16.9) L 11/09/16 04:04 Hct 32.7 % (37.5-50.1) L 11/09/16 04:04 PT 14.7 Seconds (9.4-12.1) H 11/07/16 07:41 Total Bilirubin 1.2 mg/dL (0.2-1.2) 11/07/16 07:41 AST 17 Units/L (5-34) 11/07/16 07:41 ALT 16 Units/L (0-55) 11/07/16 07:41 Lipase 19 Units/L (8-78) 11/07/16 07:41 - ABG ABG results: PT/INR, D-dimer PT 14.7 Seconds (9.4-12.1) H 11/07/16 07:41 - Impressions Impressions Scrotum Ultrasound 11/08/16 10:30 IMPRESSION: Unremarkable testicular ultrasound with normal Doppler flow. D/ / Malorie Crews MD / Malorie Crews MD Interpreting Provider: Malorie Crews MD Consult Discharge Plan - Plan Instructions: Prednisone (By mouth), Laxative, Stool Softeners (By mouth), Hydrocortisone (Rectal), Colonoscopy (DC), Proctitis (DC), Acute Kidney Injury ( DC), Acute Bronchitis (DC), Sepsis (DC) Additional Instructions: Follow-up with primary care provider as scheduled, follow-up with rheumatology as scheduled Referrals: Leonor Russo CNP [Primary Care Provider] - 11/15/16 1:00 pm Vincenzo Murphy DO [Partnered Physician] - Ajit Hammer DO [Partnered Physician] - 11/13/16 9:35 am Prescriptions: Docusate [Colace] 100 mg PO BID #60 capsule Hydrocortisone Rectal CRM [Proctosol-Hc] 1 appl RC BID #1 tube PredniSONE 40 mg PO DAILY #10 tablet <Jimbo Lal - Last Filed: 11/09/16 14:00> Date of Encounter: 11/09/16 Time of Encounter: 12:00 - Time Spent With Patient Total time spent is greater than 50% in coordination of care (as documented) at patient's floor/unit and/or counseling patient: GI History of Present Illness - Data of Consult Requesting Physician: Mary Garcia - Consult Narrative History of present illness: Mr. Sweet is a 71 year old male - Constitutional Vitals: Temp Pulse Resp BP Pulse Ox 97.8 F 100 16 132/69 95 11/09/16 07:29 11/09/16 07:29 11/09/16 10:45 11/09/16 07:29 11/09/16 10:45 Results - Labs CBC & Chem 7: 11/09/16 04:04 11/09/16 04:04 Labs: Last Result ESR 87 mm/hr (0-10) H 11/09/16 04:04 Calcium 8.9 mg/dL (8.6-10.8) 11/09/16 04:04 Troponin I 0.03 ng/mL (0-0.03) 11/07/16 07:41 C-Reactive Protein 117 mg/L (Less than 5) H 11/09/16 04:04 Entire Visit Hgb 10.8 g/dL (12.9-16.9) L 11/09/16 04:04 Hct 32.7 % (37.5-50.1) L 11/09/16 04:04 PT 14.7 Seconds (9.4-12.1) H 11/07/16 07:41 Total Bilirubin 1.2 mg/dL (0.2-1.2) 11/07/16 07:41 AST 17 Units/L (5-34) 11/07/16 07:41 ALT 16 Units/L (0-55) 11/07/16 07:41 Lipase 19 Units/L (8-78) 11/07/16 07:41 - ABG ABG results: PT/INR, D-dimer PT 14.7 Seconds (9.4-12.1) H 11/07/16 07:41 - Attending Attestation I examined this patient and my medical decision-making was reviewed with the CONSERVATION COORDINATOR/PA/Advanced Practice Nurse/Resident Physician. I agree with the documented findings, disposition and treatment plan as described except to the extent set forth below.
--- NOTE | 2016-11-09 13:27 | Pain Management Consultation ---
Date of Encounter: 11/09/16 Time of Encounter: 13:23 Assessment and Plan (1) Right groin pain Current Visit: Yes Status: Acute The assessment and plan as outlined above was discussed with the patient and/or family members who expressed understanding and agreement. All questions were answered. I will see the patient this coming week. The patient and I discussed options. Appears it could be related to inguinal nerve entrapment with acute exacerbation. Cannot rule out pain from the mesh however. Recommend starting gabapentin. Will see on follow up. (2) Right inguinal pain Current Visit: Yes Status: Acute The assessment and plan as outlined above was discussed with the patient and/or family members who expressed understanding and agreement. All questions were answered. History of Present Illness Chief complaint: right testicular pain HPI: Mr. Sweet is a 71 year old male Approximately in the year 1999, the patient underwent a right sided herniorrhaphy with mesh repair. The patient had chronic pain thereafter. The patient was "dealing with it" until approximately 1 year ago the patient was working on his truck when he suffered a severely acute exacerbation of the symptoms. The patient has nearly intractable pain since then . He also reports severe bouts of fever, malaise that it recurrent. Multiple hospital admissions with no known cause. Denies any other symptoms such as trouble with urination or defication. He does report some nausea with this occasionally. Past Med Surg Social Fam HX - Past Medical History Medical history: COPD, hyperlipidemia, hypertension, other Psychiatric history: no psych history - Past Surgical History Surgical History: herniorrhaphy - Social History Smoking Status: Never smoker Smokeless Tobacco Status: No Alcohol use: none Drug use: none - Family History Mother Living Status: Hx Family Cardiac Disorders: Yes (HTN) Father Living Status: Hx Family Cardiac Disorders: Yes (HTN) Medications and Allergies Duloxetine HCl [Cymbalta] 60 mg PO BID 05/07/16 [History] Gabapentin [Neurontin] 800 mg PO TID 05/07/16 [History] HYDROcodone/Acet 10/325 mg [[place] 10-325 mg] 1 tab PO QID PRN 05/07/16 [History] Losartan Potassium [Cozaar] 100 mg PO DAILY 05/07/16 [History] Lovastatin 40 mg PO DAILY 05/07/16 [History] Montelukast [Singulair] 10 mg PO HS 05/07/16 [History] Omeprazole [PriLOSEC] 40 mg PO BID 05/07/16 [History] Tizanidine HCl [Zanaflex] 4 mg PO Q8H PRN 05/07/16 [History] Ipratropium/Albuterol Neb [Duoneb] 3 ml IH Q6HR PRN #30 inhsol 05/09/16 [Rx] Cholecalciferol (Vitamin D3) [Vitamin D3] 50,000 unit PO OTT 05/24/16 [History] Fluticasone Propionate Nasal [Flonase] 50 mcg NS DAILY PRN 05/24/16 [History] Amlodipine [Norvasc] 10 mg PO DAILY #30 tablet 05/27/16 [Rx] Cyanocobalamin (B-12) [Vitamin B12] 1,000 mcg PO DAILY #30 tablet 05/27/16 [Rx] Folic Acid 5 mg PO DAILY #30 tablet 05/27/16 [Rx] Budesonide/Formoterol 160/4.5 [Symbicort 160/4.5] 2 puff IH BIDR 30 Days [Rx] Ferrous Sulfate 325 mg PO DAILY 11/07/16 [History] Docusate [Colace] 100 mg PO BID #60 capsule 11/09/16 [Rx] Hydrocortisone Rectal CRM [Proctosol-Hc] 1 appl RC BID #1 tube 11/09/16 [Rx] PredniSONE 40 mg PO DAILY #10 tablet 11/09/16 [Rx] Allergies tiotropium [From Spiriva with HandiHaler] Allergy (Verified 11/07/16 09:48) Itching clonazepam [From Klonopin] Adverse Reaction (Verified 11/07/16 07:16) Nausea Oxycodone Adverse Reaction (Verified 11/07/16 07:16) Nausea Oxymorphone [From Opana] Adverse Reaction (Verified 11/07/16 07:16) Nausea Review of Systems - Constitutional Constitutional ROS IM: as per HPI - Cardiovascular Cardiovascular ROS: no chest pain, no leg edema, no lightheadedness - Respiratory Respiratory: no pain on inspiration, no pain with cough - Gastrointestinal Gastrointestinal: no abdominal pain, no constipation, no diarrhea, no heartburn - Genitourinary Genitourinary ROS: no difficulty urinating, no flank pain, no urinary hesitancy - Musculoskeletal Musculoskeletal ROS: as per HPI, abnormal gait - Integumentary Integumentary: no erythema, no lesions, no swelling - Neurological Neurological ROS: as per HPI, abnormal gait - Psychiatric Psychiatric general: no anxiety, no confusion, no depression - Hematologic/Lymphatic Hematologic/Lymphatic pediatric: no easy bleeding, no easy bruising Physical Exam Initial Vital Signs Temp Pulse Resp BP Pulse Ox 97.6 F 109 20 142/92 95 11/07/16 07:17 11/07/16 07:17 11/07/16 07:17 11/07/16 07:17 11/07/16 07:17 - General physical appearance General physical appearance: awake & oriented - Eyes Eye exam: normal ocular movement - Abdomen Abdomen: soft, tender (Right inguinal, right testicular. No evidence of infection. No gross deformity. ) - Integumentary Integumentary general surgery: no rash - Psychiatric Psychiatric: oriented to time, oriented to person, oriented to place Results - Labs 11/09/16 04:04 11/09/16 04:04 Abnormal lab results RBC 3.75 M/mcL (4.19-5.50) L 11/09/16 04:04 Hgb 10.8 g/dL (12.9-16.9) L 11/09/16 04:04 Hct 32.7 % (37.5-50.1) L 11/09/16 04:04 ESR 87 mm/hr (0-10) H 11/09/16 04:04 PT 14.7 Seconds (9.4-12.1) H 11/07/16 07:41 Potassium 3.2 mEq/L (3.5-4.5) L 11/09/16 04:04 Glucose 168 mg/dL (70-99) H 11/09/16 04:04 Direct Bilirubin 0.6 mg/dL (0.0-0.5) H 11/07/16 07:41 C-Reactive Protein 117 mg/L (Less than 5) H 11/09/16 04:04 Globulin 4.2 g/dL (2.4-3.5) H 11/07/16 07:41 Albumin/Globulin Ratio 0.9 (1.1-2.2) L 11/07/16 07:41 Urine Protein 30 mg/dL (Neg-Trace) H 11/07/16 11:15 Urine Ketones 40 mg/dL (Negative) H 11/07/16 11:15 Urine Blood Moderate (Negative) H 11/07/16 11:15 Urine Microscopic RBC 15-30 per hpf (0-3) H 11/07/16 11:15 Ur Squamous Epith Cells Moderate per lpf (None-Few) H 11/07/16 11:15 Diabetes panel 11/09/16 11/09/16 Range/Units 04:04 04:04 Sodium 140 (136-145) mEq/L Potassium 3.2 L (3.5-4.5) mEq/L Chloride 104 (98-109) mEq/L Carbon Dioxide 22 (19-29) mEq/L BUN 13 (8-26) mg/dL Creatinine 1.02 (0.72-1.25) mg/dL Glucose 168 H (70-99) mg/dL Hemoglobin A1c 5.4 ( - 5.6) % Calcium 8.9 (8.6-10.8) mg/dL Calcium panel 11/09/16 Range/Units 04:04 Calcium 8.9 (8.6-10.8) mg/dL Pituitary panel 11/09/16 Range/Units 04:04 Sodium 140 (136-145) mEq/L Potassium 3.2 L (3.5-4.5) mEq/L Chloride 104 (98-109) mEq/L Carbon Dioxide 22 (19-29) mEq/L BUN 13 (8-26) mg/dL Creatinine 1.02 (0.72-1.25) mg/dL Glucose 168 H (70-99) mg/dL Calcium 8.9 (8.6-10.8) mg/dL Adrenal panel 11/09/16 Range/Units 04:04 Sodium 140 (136-145) mEq/L Potassium 3.2 L (3.5-4.5) mEq/L Chloride 104 (98-109) mEq/L Carbon Dioxide 22 (19-29) mEq/L BUN 13 (8-26) mg/dL Creatinine 1.02 (0.72-1.25) mg/dL Glucose 168 H (70-99) mg/dL Calcium 8.9 (8.6-10.8) mg/dL All other labs normal. - VTE Documentation of Mechanical Device: Intermittent pneumatic compression device Consult Discharge Plan - Plan Instructions: Prednisone (By mouth), Laxative, Stool Softeners (By mouth), Hydrocortisone (Rectal), Colonoscopy (DC), Proctitis (DC), Acute Kidney Injury ( DC), Acute Bronchitis (DC), Sepsis (DC) Additional Instructions: Follow-up with primary care provider as scheduled, follow-up with rheumatology as scheduled Referrals: Leonor Russo CNP [Primary Care Provider] - 11/15/16 1:00 pm Vincenzo Murphy DO [Partnered Physician] - Prescriptions: Docusate [Colace] 100 mg PO BID #60 capsule Hydrocortisone Rectal CRM [Proctosol-Hc] 1 appl RC BID #1 tube PredniSONE 40 mg PO DAILY #10 tablet
[2016-11-09] MEDS ORDERED: Aminoglycoside Consult 1 EACH MC ONE (14:02)
== END 2016-11-09 14:03 | disposition home or self-care (01) ==
LOC: EMEROO 07:10 → 3BNU 07:10
PROVIDERS: ADMIT Hospitalist; ATTEND Nurse Practitioner Family